=== PATIENT | female | born 1995 | race Caucasian/White ===

== ENCOUNTER 2019-03-02 11:31 | Emergency (ER) | payer BC, SELFPAY ==
[2019-03-02 11:43] VITALS: BP 108/69; PULSE 145; RESP 18; TEMP 36.7; O2SAT 96; BMI 27.3
--- NOTE | 2019-03-02 11:51 | XR_ITS ---
XR chest portable HISTORY: ITS.REASON: tachycardia ORDERING PHYSICIAN: Shlomo Nevarez MD PATIENT AGE: 23 years COMPARISON: None FINDINGS: The cardiomediastinal silhouette and pulmonary vascularity are within normal limits. The lungs are clear without infiltrates, suspicious nodules, or pleural effusions. There is mild elevated right hemidiaphragm No acute bony abnormalities. IMPRESSION: No acute finding
--- NOTE | 2019-03-02 11:53 | HMH.EDGENADL ---
ED Disposition Clinical Impression: Sinus tachycardia Disposition: Home, Self-Care Condition on Discharge: Good Prescriptions: Metoprolol Tartrate [Lopressor 25mg tablet] 25 mg PO BID 7 Days #14 tab Referrals: Provider,Nita, [Primary Care Provider] - Stephan Martin MD [Staff Physician] - - Critical Care Critical Care Time: No Attestation: On , the high probability of a clinically significant, sudden or life threatening deterioration of the following system(s) required my full and direct attention, intervention and personal management. The time I documented below is in addition to time spent performing reported procedures but includes the following listed in this critical care notation. Medical Decision Making - Medical Records Medical records reviewed: Yes: I reviewed the patient's medical records. - Toño Inquiry Pt receiving controlled substance: No Vital Signs: 03/02/19 11:43 03/02/19 13:31 03/02/19 14:14 Temperature 98.1 F Temperature Source Oral Pulse Rate [Right Brachial] 145 H 126 H 140 H Respiratory Rate 18 Blood Pressure [Right Arm] 108/69 L 106/50 L 117/71 Blood Pressure Mean [Right Arm] 82 68 86 Blood Pressure Source [Right Arm] Automatic Cuff Blood Pressure Position [Right Arm] Sitting 02 Sat by Pulse Oximetry 96 98 100 Oxygen Delivery Method Room Air 03/02/19 16:00 Temperature Temperature Source Pulse Rate [Right Brachial] 132 H Respiratory Rate 18 Blood Pressure [Right Arm] 98/62 L Blood Pressure Mean [Right Arm] 74 Blood Pressure Source [Right Arm] Automatic Cuff Blood Pressure Position [Right Arm] Sitting 02 Sat by Pulse Oximetry 98 Oxygen Delivery Method Room Air - Lab Data Lab results reviewed: Yes: I reviewed the patient's lab results. Lab Results 03/02/19 11:40: WBC 13.7 H, RBC 4.67, Hgb 13.9, Hct 38.8, MCV 83.1, MCH 29.7, MCHC 35.7 H, RDW 13.0, Plt Count 249, MPV 7.3 L, Neut % (Auto) 85.8 H, Lymph % (Auto) 9.1 L, [place] % (Auto) 4.6, Eos % (Auto) 0.1, Baso % (Auto) 0.4, Neut # (Auto) 11.8 H, Lymph # (Auto) 1.3, [place] # (Auto) 0.6, Eos # (Auto) 0.0, Baso # (Auto) 0.1, Total Counted 100, Neutrophils % (Manual) 83 H, Band Neutrophils % 7.0, Lymphocytes % (Manual) 5 L, Monocytes % (Manual) 4, Eosinophils % (Manual) 1, Platelet Estimate Normal, RBC Morphology Normal 03/02/19 11:40: D-Dimer 101 03/02/19 11:40: Sodium 136, Potassium 3.8, Chloride 100, Carbon Dioxide 22, Anion Gap 17.8 H, BUN 10, Creatinine 0.84, Estimated Creat Clear 132, Estimated GFR 85, Est GFR ( Amer) 103, Glucose 97, Calcium 8.5, Total Bilirubin 0.7, AST 19, ALT 31, Alkaline Phosphatase 60, Total Creatine Kinase 43, Troponin I < 0.02, Total Protein 7.3, Albumin 3.6, Globulin 3.7 H, Albumin/Globulin Ratio 1.0 L, TSH 0.67, Thyroxine (T4) 8.3 03/02/19 11:45: Urine Color Yellow, Urine Appearance Sl cloudy, Urine pH 6.5, Ur Specific [place] 1.025, Urine Protein 1+, Urine Glucose (UA) Negative, Urine Ketones Negative, Urine Blood 1+, Urine Nitrate Negative, Urine Bilirubin Negative, Urine Urobilinogen 0.2, Ur Leukocyte Esterase 2+ A, Urine RBC Occasional, Urine WBC 5-10, Ur Squamous Epith Cells 20-50, Urine Bacteria 1+ 03/02/19 11:45: Urine HCG, Qual Negative 03/02/19 11:45: Urine Opiates Screen Negative, Urine Methadone Screen Negative, Ur Barbituates Screen Negative, Ur Phencyclidine Scrn Negative, Ur Amphetamines Screen Negative, U Benzodiazepines Scrn Negative, Urine Cocaine Screen Negative, U Marijuana (THC) Screen Negative 03/02/19 13:14: Group A Strep Rapid Negative 03/02/19 13:41: Lactate 1.5 Result diagrams: 03/02/19 11:40 03/02/19 11:40 Orders (Tests/Meds): ED MEDICATIONS Discontinued Medications Generic Name Dose Route Start Last Admin Trade Name Freq PRN Reason Stop Dose Admin Sodium Chloride 1,000 mls @ 999 mls/hr 03/02/19 12:00 03/02/19 12:21 Sod Chlor 0.9% 1000ml Bag IV 03/02/19 13:00 999 mls/hr .Q1H1M BRANDON Administration Metoprolol Tartrate 5 mg 03/02
--- NOTE | 2019-03-02 11:56 | ED_ITS ---
ED Disposition Clinical Impression: Sinus tachycardia Disposition: Home, Self-Care Condition on Discharge: Good Prescriptions: Metoprolol Tartrate [Lopressor 25mg tablet] 25 mg PO BID 7 Days #14 tab Referrals: Provider,Nita, [Primary Care Provider] - Stephan Martin MD [Staff Physician] - - Critical Care Critical Care Time: No Attestation: On , the high probability of a clinically significant, sudden or life threatening deterioration of the following system(s) required my full and direct attention, intervention and personal management. The time I documented below is in addition to time spent performing reported procedures but includes the following listed in this critical care notation. Medical Decision Making - Medical Records Medical records reviewed: Yes: I reviewed the patient's medical records. - Toño Inquiry Pt receiving controlled substance: No Vital Signs: 03/02/19 11:43 03/02/19 13:31 03/02/19 14:14 Temperature 98.1 F Temperature Source Oral Pulse Rate [Right Brachial] 145 H 126 H 140 H Respiratory Rate 18 Blood Pressure [Right Arm] 108/69 L 106/50 L 117/71 Blood Pressure Mean [Right Arm] 82 68 86 Blood Pressure Source [Right Arm] Automatic Cuff Blood Pressure Position [Right Arm] Sitting 02 Sat by Pulse Oximetry 96 98 100 Oxygen Delivery Method Room Air 03/02/19 16:00 Temperature Temperature Source Pulse Rate [Right Brachial] 132 H Respiratory Rate 18 Blood Pressure [Right Arm] 98/62 L Blood Pressure Mean [Right Arm] 74 Blood Pressure Source [Right Arm] Automatic Cuff Blood Pressure Position [Right Arm] Sitting 02 Sat by Pulse Oximetry 98 Oxygen Delivery Method Room Air - Lab Data Lab results reviewed: Yes: I reviewed the patient's lab results. Lab Results 03/02/19 11:40: WBC 13.7 H, RBC 4.67, Hgb 13.9, Hct 38.8, MCV 83.1, MCH 29.7, MCHC 35.7 H, RDW 13.0, Plt Count 249, MPV 7.3 L, Neut % (Auto) 85.8 H, Lymph % (Auto) 9.1 L, [place] % (Auto) 4.6, Eos % (Auto) 0.1, Baso % (Auto) 0.4, Neut # (Auto) 11.8 H, Lymph # (Auto) 1.3, [place] # (Auto) 0.6, Eos # (Auto) 0.0, Baso # (Auto) 0.1, Total Counted 100, Neutrophils % (Manual) 83 H, Band Neutrophils % 7.0, Lymphocytes % (Manual) 5 L, Monocytes % (Manual) 4, Eosinophils % (Manual) 1, Platelet Estimate Normal, RBC Morphology Normal 03/02/19 11:40: D-Dimer 101 03/02/19 11:40: Sodium 136, Potassium 3.8, Chloride 100, Carbon Dioxide 22, Anion Gap 17.8 H, BUN 10, Creatinine 0.84, Estimated Creat Clear 132, Estimated GFR 85, Est GFR ( Amer) 103, Glucose 97, Calcium 8.5, Total Bilirubin 0.7, AST 19, ALT 31, Alkaline Phosphatase 60, Total Creatine Kinase 43, Troponin I < 0.02, Total Protein 7.3, Albumin 3.6, Globulin 3.7 H, Albumin/Globulin Ratio 1.0 L, TSH 0.67, Thyroxine (T4) 8.3 03/02/19 11:45: Urine Color Yellow, Urine Appearance Sl cloudy, Urine pH 6.5, Ur Specific [place] 1.025, Urine Protein 1+, Urine Glucose (UA) Negative, Urine Ketones Negative, Urine Blood 1+, Urine Nitrate Negative, Urine Bilirubin Negative, Urine Urobilinogen 0.2, Ur Leukocyte Esterase 2+ A, Urine RBC Occasional, Urine WBC 5-10, Ur Squamous Epith Cells 20-50, Urine Bacteria 1+ 03/02/19 11:45: Urine HCG, Qual Negative 03/02/19 11:45: Urine Opiates Screen Negative, Urine Methadone Screen Negative, Ur Barbituates Screen Negative, Ur Phencyclidine Scrn Negative, Ur Amphetamines Sc
[2019-03-02 12:08] LABS: Microscopic, Urine URINE MICROSCOPIC (MICROSCOPIC)
[2019-03-02 12:12] LABS: Appearance,Urine SL CLOUDY (Clear); Bilirubin,Urine Negative (Negative); Blood, Urine 1+ (Negative); Color,Urine YELLOW (Yellow); Glucose,Urine (UA) Negative (Negative); Ketones,Urine Negative (Negative); Leukocyte Esterase,Urine 2+ (Negative); Nitrate,Urine Negative (Negative); PH,Urine 6.5 (5.0-8.5); Protein,Urine 1+ (Negative); Specific Gravity, Urine 1.025 (1.005-1.030); Urobilinogen,Urine 0.2 EU/dl (0.2)
[2019-03-02 12:18] LABS: Basophils # 0.1 K/mm3 (0-0.2); Basophils % 0.4 % (0.1-2.0); Eosinophils % 0.1 % (0.1-12.0); Hematocrit 38.8 % (37.0-47.0); Hemoglobin 13.9 g/dL (12.2-16.2); Lymphocytes # 1.3 K/mm3 (0.7-4.5); Lymphocytes % 9.1 % (10-50); Mean Corpuscular HGB Conc 35.7 g/dL (31.8-35.4); Mean Corpuscular Hemoglobin 29.7 pg (27.0-31.2); Mean Corpuscular Volume 83.1 fl (81-99); Mean Platelet Volume 7.3 fl (7.4-10.4); Monocytes # 0.6 K/mm3 (0.1-1.0); Monocytes % 4.6 % (1.7-9.3); Neutrophils # 11.8 K/mm3 (1.8-7.8); Neutrophils % 85.8 % (37.0-80.0); Platelet Count 249 K/mm3 (142-424); Red Blood Count 4.67 M/mm3 (4.20-5.40); White Blood Count 13.7 K/mm3 (4.8-10.8)
[2019-03-02 12:20] LABS: MANUAL DIFFERENTIAL MANUAL DIFFERENTIAL (MANUAL DIFF)
[2019-03-02 12:26] LABS: Bacteria,Urine 1+ /lpf; RBC,Urine Occasional #/hpf (0-3); Squamous Epithelial Cell,Urine 20-50 #/hpf (0-5)
[2019-03-02 12:28] LABS: Amphetamine/Metha Screen,Urine Negative ng/mL (<1000); Barbiturates Screen,Urine Negative ng/mL (<200); Benzodiazepines Screen,Urine Negative ng/mL (<200); Cannabinoid Screen,Urine Negative ng/mL (<50); Cocaine Screen,Urine Negative ng/mL (<300); Methadone Screen,Urine Negative ng/mL (<300); Opiate Screen,Urine Negative ng/mL (<300); Phencyclidine Screen,Urine Negative ng/mL (<25)
[2019-03-02 12:32] LABS: Troponin I < 0.02 ng/ml (0.00-0.06)
[2019-03-02 12:33] LABS: Eosinophils % 1 % (0-3); Lymphocytes % 5 % (10-50); Monocytes % 4 % (2-9); Neutrophils % 83 % (42-76); Platelet Estimate Normal; RBC Morphology Normal; Total Cells Counted 100
[2019-03-02 12:37] LABS: Alanine Aminotransferase 31 U/L (12-78); Albumin Level 3.6 gm/dL (3.4-5.0); Alkaline Phosphatase 60 U/L (46-116); Anion Gap 17.8 mEq/L (5-15); Aspartate Amino Transferase 19 U/L (15-37); Bilirubin,Total 0.7 mg/dL (0.2-1.0); Blood Urea Nitrogen 10 mg/dL (7-18); Calcium 8.5 mg/dL (8.5-10.1); Carbon Dioxide 22 mmol/L (21.0-32.0); Chloride 100 mmol/L (98-107); Creatine Kinase 43 U/L (26-192); Creatinine Clearance Estimated 132 mL/min (50-200); Creatinine,Serum 0.84 mg/dL (0.55-1.02); Estimated Glomerular Filt Rate 85 ml/min (>60); GFR (African American) 103 ML/MIN (>60); Globulin 3.7 gm/dl (1.3-3.2); Glucose 97 mg/dL (74-106); Potassium 3.8 mmoL/L (3.5-5.1); Sodium 136 mmol/L (136-145); T4 (Thyroxine) 8.3 ug/dl (4.7-13.3); Thyroid Stimulating Hormone 0.67 uIU/ml (0.358-3.740); Total Protein,Serum 7.3 gm/dL (6.4-8.2)
[2019-03-02 12:38] LABS: Urine Pregnancy, HCG Qual. Negative (Negative)
[2019-03-02 12:46] LABS: D-Dimer 101 ng/mL (0-400)
[2019-03-02 13:30] LABS: Strep Scrn Group A (Rapid) Negative (Negative)
[2019-03-02 13:31] VITALS: BP 106/50; PULSE 126; O2SAT 98
[2019-03-02 14:03] LABS: Lactic Acid 1.5 mmol/L (0.4-2.0)
[2019-03-02 14:14] VITALS: BP 117/71; PULSE 140; O2SAT 100
--- NOTE | 2019-03-02 14:24 | PC.NURSE ---
call placed for on-call cardiology
--- NOTE | 2019-03-02 14:33 | PC.NURSE ---
received call back from dr bernal
[2019-03-02 16:00] VITALS: BP 98/62; PULSE 132; RESP 18; O2SAT 98
[2019-03-02 17:29] VITALS: BP 93/47; PULSE 119; RESP 16; TEMP 36.6; O2SAT 99
== END 2019-03-02 17:31 | disposition home or self-care (01) ==
PROVIDERS: Emergency Provider Emergency Medicine Emergency Medical Services
DX: R00.0 Tachycardia, unspecified (principal); N30.00 Acute cystitis without hematuria; Z88.2 Allergy status to sulfonamides
CPT/HCPCS: 36415; 71045; 80053; 80305; 81001; 81025; 82550; 83605; 84436; 84443; 84484; 85007; 85025; 85378; 87086; 87430; 93005; 96365; 96375; 96376; 99284

== ENCOUNTER → 2019-03-19 13:12 | Outpatient (CLI) | payer BC, SELFPAY ==
--- NOTE | 2019-03-19 13:15 | CA_ITS ---
PROCEDURE: 2-D M-mode and color Doppler study INDICATIONS FOR THE TEST: Chest pain COPD Heart Murmur Tobacco Smokingex Palpitations Fatigue Syncope Edema Hypertension Diabetes Mellitus Rheumatic Fever SOB+MARES Obesity Hyperlipidemia Family History HD+ Additional History TACHYCARDIA PATIENT INFORMATION HEIGHT: 69 WEIGHT:223 GENDER: Female B/P:123/69 2-D/M-MODE INTERPRETATION: 2-D MEASUREMENTS OBSERVED VALUES IN CMS Right Ventricular Dimension (RVDd) 2.0 Interventricular Septum (Thickness)(IVsd) 0.9 Left Ventricular Internal Dimensions(LVIDd) 5.4 Left Ventricular Posterior Wall (Thickness)(LVPWd) 0.7 Aortic Root 2.5 Aortic Cusp Separation 2.2 Left Atrial Dimensions (LAD) 3.7 2D 1. Left atrium is normal size, left ventricle is normal size, there is no concentric left ventricular hypertrophy, visually estimated ejection fraction 55% with no regional wall motion abnormality. 2. The right atrium and right ventricle are normal size and contractility. 3. The aortic, mitral and tricuspid valvular grossly normal. 4. The pulmonic valve is grossly normal. 5. No significant pericardial effusion noted. DOPPLER INTERROGATION: Doppler interrogation of the aortic, mitral and tricuspid valvular presence of trace mitral and tricuspid regurgitation of no hemodynamic significance, diastolic parameters are within normal range. CONCLUSION: 1. Normal left ventricular size, preserved left ventricular systolic function, visually estimated ejection fraction 55% no regional wall motion abnormality, diastolic parameters are within normal range. 2. Trace mitral and tricuspid regurgitation of no hemodynamic significance 3. No significant pericardial effusion noted.
== END ==
PROVIDERS: Visit Provider Internal Medicine
DX: R06.02 Shortness of breath (principal)
CPT/HCPCS: 93306

== ENCOUNTER 2020-02-23 13:03 | Emergency (ER) | payer BC, SELFPAY ==
[2020-02-23 13:32] VITALS: BP 131/75; PULSE 81; RESP 20; TEMP 36.8; O2SAT 98; BMI 33.0
--- NOTE | 2020-02-23 13:33 | HMH.EDUTC ---
[facility] [place] Disposition Clinical Impression: UTI (urinary tract infection) Qualifiers: Urinary tract infection type: site unspecified Hematuria presence: with hematuria Qualified Code(s): N39.0 - Urinary tract infection, site not specified Disposition: Home, Self-Care Condition on Discharge: Good Instructions: Urinary Tract Infection Additional Instructions: Drink plenty of fluids. Take tylenol or ibuprofen for pain or fever. Take the medications as directed. Follow up with your regular doctor. GO TO THE ER FOR ANY WORSENING SYMPTOMS The pyridium will make your urine turn orange, this is an expected side effect. It will stain your clothes if it comes into contact with them. Prescriptions: Ciprofloxacin HCl [Cipro 500mg Tab] 500 mg PO BID 7 Days #14 tab Transmission Status: Received by [employer] #[id number] Fluconazole [Diflucan 150mg tab] 150 mg PO ONCE #1 tab Transmission Status: Received by [employer] #[id number] Tamsulosin HCl [Flomax 0.4mg capsule] 0.4 mg PO HS #30 cap Transmission Status: Received by [employer] #[id number] Phenazopyridine HCl [Pyridium 200mg Tablet] 200 pow PO TID #6 tab Transmission Status: Received by [employer] #[id number] Referrals: Provider,Referral, [Primary Care Provider] - Time of Disposition: 14:02 Medical Decision Making - Medical Records Medical records reviewed: No: I reviewed the patient's medical records. - Toño Inquiry Pt receiving controlled substance: No Vital Signs: 02/23/20 13:32 02/23/20 14:00 Temperature 98.2 F 98.2 F Temperature Source Oral Pulse Rate 81 Pulse Rate [Right Brachial] 81 Respiratory Rate 20 20 Blood Pressure 131/75 Blood Pressure [Right Arm] 131/75 Blood Pressure Mean [Right Arm] 93 Blood Pressure Source [Right Arm] Manual Cuff/ Doppler Blood Pressure Position [Right Arm] Sitting 02 Sat by Pulse Oximetry 98 Oxygen Delivery Method Room Air - Lab Data Lab results reviewed: Yes: I reviewed the patient's lab results. Lab Results 02/23/20 13:25: Urine Color Dark yellow, Urine Appearance Clear, Urine pH 5.5, Ur Specific [place] 1.025, Urine Protein Trace, Urine Glucose (UA) Negative, Urine Ketones Trace, Urine Blood Trace, Urine Nitrate Negative, Urine Bilirubin 1+ A, Urine Urobilinogen 0.2, Ur Leukocyte Esterase 1+ A Orders (Tests/Meds): ORDERS Category Date Time Status Urine Culture Stat Micro 02/23/20 14:10 Received [facility] [place] HPI - General Stated complaint: possible UTI Time Seen by Provider: 02/23/20 13:34 - History of Present Illness Provider Complaint: She c/o 2 days of low back pain and burning while urinating. She sometimes gets UTIs. That is what she thinks is going on now. - Related Data Home Medications Medication Instructions Recorded Confirmed norgestimate-ethinyl estradioL 1 tab PO DAILY 03/02/19 02/23/20 [Halle 0.25-0.035 mg Tablet] bisoproloL fumarate [Bisoprolol 10 mg PO DAILY 02/23/20 02/23/20 10mg Tablet] Previous Rx's Medication Instructions Recorded Ciprofloxacin HCl [Cipro 500mg 500 mg PO BID 7 Days #14 tab 02/23/20 Tab] Fluconazole [Diflucan 150mg tab] 150 mg PO ONCE #1 tab 02/23/20 Phenazopyridine HCl [Pyridium 200 pow PO TID #6 tab 02/23/20 200mg Tablet] Tamsulosin HCl [Flomax 0.4mg 0.4 mg PO HS #30 cap 02/23/20 capsule] Allergies Allergy/AdvReac Type Severity Reaction Status Date / Time Sulfa (Sulfonamide Allergy Verified 02/23/20 13:35 Antibiotics) [facility] History - Hepatitis A Screen Attestation statement:: This patient has been screened for Hepatitis A risk factors. I have reviewed the patient's past medical history: Yes Medical History: Reports:: Anxiety, Depression, Palpitations Comment: PCOS, sinus tachycardia Laterality Cases: Left: Arthroscopy Knee Other Surgeries: Yes: Diagnostic Lap Amputation: No Fractures: No - Social History Smoking Status: Never smo
[2020-02-23 13:37] LABS: Apearance,Urine Clear (Clear); Color,Urine Dark Yellow (Yellow); PH,Urine 5.5 (5.0-8.5); Protein,Urine Trace (Negative); Specific Gravity, Urine 1.025 (1.005-1.030)
[2020-02-23 13:38] LABS: Bilirubin,Urine 1+ (Negative); Blood, Urine Trace (Negative); Glucose,Urine (UA) Negative (Negative); Ketones,Urine TRACE (Negative); UTC Leukocyte Esterase,Urine 1+ (Negative); UTC Nitrate,Urine Negative (Negative); Urobilinogen,Urine 0.2 EU/dl (0.2)
[2020-02-23 14:00] VITALS: BP 131/75; PULSE 81; RESP 20; TEMP 36.8; O2SAT 98
== END 2020-02-23 14:05 | disposition home or self-care (01) ==
PROVIDERS: Emergency Provider Nurse Practitioner Family
DX: N30.00 Acute cystitis without hematuria (principal); F41.8 Other specified anxiety disorders
CPT/HCPCS: 81003; 87086; 99201

== ENCOUNTER → 2020-05-07 08:36 | Outpatient (CLI) | payer BC, MEDICAID, SELFPAY ==
--- NOTE | 2020-05-07 08:37 | CA_ITS ---
APPROVED REPORT Exam: Exercise Treadmill Technologist: Kia Salgado, Ht: 5 ft 10 in Wt: 232 lbs BSA: 2.22 m2 HR: 74 bpm BP: 106/63 mmHg Rhythm: NSR,NORMAL Medical History Medical History: TACHYCARDIA Medications: BisOPROLOL,,,,, Stress Test Details Test: Abhishek HR Resting HR: 89 bpm Max Heart Rate (APMHR): 197 bpm Max HR Achieved: 167 bpm Target HR (85% APMHR): 167 bpm % of APMHR: 84 Recovery HR: 138 bpm BP Resting BP: 106.0/63.0 mmHg Max BP: 140.0/64.0 mmHg Recovery BP: 134.0/70.0 mmHg ECG Resting ECG: NSR Clinical Exercise duration: 07:33 min Highest Stage Achieved: Exercise capacity: 10.1 METs Stress ECG Conclusion EXERCISED 7:33 ON ABHISHEK PROTOCOL STOPPING DUE TO SOA. MAX HEART RATE 167 BPM WHICH IS 85% OF PM FOR AGE. ,AX BP 140/64. METS = 10.1. TEST STOPPED DUE TO LEG FATIGUE AND SOA. FLEETING DULL CHEST DISCOMFOERT POST EXERCISE. NO ARRHYTHMIAS/ECTOPY. ALLOWING FOR MOTION ARTIFACT THE ST RESPONSE TO EXERCISE APPEARS TO BE WITHIN NORMAL. THERE IS NS T WAVE INVERSION IN LEADS 111 AND aVF. ATYPICAL CP AFTER EXERCISE. NORMAL STRESS ECG. GXT ONLY(NO IMAGING) Test Summary REST . . . . . . . Standing REST . . . . . . . Sitting REST 05:20 0.0 0.0 89 . 106/ 63 . . Stage 1 01:00 10.0 1.7 115 . . . . Stage 1 02:00 10.0 1.7 124 . . . . Stage 1 03:00 10.0 1.7 129 . 132/ 60 . . Stage 2 01:00 12.0 2.5 136 . . . . Stage 2 02:00 12.0 2.5 138 . . . . Stage 2 03:00 12.0 2.5 145 . 140/ 64 . . Stage 3 01:00 14.0 3.4 161 . . . . Stage 3 01:33 14.0 3.4 166 . . . Stop exercise at 07:33 RECOVERY 01:00 0.0 0.0 137 . . . . RECOVERY . . . . . . . Chest pain RECOVERY 02:00 0.0 0.0 115 . . . . RECOVERY 03:00 0.0 0.0 104 . 140/ 80 . . RECOVERY 04:00 0.0 0.0 106 . 123/ 72 . . RECOVERY 05:00 0.0 0.0 106 . 127/ 67 . . RECOVERY 05:19 0.0 0.0 99 . 127/ 67 . . Electronically signed by : Naveed Ivory, 05/07/2020 14:32:46
== END ==
PROVIDERS: PCP Internal Medicine; Visit Provider Nurse Practitioner Family
DX: R07.9 Chest pain, unspecified (principal); R06.02 Shortness of breath; R00.0 Tachycardia, unspecified; R60.9 Edema, unspecified
CPT/HCPCS: 93017

== ENCOUNTER 2020-06-24 17:27 | Emergency (ER) | payer BC, MEDICAID, SELFPAY ==
[2020-06-24 17:55] VITALS: BP 109/57; PULSE 72; RESP 17; TEMP 36.9; O2SAT 100; BMI 32.5
[2020-06-24 18:06] VITALS: BP 109/57; PULSE 72; RESP 17; TEMP 36.9; O2SAT 100
[2020-06-24 18:08] LABS: Apearance,Urine Clear (Clear); Bilirubin,Urine Negative (Negative); Blood, Urine Negative (Negative); Color,Urine Yellow (Yellow); Glucose,Urine (UA) Negative (Negative); Ketones,Urine Negative (Negative); PH,Urine 6.5 (5.0-8.5); Protein,Urine Negative (Negative); Specific Gravity, Urine 1.005 (1.005-1.030); Urobilinogen,Urine 0.2 EU/dl (0.2)
[2020-06-24 18:09] LABS: UTC Leukocyte Esterase,Urine Trace (Negative); UTC Nitrate,Urine Negative (Negative)
--- NOTE | 2020-06-24 18:29 | HMH.EDUTC ---
[facility] [place] Disposition Clinical Impression: UTI (urinary tract infection) Qualifiers: Urinary tract infection type: site unspecified Hematuria presence: without hematuria Qualified Code(s): N39.0 - Urinary tract infection, site not specified Disposition: Home, Self-Care Condition on Discharge: Good Instructions: Urinary Tract Infection, DI for Urinary Tract Infection (UTI), Phenazopyridine, Nitrofurantoin Additional Instructions: *Increase fluids. Water not Soda or Tea *Start antibiotic immediately and be sure to take as ordered for the FULL length of time although you should start to see improvement over the next 48 hours *Pyridium as needed Remember this medication will turn your urine Price. This is normal but it will stain what ever it gets on *You should not use Pyridium for more than 48 hours. If so , follow up with your primary physician to review urine culture and ensure that antibiotic is adequate for infection *Be SURE to follow up anytime for new or worsening symptoms with your family doctor. AND in 48 hours for urine culture results with your family doctor, if you do not have a doctor then you may call back to the [facility] for urine culture results and further treatment. We do recommend that you choose and establish care with a Primary Care Physician. AND follow up with them in 10-14 days to repeat UA to ensure infection is resolved and blood no longer present *Be sure to let your PCP know that we sent urine cultures from the [facility] so they can follow up to ensure that you area the on the correct antibiotic Call your doctor office and make appointment for 48 hours (2 days from today) to follow up and get the results of your urine culture and further treatment Take medication as prescribed Return if needed Straight to ER if any life threatening symptoms Prescriptions: Fluconazole [Diflucan 150mg tab] 150 mg PO ONCE #1 tab Transmission Status: Pending to [email or web address] # Nitrofurantoin Monohyd/M-Cryst [Macrobid 100 mg Capsule] 100 mg PO BID 10 Days #20 cap Transmission Status: Pending to [facility] # Phenazopyridine HCl [Pyridium 200mg Tablet] 200 pow PO TID #6 tab Transmission Status: Pending to [facility] # Referrals: Ingrid Fernando PA [Primary Care Provider] - As needed Time of Disposition: 18:36 Medical Decision Making - Toño Inquiry Pt receiving controlled substance: No Toño was queried for this patient: No Vital Signs: 06/24/20 17:55 06/24/20 18:06 Temperature 98.5 F 98.5 F Temperature Source Oral Pulse Rate 72 Pulse Rate [Left] 72 Respiratory Rate 17 17 Blood Pressure 109/57 L Blood Pressure [Right Arm] 109/57 L Blood Pressure Mean [Right Arm] 74 Blood Pressure Source [Right Arm] Automatic Cuff Blood Pressure Position [Right Arm] Sitting 02 Sat by Pulse Oximetry 100 Oxygen Delivery Method Room Air - Lab Data Lab Results 06/24/20 17:47: Urine Color Yellow, Urine Appearance Clear, Urine pH 6.5, Ur Specific [place] 1.005, Urine Protein Negative, Urine Glucose (UA) Negative, Urine Ketones Negative, Urine Blood Negative, Urine Nitrate Negative, Urine Bilirubin Negative, Urine Urobilinogen 0.2, Ur Leukocyte Esterase Trace Orders (Tests/Meds): ORDERS Category Date Time Status Urine Culture Stat Micro 06/24/20 18:00 Received [facility] [place] HPI - General Stated complaint: Possible UTI Time Seen by Provider: 06/24/20 18:29 Mode of Arrival: Ambulatory Source of Information: Patient Limitations: No Limitations Description of Symptoms (Recalled from Triage Doc. by RN): Possible UTI HEENT Symptoms (Recalled from RN notes): No Resp Symptoms (Recalled from RN notes): No Skin Symptoms (Recalled from RN notes): No MS Symptoms (Recalled from RN notes): No Functional Status (Recalled from RN notes): WNL - History of Present Illness Provider Complaint: Patient states that she has been urinating more frequenty than usual States that she has frequent
== END 2020-06-24 18:44 | disposition home or self-care (01) ==
PROVIDERS: Emergency Provider Nurse Practitioner; PCP Physician Assistant
DX: N30.00 Acute cystitis without hematuria (principal); F41.8 Other specified anxiety disorders
CPT/HCPCS: 81003; 87086; 99201

== ENCOUNTER → 2020-07-27 21:15 | Outpatient (CLI) | payer MEDICAID, SELFPAY | PROVIDERS: Visit Provider Nurse Practitioner Family | DX: N39.0 Urinary tract infection, site not specified (principal) | CPT/HCPCS: 87086 ==

== ENCOUNTER → 2020-08-12 17:09 | Outpatient (CLI) | payer MEDICAID, SELFPAY | PROVIDERS: Visit Provider Nurse Practitioner Family | DX: N39.0 Urinary tract infection, site not specified (principal) | CPT/HCPCS: 87210 ==

== ENCOUNTER → 2021-10-17 12:55 | Outpatient (CLI) | payer OTHER, SELFPAY | PROVIDERS: Visit Provider Nurse Practitioner Family | DX: U07.1 COVID-19 (principal) | CPT/HCPCS: C9803; U0003; U0005 ==

== ENCOUNTER 2021-11-04 09:11 | Emergency (ER) | payer OTHER, SELFPAY ==
--- NOTE | 2021-11-04 10:17 | XR_ITS ---
FINAL REPORT CLINICAL HISTORY: COUGH..covid 2 weeks ago..fever COMPARISON: March 02, 2019 FINDINGS: Two views of the chest were obtained. The heart size and pulmonary vascularity are within normal limits. The mediastinum is normal. No acute pulmonary abnormality is identified. There is no pneumothorax. The bony thorax is intact. IMPRESSION: No active cardiopulmonary disease. Reviewed, Interpreted and Dictated by Brannon Braun III, MD Transcribed by Ike Ramsay Authenticated by Brannon Braun III, MD on 11/04/2021 11:00:[address] [facility]
[2021-11-04 10:28] VITALS: BP 95/56; PULSE 83; RESP 20; TEMP 36.7; O2SAT 98; BMI 38.0
--- NOTE | 2021-11-04 10:34 | HMH.EDUTC ---
[facility] [place] Disposition Clinical Impression: Pharyngitis Qualifiers: Pharyngitis/tonsillitis etiology: unspecified etiology Qualified Code(s): J02.9 - Acute pharyngitis, unspecified Disposition: Home, Self-Care Condition on Discharge: Good Instructions: Strep Throat, DI for Strep Throat Additional Instructions: Drink plenty of fluids. Take tylenol or ibuprofen for pain or fever. Take the medications as directed. Follow up with your regular doctor. GO TO THE ER FOR ANY WORSENING SYMPTOMS Don't start the oral steroids until tomorrow, since you had the shot here today. Finish the augment antibiotics that you are on. Prescriptions: Brompheniramine/Pseudoephed/Dm [Bromfed Dm Cough Syrup] 5 ml PO Q6HP PRN #240 ml PRN Reason: Cough Transmission Status: Received by [employer] # methylPREDNISolone [Medrol] 4 mg PO DIRECTED 6 Days #21 packet Transmission Status: Received by [employer] # Referrals: Provider,Referral, [Primary Care Provider] - Time of Disposition: 11:20 Medical Decision Making - Medical Records Medical records reviewed: No: I reviewed the patient's medical records. - Toño Inquiry Pt receiving controlled substance: No Vital Signs: 11/04/21 10:28 11/04/21 10:57 Temperature 98.1 F 98.1 F Temperature Source Oral Pulse Rate 83 Pulse Rate [Left] 83 Respiratory Rate 20 20 Blood Pressure 95/56 L Blood Pressure [Right Arm] 95/56 L Blood Pressure Mean [Right Arm] 69 02 Sat by Pulse Oximetry 98 - Lab Data Lab results reviewed: Yes: I reviewed the patient's lab results. Lab Results 11/04/21 10:20: Group A Strep Rapid Negative Orders (Tests/Meds): ORDERS Category Date Time Status Strep Screen Confirmation Stat Micro 11/04/21 10:20 Received - Radiology Data #1 Image(s): Chest Image Reviewed: Yes I reviewed the patient's radiology image, Yes I have reviewed radiologist's interpretation Preliminary Findings: Normal/NAD, No Infiltrates Seen FINAL REPORT CLINICAL HISTORY: COUGH..covid 2 weeks ago..fever COMPARISON: March 02, 2019 FINDINGS: Two views of the chest were obtained. The heart size and pulmonary vascularity are within normal limits. The mediastinum is normal. No acute pulmonary abnormality is identified. There is no pneumothorax. The bony thorax is intact. IMPRESSION: No active cardiopulmonary disease. Reviewed, Interpreted and Dictated by Brannon Braun III, MD Transcribed by Ike Ramsay Authenticated by Brannon Braun III, MD on 11/04/2021 11:00:20 AM [facility] HPI - General Stated complaint: sore throat, cough Time Seen by Provider: 11/04/21 10:34 - History of Present Illness Provider Complaint: She states that for the past 2 days she has had a sore throat, chills, and she has felt bad. She did a telemedicine visit with her pcp yesterday and she was started on augmentin for pharyngitis. She brought her daughter in to be checked today, so she signed in to be checked too. She had covid-19 around 2 weeks ago, but she states that she got completely better from that. - Related Data Home Medications Medication Instructions Recorded Confirmed bisoprolol fumarate 10 mg tablet 10 mg PO tab 10/17/21 10/17/21 metformin 500 mg tablet,extended 500 mg PO tab 10/17/21 10/17/21 release 24 hr norgestimate 0.25 mg-ethinyl 1 tab PO tab 10/17/21 10/17/21 estradiol 35 mcg tablet Previous Rx's Medication Instructions Recorded Brompheniramine/Pseudoephed/Dm 5 ml PO Q6HP PRN #240 ml 11/04/21 [Bromfed Dm Cough Syrup] methylPREDNISolone [Medrol] 4 mg PO DIRECTED 6 Days #21 11/04/21 packet Allergies Allergy/AdvReac Type Severity Reaction Status Date / Time Sulfa (Sulfonamide Allergy Verified 10/17/21 13:02 Antibiotics) [facility] History - Hepatitis A Screen Attestation statement:: This patient has been screened for Hepatitis A risk factors. I
[2021-11-04 10:51] LABS: Strep Scrn Group A (Rapid) Negative (Negative)
[2021-11-04 10:57] VITALS: BP 95/56; PULSE 83; RESP 20; TEMP 36.7
== END 2021-11-04 11:32 | disposition home or self-care (01) ==
PROVIDERS: Emergency Provider Nurse Practitioner Family
DX: J02.9 Acute pharyngitis, unspecified (principal); E11.9 Type 2 diabetes mellitus without complications; F41.8 Other specified anxiety disorders; Z88.2 Allergy status to sulfonamides
CPT/HCPCS: 71046; 87430; 99202; G0463

== ENCOUNTER → 2021-12-15 15:46 | Outpatient (CLI) | payer OTHER, SELFPAY ==
[2021-12-15 16:24] LABS: Basophils % 0.6 % (0.1-2.0); Eosinophils # 0.1 K/mm3 (0.0-0.4); Eosinophils % 1.2 % (0.1-12.0); Hematocrit 38.6 % (37.0-47.0); Hemoglobin 12.9 g/dL (12.2-16.2); Lymphocytes # 2.3 K/mm3 (0.7-4.5); Lymphocytes % 32.8 % (10-50); Mean Corpuscular HGB Conc 33.4 g/dL (31.8-35.4); Mean Corpuscular Hemoglobin 29.5 pg (27.0-31.2); Mean Corpuscular Volume 88.3 fl (81-99); Monocytes # 0.4 K/mm3 (0.1-1.0); Neutrophils # 4.2 K/mm3 (1.8-7.8); Neutrophils % 60.4 % (37.0-80.0); Platelet Count 292 K/mm3 (142-424); Red Blood Count 4.38 M/mm3 (4.20-5.40); Red Cell Distribution Width 14.1 % (11.5-17.5); White Blood Count 6.9 K/mm3 (4.8-10.8)
[2021-12-15 16:46] LABS: Alanine Aminotransferase 26 U/L (12-78); Albumin Level 4.2 g/dl (3.5-5.0); Albumin/Globulin Ratio 1.6 (1.1-1.8); Alkaline Phosphatase 48 U/L (38-126); Anion Gap 10.9 mEq/L (5-15); Aspartate Amino Transferase 25 U/L (14-36); Bilirubin,Total 0.5 mg/dl (0.2-1.3); Blood Urea Nitrogen 13 mg/dl (7-17); Calcium 9.1 mg/dl (8.4-10.2); Carbon Dioxide 26 mmol/L (22.0-30.0); Chloride 107 mmol/L (98-107); Chol/HDL Ratio 2.3 (1-3.5); Cholesterol 152 mg/dl (140-200); Estimated Glomerular Filt Rate 150 ml/min (>60); GFR (African American) 182 ML/MIN (>60); Globulin 2.6 g/dL (1.3-3.2); Glucose 111 mg/dl (74-100); HDL Cholesterol 65 mg/dl (40-60); Potassium 3.9 mmoL/L (3.5-5.1); Sodium 140 mmol/L (136-145); Total Protein,Serum 6.8 g/dl (6.3-8.2); Triglycerides 199 mg/dl (30-150); VLDL Cholesterol 40 mg/dL (0-40)
[2021-12-15 16:58] LABS: Direct LDL Cholesterol 59.19 mg/dL (100-129)
[2021-12-15 17:04] LABS: Free Thyroxine Index 2.4 ug/dL (5.93-13.13); T4 (Thyroxine) 9.4 ug/dl (5.53-11.0); Triiodothryronine (T3) Uptake 26 % (23.5-40.5)
[2021-12-15 17:18] LABS: Thyroid Stimulating Hormone 1.42 uIU/mL (0.465-4.68)
[2021-12-15 17:35] LABS: Vitamin B12 321 pg/mL (239-931)
[2021-12-15 18:13] LABS: Hemoglobin A1C 5.1 % (4.0-6.0)
== END ==
PROVIDERS: Visit Provider Physician Assistant
DX: Z00.00 Encounter for general adult medical examination without abnormal findings (principal); R73.09 Other abnormal glucose; E55.9 Vitamin D deficiency, unspecified; R00.0 Tachycardia, unspecified
CPT/HCPCS: 36415; 80053; 80061; 82306; 82607; 83036; 84436; 84443; 84479; 85025

== ENCOUNTER 2022-02-27 10:05 | Emergency (ER) | payer BC, SELFPAY ==
[2022-02-27] VITALS (7 sets, daily range): BP systolic 105–132; BP diastolic 72–86; PULSE 86–102; RESP 13–20; TEMP 36.7; O2SAT 97–98; BMI 34.7
--- NOTE | 2022-02-27 10:43 | HMH.EDGENADL ---
ED Disposition Clinical Impression: Sinus tachycardia Disposition: Home, Self-Care Condition on Discharge: Good Additional Instructions: Follow up with your turbine attendant, return to the emergency department for any new or concerning symptoms. Referrals: Guadalupe Watson PA [Primary Care Provider] - - Critical Care Critical Care Time: No Attestation: On 02/27/22, the high probability of a clinically significant, sudden or life threatening deterioration of the following system(s) required my full and direct attention, intervention and personal management. The time I documented below is in addition to time spent performing reported procedures but includes the following listed in this critical care notation. Medical Decision Making - Medical Records Medical records reviewed: Yes: I reviewed the patient's medical records. - Toño Inquiry Pt receiving controlled substance: No Vital Signs: 02/27/22 10:06 02/27/22 10:34 02/27/22 11:00 Temperature 98.1 F Temperature Source Oral Pulse Rate 98 H 86 Pulse Rate [Left Radial] 102 H Respiratory Rate 18 18 20 Blood Pressure 105/73 L 109/72 L Blood Pressure [Right Arm] 132/86 Blood Pressure Mean 80 79 Blood Pressure Mean [Right Arm] 101 Blood Pressure Source [Right Arm] Automatic Cuff Blood Pressure Position [Right Arm] Sitting 02 Sat by Pulse Oximetry 98 98 97 Oxygen Delivery Method Room Air Room Air 02/27/22 11:30 Temperature Temperature Source Pulse Rate 86 Pulse Rate [Left Radial] Respiratory Rate 13 Blood Pressure 108/76 L Blood Pressure [Right Arm] Blood Pressure Mean 83 Blood Pressure Mean [Right Arm] Blood Pressure Source [Right Arm] Blood Pressure Position [Right Arm] 02 Sat by Pulse Oximetry 98 Oxygen Delivery Method - Lab Data Lab results reviewed: Yes: I reviewed the patient's lab results. Lab Results 02/27/22 10:39: WBC 5.5, RBC 4.76, Hgb 14.4, Hct 42.2, MCV 88.6, MCH 30.2, MCHC 34.1, RDW 13.5, Plt Count 314, MPV 8.2, Neut % (Auto) 49.7, Lymph % (Auto) 40.5, Tyler % (Auto) 6.1, Eos % (Auto) 2.7, Baso % (Auto) 1.0, Neut # (Auto) 2.7, Lymph # (Auto) 2.2, Tyler # (Auto) 0.3, Eos # (Auto) 0.2, Baso # (Auto) 0.1 02/27/22 10:39: Sodium 140, Potassium 3.8, Chloride 108 H, Carbon Dioxide 24, Anion Gap 11.8, BUN 9, Creatinine 0.60, Estimated Creat Clear 241, Estimated GFR 122, Est GFR ( Amer) 147, Glucose 101 H, Calcium 9.2, Magnesium 1.5 L, Total Bilirubin 0.4, AST 33, ALT 27, Alkaline Phosphatase 56, Troponin I < 0.01, Total Protein 6.9, Albumin 4.0, Globulin 2.9, Albumin/Globulin Ratio 1.4 Result diagrams: 02/27/22 10:39 02/27/22 10:39 Orders (Tests/Meds): ORDERS Category Date Time Status Troponin I Q3H Lab 02/27/22 14:00 Ordered Troponin I Q3H Lab 02/27/22 17:00 Ordered Medical Decision Narrative: Patient is a 26-year-old female presenting to the emergency department with chief complaint of tachycardia, chest discomfort. Patient past medical history of sinus tachycardia tachycardia of unknown origin. Differential diagnosis for this patient includes SVT, sinus tachycardia,hypomagnesemia, hypokalemia, among others. Plan order EKG, chest x-ray, CBC, CMP, magnesium, will also screen and initial troponin. Started was on elevated, potassium was 1.5, CBC, CMP grossly within normal meds. Chest x-ray did not show any abnormalities. Reviewed patient previous blood work, as well as TSH and T4, not concern acutely for hyperthyroidism. General Adult HPI - General Stated complaint: elevated heart rate Time Seen by Provider: 02/27/22 10:43 - History of Present Illness HPI narrative: Patient is a 26-year-old female with past medical history of paroxysmal sinus tachycardia. Patient states that this has been occurring for over a year, she is seen her turbine attendant twice, has had a stress test. She was put on bisoprolol and for the most part has heart rates in the 70s to 90s. However last night she began hav
--- NOTE | 2022-02-27 10:51 | ECG_ITS ---
APPROVED REPORT Exam: Resting ECG HR:84 bpm ECG Measurements Heart Rate 84 AXES VT 169 P 64 QRSd 83 QRS 35 QT 345 T 32 QTc 386 Conclusion SINUS RHYTHM WITH SINUS ARRHYTHMIA NORMAL ECG UNCONFIRMED REPORT Electronically signed by : Lauri Carl MD 02/28/2022 09:40:27
--- NOTE | 2022-02-27 10:57 | XR_ITS ---
PROCEDURE INFORMATION: Exam: XR Chest Exam date and time: 02/27/2022 11:37 AM Age: 26 years old Clinical indication: Other: Tachycardia; Additional info: Tachycardia, chest pain TECHNIQUE: Imaging protocol: XR of the chest. Views: 1 view. COMPARISON: CR XR CHEST 2V 11/04/2021 10:17 AM FINDINGS: Lungs: Hypoinflation, without acute airspace disease. Pleural spaces: No pleural effusion. Heart/Mediastinum: Normal configuration of the heart. Bones/joints: Unremarkable. IMPRESSION: No acute airspace or pleural disease.
[2022-02-27 11:06] LABS: Basophils # 0.1 K/mm3 (0-0.2); Eosinophils # 0.2 K/mm3 (0.0-0.4); Eosinophils % 2.7 % (0.1-12.0); Hematocrit 42.2 % (37.0-47.0); Hemoglobin 14.4 g/dL (12.2-16.2); Lymphocytes # 2.2 K/mm3 (0.7-4.5); Lymphocytes % 40.5 % (10-50); Mean Corpuscular HGB Conc 34.1 g/dL (31.8-35.4); Mean Corpuscular Hemoglobin 30.2 pg (27.0-31.2); Mean Corpuscular Volume 88.6 fl (81-99); Mean Platelet Volume 8.2 fl (7.4-10.4); Monocytes # 0.3 K/mm3 (0.1-1.0); Monocytes % 6.1 % (1.7-9.3); Neutrophils # 2.7 K/mm3 (1.8-7.8); Neutrophils % 49.7 % (37.0-80.0); Platelet Count 314 K/mm3 (142-424); Red Blood Count 4.76 M/mm3 (4.20-5.40); Red Cell Distribution Width 13.5 % (11.5-17.5); White Blood Count 5.5 K/mm3 (4.8-10.8)
[2022-02-27 11:08] LABS: Chloride 108 mmol/L (98-107); Potassium 3.8 mmoL/L (3.5-5.1); Sodium 140 mmol/L (136-145)
[2022-02-27 11:11] LABS: Alanine Aminotransferase 27 U/L (12-78); Albumin/Globulin Ratio 1.4 (1.1-1.8); Alkaline Phosphatase 56 U/L (38-126); Anion Gap 11.8 mEq/L (5-15); Aspartate Amino Transferase 33 U/L (14-36); Bilirubin,Total 0.4 mg/dl (0.2-1.3); Blood Urea Nitrogen 9 mg/dl (7-17); Calcium 9.2 mg/dl (8.4-10.2); Carbon Dioxide 24 mmol/L (22.0-30.0); Creatinine Clearance Estimated 241 mL/min (50-200); Estimated Glomerular Filt Rate 122 ml/min (>60); GFR (African American) 147 ML/MIN (>60); Globulin 2.9 g/dL (1.3-3.2); Glucose 101 mg/dl (74-100); Total Protein,Serum 6.9 g/dl (6.3-8.2)
[2022-02-27 11:12] LABS: Magnesium 1.5 mg/dl (1.6-2.3)
[2022-02-27 11:27] LABS: Troponin I < 0.01 ng/ml (0.00-0.034)
== END 2022-02-27 13:43 | disposition home or self-care (01) ==
PROVIDERS: Emergency Provider Emergency Medicine; PCP Physician Assistant
DX: R07.9 Chest pain, unspecified (principal); R00.0 Tachycardia, unspecified; F41.8 Other specified anxiety disorders; E11.9 Type 2 diabetes mellitus without complications; Z79.899 Other long term (current) drug therapy
CPT/HCPCS: 71045; 80053; 83735; 84484; 85025; 93005; 99283

== ENCOUNTER → 2022-03-03 15:11 | Outpatient (CLI) | payer BC, SELFPAY ==
[2022-03-03 15:45] LABS: Basophils # 0.3 K/mm3 (0-0.2); Eosinophils # 0.1 K/mm3 (0.0-0.4); Eosinophils % 1.9 % (0.1-12.0); Hematocrit 42.4 % (37.0-47.0); Hemoglobin 13.9 g/dL (12.2-16.2); Lymphocytes # 2.5 K/mm3 (0.7-4.5); Lymphocytes % 38.5 % (10-50); Mean Corpuscular HGB Conc 32.7 g/dL (31.8-35.4); Mean Corpuscular Hemoglobin 29.5 pg (27.0-31.2); Mean Corpuscular Volume 90.2 fl (81-99); Mean Platelet Volume 7.9 fl (7.4-10.4); Monocytes # 0.4 K/mm3 (0.1-1.0); Monocytes % 6.1 % (1.7-9.3); Neutrophils # 3.5 K/mm3 (1.8-7.8); Neutrophils % 53.5 % (37.0-80.0); Platelet Count 286 K/mm3 (142-424); Red Cell Distribution Width 13.5 % (11.5-17.5); White Blood Count 6.4 K/mm3 (4.8-10.8)
[2022-03-03 16:23] LABS: Alanine Aminotransferase 30 U/L (12-78); Albumin Level 3.7 g/dl (3.5-5.0); Alkaline Phosphatase 59 U/L (38-126); Anion Gap 6.9 mEq/L (5-15); Aspartate Amino Transferase 33 U/L (14-36); Bilirubin,Indirect 0.2 mg/dL (0.0-0.9); Bilirubin,Total 0.2 mg/dl (0.2-1.3); Bilirubin,Unconjugated 0.5 mg/dL (0.0-1.1); Blood Urea Nitrogen 11 mg/dl (7-17); Calcium 8.8 mg/dl (8.4-10.2); Carbon Dioxide 31 mmol/L (22.0-30.0); Chloride 105 mmol/L (98-107); Chol/HDL Ratio 3.2 (1-3.5); Cholesterol 152 mg/dl (140-200); Estimated Glomerular Filt Rate 102 ml/min (>60); GFR (African American) 123 ML/MIN (>60); Glucose 73 mg/dl (74-100); HDL Cholesterol 48 mg/dl (40-60); Magnesium 1.7 mg/dl (1.6-2.3); Potassium 3.9 mmoL/L (3.5-5.1); Sodium 139 mmol/L (136-145); Total Protein,Serum 6.4 g/dl (6.3-8.2); Triglycerides 85 mg/dl (30-150); VLDL Cholesterol 17 mg/dL (0-40)
[2022-03-03 16:34] LABS: Direct LDL Cholesterol 71.87 mg/dL (100-129)
[2022-03-03 16:53] LABS: Thyroid Stimulating Hormone 0.68 uIU/mL (0.465-4.68)
== END ==
LOC: LAB 15:12
PROVIDERS: PCP Physician Assistant; Visit Provider Nurse Practitioner Family
DX: R07.9 Chest pain, unspecified (principal); R06.02 Shortness of breath; R00.0 Tachycardia, unspecified; R60.9 Edema, unspecified
CPT/HCPCS: 36415; 80048; 80061; 80076; 83735; 84439; 84443; 85025; 93270

== ENCOUNTER → 2022-03-17 12:52 | Outpatient (CLI) | payer BC, SELFPAY ==
--- NOTE | 2022-03-17 12:53 | CA_ITS ---
APPROVED REPORT EXAM: Comprehensive 2D, Doppler, and color-flow Echocardiogram Clinching Machine Operator: Jannie Solo, RT(R) Ht: 5 ft 10 in Wt: 236lbs BSA: 2.24 BP: 114/70 mmHg Indications: CP, palpitations, SOB, tachycardia. 2D Dimensions LVOT 2.11 cm (M/F) 1.5-2.5 M-Mode Dimensions RVDd 2.53 cm (0.9-2.6) LA Diam 3.01 cm (1.9-4.0) LVDd 4.81 cm (3.5-5.7) Ao Diam 3.16 cm (2.0-3.7) LVDs 3.59 cm (3.5-5.7) IVSd 0.53 cm (0.6-1.1) PWd 0.75 cm (0.6-1.1) EF (Teich) 49.90% FS 25.40% EDV (Teich) 108.00 mL ESV (Teich) 54.10 mL LV Diastology E Decel Time 163.00 (160-240 msec) E/A Ratio 2.0 MED E' 15.90 (< 7 cm/sec) E'/MED E' Ratio 6.05 (>14) LAT E' 17.30 (<10 cm/sec) E/LAT E' Ratio 5.56 (>14) Mitral Valve MV E Max Hemant. 96.00 (40-130 cm/s) MV A Velocity 49.00 (40-130 cm/s) E/A Ratio 1.97 MV Decel. Time 163.00 (160-240 ms) MV PHT 48.00 ms Tricuspid Valve TR P. Velocity 244.00 cm/s RAP Estimate 10.00 mmHg RVSP 33.80 mmHg Left Ventricle Left atrium is normal size, left ventricle is normal size, there is no concentric left ventricular hypertrophy, estimated ejection fraction 55% with no regional wall motion abnormality, diastolic parameters are within normal range. Right Ventricle Right atrium and right ventricle are normal size and contractility. Aortic Valve Aortic valve is grossly normal, there is no aortic stenosis or aortic insufficiency. Mitral Valve Mitral valve is grossly normal, there is trace mitral regurgitation. Tricuspid Valve Tricuspid grossly normal, there is trace tricuspid regurgitation, tricuspid regurgitation jet velocity is inadequate for calculation of the right ventricular systolic pressure. Pulmonic Valve Pulmonic valve is poorly visualized. Great Vessels Aortic root is normal size. Inferior vena cava is normal size with normal spectral collapse. Pericardium No significant pericardial effusion noted. Conclusion 1. Normal left ventricular size, preserved left ventricular systolic function, estimated ejection fraction 55% with no regional wall motion abnormality, diastolic parameters are within normal range. 2. Trace mitral and tricuspid regurgitation. 3. No significant pericardial effusion noted. 4. Inferior vena cava is normal size with normal inspiratory collapse. Electronically signed by : Naveed Ivory MD 03/18/2022 15:24:31
--- NOTE | 2022-03-17 12:58 | CT_ITS ---
FINAL REPORT TECHNIQUE: Then section axial CT images of the chest were obtained with contrast. Three-D reformatted images were also obtained.This study was performed with techniques to keep radiation doses as low as reasonably achievable (ALARA). Individualized dose reduction techniques using automated exposure control or adjustment of mA and/or kV according to the patient''s size were employed. CLINICAL HISTORY: cp/tachycardia, pt on medicine to lower heart rate but heart rate recently jumped higher than normal FINDINGS: There is no evidence of pulmonary embolism. There is no evidence of thoracic aortic aneurysm or dissection. There is no evidence of mediastinal or hilar mass or adenopathy. There is no evidence of pulmonary mass or suspicious nodule. No localized inflammatory process is seen within the lungs. Limited images of the upper abdomen are unremarkable. IMPRESSION: 1. No evidence of pulmonary embolism. 2. No mass or localized inflammatory process. Reviewed, Interpreted and Dictated by Brannon Braun III, MD Transcribed by Ike Ramsay Authenticated and [facility]
== END ==
LOC: RAD 12:53
PROVIDERS: PCP Physician Assistant; Visit Provider Physician Assistant
DX: R06.02 Shortness of breath (principal); R07.9 Chest pain, unspecified; R53.83 Other fatigue; R00.0 Tachycardia, unspecified; R60.9 Edema, unspecified
CPT/HCPCS: 71275; 93306; Q9967

== ENCOUNTER → 2023-02-14 11:17 | Outpatient (CLI) | payer BC, SELFPAY | PROVIDERS: PCP Student in an Organized Health Care Education/Training Program; Visit Provider Student in an Organized Health Care Education/Training Program | DX: N39.0 Urinary tract infection, site not specified (principal) | CPT/HCPCS: 87086 ==

== ENCOUNTER → 2023-03-02 10:01 | Outpatient (CLI) | payer BC, SELFPAY ==
--- NOTE | 2023-03-02 10:04 | XR_ITS ---
FINAL REPORT CLINICAL HISTORY: right flank pain COMPARISON: None FINDINGS: SINGLE VIEW ABDOMEN A single view of the abdomen was obtained. There is a nonobstructive bowel gas pattern. There are no abnormally dilated loops of small bowel. No abnormal calcifications are identified. IMPRESSION: Nonobstructive bowel gas pattern. Reviewed, Interpreted and Dictated by Antonio Araujo MD Transcribed by Lashell Bear Authenticated and [facility]
== END ==
PROVIDERS: PCP Family Medicine; Visit Provider Student in an Organized Health Care Education/Training Program
DX: R10.9 Unspecified abdominal pain (principal)
CPT/HCPCS: 74018

== ENCOUNTER 2023-05-11 22:57 | Emergency (ER) | payer BC, SELFPAY ==
[2023-05-11 22:58] VITALS: BP 126/78; PULSE 110; RESP 14; TEMP 36.5; O2SAT 99; BMI 36.0
[2023-05-11 23:03] VITALS: BP 126/78; PULSE 116; O2SAT 98
--- NOTE | 2023-05-11 23:28 | HMH.EDGENADL ---
Discharge Plan Disposition Patient Disposition: Xfer Other Condition: Fair Prescriptions Prescriptions: No Action levothyroxine 25 mcg capsule 25 mcg PO DAILY Wegovy 1.7 mg/0.75 mL pen injector 1.7 mg SQ WEEKLY Patient Comments: INJECT 1.7 MG SUBCUTANEOUSLY WEEKLY; ADMINISTER 13 THROUGH 16 WEEKS OF THERAPY metoprolol succinate [Toprol XL] 100 mg tablet extended release 24 hr 100 mg PO DAILY magnesium oxide 400 mg (241.3 mg magnesium) tablet 400 mg PO DAILY Patient Comments: TAKE 1 TABLET BY MOUTH ONCE DAILY Referrals Follow up/Referrals: Yakov Cuenca MD [Primary Care Provider] - See instructions Activity Restrictions/Add. Instructions Additional Instructions/Restrictions: Please proceed immediately to [facility] for urologic intervention. Clinical Impressions Clinical Impression: Urinary tract obstruction due to kidney stone, Pyelonephritis Instructions Patient Instructions: DI for Acute Abdominal Pain Discharge ED Provider: Janes Larkin General Adult HPI General Chief complaint: Abdominal Pain Stated complaint: back and abd pain Time Seen by Provider: 05/11/23 23:11 Mode of Arrival: Family Vehicle Source of Information: Patient Limitations: No Limitations Description of Symptoms (Recalled from ER Triage Doc. by RN): 27 yo female presents with CC of abrupt onset of right side flank pain that has now radiated around to her RUQ; pt states she has noticeds some spotting the past few days when she wipes. Denies fever. Feels nauseated but hasn't vomited. Has been on Ozempic and now Wegovy due to pharmacy availability for several weeks. States has a BM daily, and last one was this morning. PMH: ovarian cyst rupture with cyst removal, PCOS,Vit D deficiency, hypertension. Patient denies soa. denies chest pain. History of Present Illness HPI narrative: 27-year-old female history of PCOS, prior ovarian cyst rupture with removal, hypertension, hypothyroidism,, renal lithiasis, baseline tachycardia presents with right flank pain now radiating into the right groin. She reports this has been ongoing since this afternoon, has been worsening and prevented her from going to sleep. She reports chills but no fevers, denies any current urinary symptoms. Patient reports that she had some vaginal discharge about a week ago that improved after treatment for presumed yeast infection. No history of abdominal surgeries. No reported nausea or vomiting. Pain better with movement. Related Data Home Medications Medication Instructions Recorded Confirmed levothyroxine 25 mcg capsule 25 mcg PO DAILY thyroid 02/14/23 05/11/23 magnesium oxide 400 mg (241.3 mg 400 mg PO DAILY Supplement 05/11/23 05/11/23 magnesium) tablet metoprolol succinate 100 mg 100 mg PO DAILY htn 05/11/23 05/11/23 tablet,extended release 24 hr (Toprol XL) semaglutide (weight loss) 1.7 1.7 mg SQ WEEKLY Weight Loss 05/11/23 05/11/23 mg/0.75 mL subcutaneous pen injector (Wegovy) Allergies Allergy/AdvReac Type Severity Reaction Status Date / Time Sulfa (Sulfonamide Allergy Verified 02/14/23 11:28 Antibiotics) metformin AdvReac Intermediate diarrhea Verified 02/14/23 11:28 Penicillins AdvReac Verified 02/14/23 11:28 PFSH [facility] Disclaimer: The information contained in this section may have been updated after the patient was seen, as this information can be updated by other users. Medical History BMI 39.0-39.9,adult Chest pain Edema Palpitations PCOS (polycystic ovarian syndrome) Sinus tachycardia SOB (shortness of breath) Social History Smoking Status: Unknown if ever smoked second hand exposure: No alcohol intake: current substance use type: denies use current occupational status: employed Travel in the last 8 weeks: Inside the [place] household members: family housing: hous
[2023-05-11 23:29] LABS: Microscopic, Urine URINE MICROSCOPIC (MICROSCOPIC)
[2023-05-11 23:38] LABS: Appearance,Urine CLOUDY (Clear); Basophils # 0.1 K/mm3 (0-0.2); Basophils % 0.6 % (0.1-2.0); Bilirubin,Urine Negative (Negative); Blood, Urine 3+ (Negative); Color,Urine YELLOW (Yellow); Eosinophils # 0.1 K/mm3 (0.0-0.4); Eosinophils % 1.1 % (0.1-12.0); Glucose,Urine (UA) Negative (Negative); Hematocrit 41.4 % (37.0-47.0); Hemoglobin 13.6 g/dL (12.2-16.2); Ketones,Urine Negative (Negative); Leukocyte Esterase,Urine 2+ (Negative); Lymphocytes # 2.9 K/mm3 (0.7-4.5); Lymphocytes % 26.4 % (10-50); Mean Corpuscular HGB Conc 32.8 g/dL (31.8-35.4); Mean Corpuscular Hemoglobin 29.1 pg (27.0-31.2); Mean Corpuscular Volume 88.9 fl (81-99); Mean Platelet Volume 7.7 fl (7.4-10.4); Monocytes # 0.6 K/mm3 (0.1-1.0); Monocytes % 5.1 % (1.7-9.3); Neutrophils # 7.3 K/mm3 (1.8-7.8); Neutrophils % 66.8 % (37.0-80.0); Nitrate,Urine Negative (Negative); PH,Urine 5.5 (5.0-8.5); Platelet Count 246 K/mm3 (142-424); Protein,Urine TRACE (Negative); Red Blood Count 4.65 M/mm3 (4.20-5.40); Red Cell Distribution Width 13.3 % (11.5-17.5); Specific Gravity, Urine 1.025 (1.005-1.030); Urobilinogen,Urine 0.2 EU/dl (0.2); White Blood Count 10.9 K/mm3 (4.8-10.8)
[2023-05-11 23:44] LABS: Alanine Aminotransferase 34 U/L (12-78); Albumin Level 4.4 g/dl (3.5-5.0); Albumin/Globulin Ratio 1.4 (1.1-1.8); Alkaline Phosphatase 65 U/L (38-126); Anion Gap 12.9 mEq/L (5-15); Aspartate Amino Transferase 31 U/L (14-36); Bilirubin,Total 0.7 mg/dl (0.2-1.3); Blood Urea Nitrogen 16 mg/dl (7-17); Carbon Dioxide 25 mmol/L (22.0-30.0); Chloride 105 mmol/L (98-107); Creatinine Clearance Estimated 156 mL/min (50-200); Estimated Glomerular Filt Rate 76 ml/min (>60); GFR (African American) 92 ML/MIN (>60); Globulin 3.2 g/dL (1.3-3.2); Glucose 101 mg/dl (74-100); HCG Qualitative, Serum Negative (Negative); Potassium 3.9 mmoL/L (3.5-5.1); Sodium 139 mmol/L (136-145); Total Protein,Serum 7.6 g/dl (6.3-8.2)
[2023-05-11 23:57] LABS: Bacteria,Urine 2+ /lpf; RBC,Urine 20-50 #/hpf (0-3); WBC,Urine 20-50 #/hpf (0-3)
--- NOTE | 2023-05-12 | CT_ITS ---
PROCEDURE INFORMATION: Exam: CT Abdomen And Pelvis With Contrast Exam date and time: 05/12/2023 12:09 AM Age: 27 years old Clinical indication: Abdominal pain; Flank; Right; Prior surgery; Surgery date: 6+ months; Surgery type: Ovarian cyst removal; Additional info: Right flank/rlq pain TECHNIQUE: Imaging protocol: Computed tomography of the abdomen and pelvis with contrast. Radiation optimization: All CT scans at this facility use at least one of these dose optimization techniques: automated exposure control; mA and/or kV adjustment per patient size (includes targeted exams where dose is matched to clinical indication); or iterative reconstruction. Contrast material: ISOVUE; Contrast volume: 75 ml; Contrast route: IV; REPORTING DATA: Count of CT and Cardiac NM exams in prior 12 months: This patient has received 0 known CTs and 0 known cardiac nuclear medicine studies in the 12 months prior to the current study. COMPARISON: CR XR KUB 03/02/2023 10:05 AM FINDINGS: Liver: Normal. No mass. Gallbladder and bile ducts: Normal. No calcified stones. No ductal dilation. Pancreas: Normal. No ductal dilation. Spleen: Normal. No splenomegaly. Adrenal glands: Normal. No mass. Kidneys and ureters: There is severe right hydroureteronephrosis extending to a pair of 6 mm distal ureteral calculi (image 110 and image 115 series 3). There is an associated obstructive uropathy on the right. Stomach and bowel: Unremarkable. No obstruction. No mucosal thickening. Appendix: No evidence of appendicitis. Intraperitoneal space: Unremarkable. No free air. No significant fluid collection. Vasculature: Unremarkable. No abdominal aortic aneurysm. Lymph nodes: Unremarkable. No enlarged lymph nodes. Urinary bladder: Unremarkable as visualized. Reproductive: There is a 3 cm right ovarian dominant follicle. Bones/joints: Unremarkable. No acute fracture. Soft tissues: Unremarkable. IMPRESSION: There is severe right hydroureteronephrosis extending to a pair of 6 mm distal ureteral calculi (image 110 and image 115 series 3).
--- NOTE | 2023-05-12 00:30 | PC.NURSE ---
Call placed to [facility] on divert
--- NOTE | 2023-05-12 00:40 | PC.NURSE ---
Call to [facility] bed placement awaiting call back from hospitalist re: transfer
--- NOTE | 2023-05-12 01:12 | PC.NURSE ---
Called [facility] for possible transfer
--- NOTE | 2023-05-12 01:13 | PC.NURSE ---
pt has been accepted by [facility]. transfer center states will call back with bed assignment. pt updated on pending transfer
[2023-05-12 02:30] VITALS: PULSE 115; RESP 17; O2SAT 99
--- NOTE | 2023-05-12 02:46 | PC.NURSE ---
pt ambulated to bathroom
--- NOTE | 2023-05-12 02:52 | PC.NURSE ---
Pt provided with warm blanket and pillow. No other needs at this time. Pt continues to wait on bed assignment from [employer]
--- NOTE | 2023-05-12 03:22 | PC.NURSE ---
[facility] contacted, nothing available tonight
[2023-05-12 03:30] VITALS: PULSE 111; RESP 14; O2SAT 99
--- NOTE | 2023-05-12 04:48 | PC.NURSE ---
called phone number [phone] for [facility] as directed by manager data warehouse. Spoke with Melissa. Stated they had just received the patient on their board and it wasn't assigned to anyone yet . Gave 'melissa' our er number: [phone] to have a nurse return call for report exchange.
[2023-05-12 04:55] VITALS: BP 102/60; PULSE 126; RESP 19; TEMP 36.1; O2SAT 98
[2023-05-12 04:59] VITALS: BP 102/60; PULSE 121; RESP 17; TEMP 36.1; O2SAT 99
--- NOTE | 2023-05-12 05:32 | PC.NURSE ---
called back to [facility] to give report. patient reminded to remain NPO; IV left intact per physician request and wrapped per CHANTEL Farooq. Mom assumes responsibility for transfer and delivery
--- NOTE | 2023-05-12 06:57 | HMH.EDGENADL ---
Discharge Plan Disposition Patient Disposition: Xfer Other Condition: Fair Prescriptions Prescriptions: No Action levothyroxine 25 mcg capsule 25 mcg PO DAILY Wegovy 1.7 mg/0.75 mL pen injector 1.7 mg SQ WEEKLY Patient Comments: INJECT 1.7 MG SUBCUTANEOUSLY WEEKLY; ADMINISTER 13 THROUGH 16 WEEKS OF THERAPY metoprolol succinate [Toprol XL] 100 mg tablet extended release 24 hr 100 mg PO DAILY magnesium oxide 400 mg (241.3 mg magnesium) tablet 400 mg PO DAILY Patient Comments: TAKE 1 TABLET BY MOUTH ONCE DAILY Referrals Follow up/Referrals: Yakov Cuenca MD [Primary Care Provider] - See instructions Activity Restrictions/Add. Instructions Additional Instructions/Restrictions: Please proceed immediately to [facility] for urologic intervention. Clinical Impressions Clinical Impression: Urinary tract obstruction due to kidney stone, Pyelonephritis Stand Alone Forms Stand Alone Forms: Transfer Record - ED Instructions Patient Instructions: DI for Acute Abdominal Pain Discharge ED Provider: Janes Larkin General Adult HPI General Chief complaint: Abdominal Pain Stated complaint: back and abd pain Time Seen by Provider: 05/11/23 23:11 Mode of Arrival: Family Vehicle Source of Information: Patient Limitations: No Limitations Description of Symptoms (Recalled from ER Triage Doc. by RN): 27 yo female presents with CC of abrupt onset of right side flank pain that has now radiated around to her RUQ; pt states she has noticeds some spotting the past few days when she wipes. Denies fever. Feels nauseated but hasn't vomited. Has been on Ozempic and now Wegovy due to pharmacy availability for several weeks. States has a BM daily, and last one was this morning. PMH: ovarian cyst rupture with cyst removal, PCOS,Vit D deficiency, hypertension. Patient denies soa. denies chest pain. Related Data Home Medications Medication Instructions Recorded Confirmed levothyroxine 25 mcg capsule 25 mcg PO DAILY thyroid 02/14/23 05/11/23 magnesium oxide 400 mg (241.3 mg 400 mg PO DAILY Supplement 05/11/23 05/11/23 magnesium) tablet metoprolol succinate 100 mg 100 mg PO DAILY htn 05/11/23 05/11/23 tablet,extended release 24 hr (Toprol XL) semaglutide (weight loss) 1.7 1.7 mg SQ WEEKLY Weight Loss 08/10/23 08/10/23 mg/0.75 mL subcutaneous pen injector (Tomeka) Allergies Allergy/AdvReac Type Severity Reaction Status Date / Time Sulfa (Sulfonamide Allergy Verified 02/14/23 11:28 Antibiotics) metformin AdvReac Intermediate diarrhea Verified 02/14/23 11:28 Penicillins AdvReac Verified 02/14/23 11:28 [facility] Disclaimer: The information contained in this section may have been updated after the patient was seen, as this information can be updated by other users. Medical History BMI 39.0-39.9,adult Chest pain Edema Palpitations PCOS (polycystic ovarian syndrome) Sinus tachycardia SOB (shortness of breath) Social History Smoking Status: Unknown if ever smoked second hand exposure: No alcohol intake: current substance use type: denies use current occupational status: employed Travel in the last 8 weeks: [place] the [place] household members: family housing: house current occupational exposures/hazards: No caffeine: Yes Physical Exam General General appearance: alert and in no apparent distress Head Head exam: atraumatic, normocephalic and normal inspection Eye Eye exam: Present normal appearance, PERRL and EOMI ENT ENT exam: Present normal exam, normal oropharynx, mucous membranes moist, TM's normal bilaterally and normal external ear exam Neck Neck exam: Present normal inspection, full ROM and trachea midline; Absent meningismus or lymphadenopathy Chest Chest inspection: Present normal inspection and symmetric chest wall rise; Absent tende
--- NOTE | 2023-05-12 20:15 | PC.NURSE ---
Received call from lab for prelim + results of blood cultures. Patient lab results faxed to [phone] at [facility].
== END 2023-05-12 05:36 | disposition other institution (70) ==
PROVIDERS: Emergency Provider Emergency Medicine; PCP Family Medicine
DX: N13.2 Hydronephrosis with renal and ureteral calculous obstruction (principal); N12 Tubulo-interstitial nephritis, not specified as acute or chronic; I10 Essential (primary) hypertension; E03.9 Hypothyroidism, unspecified; E28.2 Polycystic ovarian syndrome
CPT/HCPCS: 74177; 80053; 81001; 84703; 85025; 87040; 87077; 87086; 87088; 87186; 96361; 96365; 96375; 99291; J0696; J2405; Q9967

== ENCOUNTER 2023-05-18 16:36 | Emergency (ER) | payer BC, SELFPAY ==
[2023-05-18 16:37] VITALS: BP 108/73; PULSE 85; RESP 14; TEMP 36.6; O2SAT 97; BMI 34.0
--- NOTE | 2023-05-18 17:02 | HMH.EDGENADL ---
Discharge Plan Disposition Patient Disposition: Home, Self-Care Condition: Good Prescriptions Prescriptions: New ceftriaxone 2 gram recon soln 2 g IV DAILY 6 Days No Action levothyroxine 25 mcg capsule 25 mcg PO DAILY Wegovy 1.7 mg/0.75 mL pen injector 1.7 mg SQ WEEKLY Patient Comments: INJECT 1.7 MG SUBCUTANEOUSLY WEEKLY; ADMINISTER 13 THROUGH 16 WEEKS OF THERAPY metoprolol succinate [Toprol XL] 100 mg tablet extended release 24 hr 100 mg PO DAILY magnesium oxide 400 mg (241.3 mg magnesium) tablet 400 mg PO DAILY Patient Comments: TAKE 1 TABLET BY MOUTH ONCE DAILY Referrals Follow up/Referrals: Guadalupe Watson PA [Primary Care Provider] - See instructions Activity Restrictions/Add. Instructions Additional Instructions/Restrictions: We are going to arrange for IV infusions of ceftriaxone for the next 6 days. I am going to call and talk to the urologist at [place], I will let you know the results of that discussion. Clinical Impressions Clinical Impression: Positive blood cultures, Urinary tract obstruction due to kidney stone Instructions Patient Instructions: Urinary Tract Infection Discharge ED Provider: Janes Larkin General Adult HPI General Chief complaint: Recheck/Abnormal Lab/Rx Stated complaint: called in for IV antibiotics Time Seen by Provider: 05/18/23 16:40 History of Present Illness HPI narrative: 27-year-old female presents for positive blood cultures. Patient was seen here 1 week ago with obstructing kidney stone and evidence of infection. Patient was given IV antibiotics at that time and transferred to [facility] for urologic intervention. She received 3 days of IV antibiotics there and had improvement in labs and symptoms and so was discharged without intervention. She was discharged with 3 days of Levaquin, finishing on 05/13. Patient had blood cultures and urine cultures drawn here at [facility] at the time of her ED visit on 05/12. Her blood and urine cultures resulted positive for group B strep. It is unclear whether those results were ever sent to [facility]. Patient reports that she is unaware that she had bacteremia. I noted the positive results when I returned to work on 05/18. I called her and explained the situation and recommended that she come back in for repeat blood cultures and IV antibiotics. Patient reports that she has had mild back pain but overall improvement in symptoms. No fevers chills or other systemic symptoms. No urinary symptoms. Related Data Home Medications Medication Instructions Recorded Confirmed levothyroxine 25 mcg capsule 25 mcg PO DAILY thyroid 02/14/23 05/11/23 magnesium oxide 400 mg (241.3 mg 400 mg PO DAILY Supplement 05/11/23 05/11/23 magnesium) tablet metoprolol succinate 100 mg 100 mg PO DAILY htn 05/11/23 05/11/23 tablet,extended release 24 hr (Toprol XL) semaglutide (weight loss) 1.7 1.7 mg SQ WEEKLY Weight Loss 05/11/23 05/11/23 mg/0.75 mL subcutaneous pen injector (Heliovsylvia) Previous Rx's Medication Instructions Recorded ceftriaxone 2 gram solution for 2 g IV DAILY 6 days 05/18/23 injection Allergies Allergy/AdvReac Type Severity Reaction Status Date / Time Sulfa (Sulfonamide Allergy Verified 02/14/23 11:28 Antibiotics) metformin AdvReac Intermediate diarrhea Verified 02/14/23 11:28 Penicillins AdvReac Ver[facility]14[facility]23 [facility]28 [facility] Dis[facility]: The information contained in this section may have been updated after the patient was seen, as this information can be updated by other users. Medical History BMI 39.0-39.9,adult Chest pain Edema Palpitations PCOS (polycystic ovarian syndrome) Sinus tachycardia SOB (shortness of breath) Social History Smoking Status: Never smoker second hand exposure: No alcohol intake: current substance use
[2023-05-18 17:07] LABS: Microscopic, Urine URINE MICROSCOPIC (MICROSCOPIC)
[2023-05-18 17:11] VITALS: BMI 39.4
--- NOTE | 2023-05-18 17:17 | PC.NURSE ---
Rounded on patient; nothing needed at this time.
--- NOTE | 2023-05-18 17:21 | PC.NURSE ---
Placed call to [facility] for urologist consult
--- NOTE | 2023-05-18 17:40 | PC.NURSE ---
Dr Larkin speaking to Dr Roman [facility]
[2023-05-18 17:48] LABS: Basophils % 0.8 % (0.1-2.0); Eosinophils # 0.2 K/mm3 (0.0-0.4); Eosinophils % 2.9 % (0.1-12.0); Hematocrit 36.8 % (37.0-47.0); Hemoglobin 12.1 g/dL (12.2-16.2); Lymphocytes # 2.4 K/mm3 (0.7-4.5); Lymphocytes % 43.4 % (10-50); Mean Corpuscular HGB Conc 32.9 g/dL (31.8-35.4); Mean Corpuscular Volume 88.2 fl (81-99); Mean Platelet Volume 7.4 fl (7.4-10.4); Monocytes # 0.4 K/mm3 (0.1-1.0); Monocytes % 6.8 % (1.7-9.3); Neutrophils # 2.5 K/mm3 (1.8-7.8); Neutrophils % 46.1 % (37.0-80.0); Platelet Count 359 K/mm3 (142-424); Red Blood Count 4.17 M/mm3 (4.20-5.40); White Blood Count 5.4 K/mm3 (4.8-10.8)
[2023-05-18 17:49] VITALS: BP 109/76; PULSE 85; RESP 16; TEMP 36.6; O2SAT 100
[2023-05-18 17:57] LABS: Alanine Aminotransferase 58 U/L (12-78); Albumin Level 4.1 g/dl (3.5-5.0); Albumin/Globulin Ratio 1.2 (1.1-1.8); Alkaline Phosphatase 66 U/L (38-126); Aspartate Amino Transferase 43 U/L (14-36); Bilirubin,Total 0.3 mg/dl (0.2-1.3); Blood Urea Nitrogen 10 mg/dl (7-17); Carbon Dioxide 29 mmol/L (22.0-30.0); Chloride 102 mmol/L (98-107); Creatinine Clearance Estimated 201 mL/min (50-200); Estimated Glomerular Filt Rate 101 ml/min (>60); GFR (African American) 122 ML/MIN (>60); Globulin 3.3 g/dL (1.3-3.2); Glucose 83 mg/dl (74-100); Sodium 141 mmol/L (136-145); Total Protein,Serum 7.4 g/dl (6.3-8.2)
[2023-05-18 18:03] LABS: Appearance,Urine CLEAR (Clear); Bilirubin,Urine Negative (Negative); Blood, Urine 1+ (Negative); Color,Urine YELLOW (Yellow); Glucose,Urine (UA) Negative (Negative); Ketones,Urine Negative (Negative); Leukocyte Esterase,Urine Negative (Negative); Nitrate,Urine Negative (Negative); Protein,Urine Negative (Negative); Specific Gravity, Urine <= 1.005 (1.005-1.030); Urobilinogen,Urine 0.2 EU/dl (0.2)
[2023-05-18 18:19] LABS: Squamous Epithelial Cell,Urine Occasional #/hpf (0-5)
== END 2023-05-18 17:49 | disposition home or self-care (01) ==
PROVIDERS: Emergency Provider Emergency Medicine; PCP Physician Assistant
DX: N39.0 Urinary tract infection, site not specified (principal); N13.2 Hydronephrosis with renal and ureteral calculous obstruction
CPT/HCPCS: 80053; 81001; 85025; 87040; 96365; 99285; J0696

== ENCOUNTER 2023-05-19 15:02 | Outpatient (CLI) | payer BC, SELFPAY ==
[2023-05-19 15:25] VITALS: BP 112/73; PULSE 79; RESP 18; O2SAT 99
[2023-05-19 15:54] VITALS: BP 117/76; PULSE 78; RESP 18; O2SAT 99
== END 2023-05-19 15:54 | disposition home or self-care (01) ==
LOC: INF 15:02
PROVIDERS: PCP Physician Assistant; Visit Provider Emergency Medicine
DX: R78.81 Bacteremia (principal)
CPT/HCPCS: 96365; J0696

== ENCOUNTER 2023-05-20 10:41 | Outpatient (CLI) | payer BC, SELFPAY ==
[2023-05-20 10:45] VITALS: BP 103/70; PULSE 89; RESP 16; TEMP 36.7; O2SAT 98; BMI 34.2
[2023-05-20 11:44] VITALS: BP 103/59; PULSE 81; RESP 16; TEMP 36.7; O2SAT 98
== END 2023-05-20 11:44 | disposition home or self-care (01) ==
LOC: INF 10:42
PROVIDERS: PCP Physician Assistant; Visit Provider Emergency Medicine
DX: R78.81 Bacteremia (principal)
CPT/HCPCS: 96365; G0463; J0696

== ENCOUNTER 2023-05-21 10:32 | Outpatient (CLI) | payer BC, SELFPAY ==
[2023-05-21 10:32] VITALS: BP 106/73; PULSE 79; RESP 14; TEMP 36.6; O2SAT 98
[2023-05-21 12:10] VITALS: BP 119/71; PULSE 73; RESP 14; TEMP 36.5; O2SAT 98
== END 2023-05-21 12:10 | disposition home or self-care (01) ==
LOC: INF 10:32
PROVIDERS: PCP Physician Assistant; Visit Provider Emergency Medicine
DX: R78.81 Bacteremia (principal)
CPT/HCPCS: 96365; G0463; J0696

== ENCOUNTER 2023-05-22 15:25 | Outpatient (CLI) | payer BC, SELFPAY ==
[2023-05-22 15:45] VITALS: BP 111/67; PULSE 76; RESP 18; TEMP 36.6; O2SAT 98
[2023-05-22 16:25] VITALS: BP 112/70; PULSE 85; RESP 18; O2SAT 98
== END 2023-05-22 16:34 | disposition home or self-care (01) ==
LOC: INF 15:25
PROVIDERS: PCP Physician Assistant; Visit Provider Emergency Medicine
DX: R78.81 Bacteremia (principal)
CPT/HCPCS: 96365; J0696

== ENCOUNTER 2023-05-23 15:22 | Outpatient (CLI) | payer BC, SELFPAY ==
[2023-05-23 15:35] VITALS: BP 121/66; PULSE 74; RESP 18; TEMP 36.4; O2SAT 99
[2023-05-23 16:12] VITALS: BP 126/71; PULSE 87; RESP 18; O2SAT 99
== END 2023-05-23 16:12 | disposition home or self-care (01) ==
LOC: INF 15:22
PROVIDERS: PCP Physician Assistant; Visit Provider Emergency Medicine
DX: R78.81 Bacteremia (principal)
CPT/HCPCS: 96365; J0696

== ENCOUNTER 2023-05-24 15:28 | Outpatient (CLI) | payer BC, SELFPAY ==
[2023-05-24 15:51] VITALS: BP 119/69; PULSE 92; RESP 18; TEMP 36.7; O2SAT 97
[2023-05-24 16:29] VITALS: BP 119/70; PULSE 90; RESP 18; O2SAT 99
== END 2023-05-24 16:30 | disposition home or self-care (01) ==
LOC: INF 15:28
PROVIDERS: PCP Physician Assistant; Visit Provider Emergency Medicine
DX: R78.81 Bacteremia (principal)
CPT/HCPCS: 96365; J0696

== ENCOUNTER → 2023-06-08 09:23 | Outpatient (CLI) | payer BC, SELFPAY ==
[2023-06-08 09:53] LABS: Basophils % 0.5 % (0.1-2.0); Eosinophils # 0.1 K/mm3 (0.0-0.4); Eosinophils % 1.8 % (0.1-12.0); Hematocrit 41.3 % (37.0-47.0); Hemoglobin 13.7 g/dL (12.2-16.2); Lymphocytes # 1.8 K/mm3 (0.7-4.5); Lymphocytes % 31.3 % (10-50); Mean Corpuscular HGB Conc 33.1 g/dL (31.8-35.4); Mean Corpuscular Hemoglobin 29.2 pg (27.0-31.2); Mean Corpuscular Volume 88.2 fl (81-99); Mean Platelet Volume 7.8 fl (7.4-10.4); Monocytes # 0.3 K/mm3 (0.1-1.0); Monocytes % 5.7 % (1.7-9.3); Neutrophils # 3.5 K/mm3 (1.8-7.8); Neutrophils % 60.8 % (37.0-80.0); Platelet Count 256 K/mm3 (142-424); Red Blood Count 4.68 M/mm3 (4.20-5.40); Red Cell Distribution Width 13.6 % (11.5-17.5); White Blood Count 5.8 K/mm3 (4.8-10.8)
[2023-06-08 10:11] LABS: Alanine Aminotransferase 39 U/L (12-78); Albumin Level 4.3 g/dl (3.5-5.0); Alkaline Phosphatase 60 U/L (38-126); Anion Gap 13.2 mEq/L (5-15); Aspartate Amino Transferase 34 U/L (14-36); Bilirubin,Direct 0.1 mg/dl (0.0-0.4); Bilirubin,Indirect 0.3 mg/dL (0.0-0.9); Bilirubin,Total 0.4 mg/dl (0.2-1.3); Bilirubin,Unconjugated 0.4 mg/dL (0.0-1.1); Blood Urea Nitrogen 13 mg/dl (7-17); Calcium 9.1 mg/dl (8.4-10.2); Carbon Dioxide 26 mmol/L (22.0-30.0); Chloride 105 mmol/L (98-107); Chol/HDL Ratio 2.5 (1-3.5); Cholesterol 158 mg/dl (140-200); Estimated Glomerular Filt Rate 120 ml/min (>60); GFR (African American) 145 ML/MIN (>60); Glucose 95 mg/dl (74-100); HDL Cholesterol 62 mg/dl (40-60); Potassium 4.2 mmoL/L (3.5-5.1); Sodium 140 mmol/L (136-145); Total Protein,Serum 7.4 g/dl (6.3-8.2); Triglycerides 57 mg/dl (30-150); VLDL Cholesterol 11 mg/dL (0-40)
[2023-06-08 10:22] LABS: Direct LDL Cholesterol 79.75 mg/dL (100-129)
[2023-06-08 10:26] LABS: Free T4 (Free Thyroxine) 1.01 ng/dl (0.78-2.19)
[2023-06-08 10:41] LABS: Thyroid Stimulating Hormone 0.26 uIU/mL (0.465-4.68)
== END ==
PROVIDERS: PCP Physician Assistant; Visit Provider Physician Assistant
DX: R00.2 Palpitations (principal); E28.2 Polycystic ovarian syndrome; E11.9 Type 2 diabetes mellitus without complications; R07.89 Other chest pain; R06.00 Dyspnea, unspecified; I63.9 Cerebral infarction, unspecified; I11.9 Hypertensive heart disease without heart failure; Z98.890 Other specified postprocedural states; Z79.899 Other long term (current) drug therapy
CPT/HCPCS: 36415; 80048; 80061; 80076; 84439; 84443; 85025; 93270

== ENCOUNTER → 2023-06-22 23:18 | Outpatient (CLI) | payer BC, SELFPAY | LOC: LAB.DROPOF 23:18 | PROVIDERS: PCP Physician Assistant; Visit Provider Student in an Organized Health Care Education/Training Program | DX: J02.9 Acute pharyngitis, unspecified (principal); M54.9 Dorsalgia, unspecified; B95.7 Other staphylococcus as the cause of diseases classified elsewhere | CPT/HCPCS: 87070; 87077; 87086; 87186 ==

== ENCOUNTER 2023-06-28 07:11 | Outpatient (CLI) | payer BC, SELFPAY ==
[2023-06-28] VITALS (15 sets, daily range): BP systolic 96–125; BP diastolic 45–73; PULSE 80–101; RESP 18; TEMP 36.2; O2SAT 95–100; BMI 34.0
--- NOTE | 2023-06-28 07:11 | CA_ITS ---
APPROVED REPORT EXAM: Comprehensive 2D, Doppler, and color-flow Echocardiogram Reading Recovery Teacher: Elizabeth Hull RVT Ht: 5 ft 9 in Wt: 229lbs BSA: 2.19 BP: 114/59 mmHg Indications: CP,PALPS,TACHYCARDIA 2D Dimensions LVOT 2.33 cm (M/F) 1.5-2.5 LA Volume 44.60 mL LA Volume Index 20.37 mL/m2 (M/F) 16-34 M-Mode Dimensions RVDd 2.72 cm (0.9-2.6) LA Diam 3.48 cm (1.9-4.0) LVDd 4.76 cm (3.5-5.7) Ao Diam 3.13 cm (2.0-3.7) LVDs 3.22 cm (3.5-5.7) IVSd 0.82 cm (0.6-1.1) PWd 0.57 cm (0.6-1.1) EF (Teich) 60.50% FS 32.40% EDV (Teich) 105.40 mL TAPSE 2.04 (<1.7) ESV (Teich) 41.60 mL LV Diastology E Decel Time 200.00 (160-240 msec) E/A Ratio 1.1 MED E' 10.50 (< 7 cm/sec) E'/MED E' Ratio 6.87 (>14) LAT E' 17.10 (<10 cm/sec) E/LAT E' Ratio 4.22 (>14) Aortic Valve AO Peak GR. 5.00 mmHg Mitral Valve MV E Max Hemant. 72.00 (40-130 cm/s) MV A Velocity 64.00 (40-130 cm/s) E/A Ratio 1.12 MV Decel. Time 200.00 (160-240 ms) MV PHT 59.00 ms Pulmonary Valve PV Peak Velocity 98.00 (50-150 cm/s) Tricuspid Valve TR P. Velocity 238.00 cm/s RAP Estimate 10.00 mmHg RVSP 32.70 mmHg Left Ventricle The left ventricle is normal size. The left ventricular systolic function is normal. The left ventricular ejection fraction is within the normal range. There is normal left ventricular wall thickness. There is normal LV segmental wall motion. The left ventricular diastolic function is normal. LVEF is 55%. Right Ventricle The right ventricle is normal size. The right ventricular systolic function is normal. Atria The left atrium size is normal. The right atrium size is normal. There is no Doppler evidence of interatrial shunt. Aortic Valve The aortic valve opens well. There is no aortic valvular stenosis. No aortic regurgitation is present. Mitral Valve The mitral valve is normal in structure. No evidence of mitral valve stenosis. Mild mitral regurgitation. Tricuspid Valve The tricuspid valve leaflets are thin and pliable. Mild tricuspid regurgitation. RVSP is 15-20 mmHg. Pulmonic Valve The pulmonary valve is normal in structure. Mild pulmonic regurgitation. Great Vessels The aortic root is normal in size. The ascending aorta is normal in size. IVC is normal in size and collapses >50% with inspiration. Pericardium There is no pericardial effusion. Ascites is incidentally noted. Other Information Study Quality: Fair Conclusion Normal biventricular systolic function. Mild MR, TR, and PI. Ascites is incidentally noted. Electronically signed by : Salina Carcamo MD 07/01/2023 19:38:33
--- NOTE | 2023-06-28 07:11 | CT_ITS ---
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 A noncontrast coronary calcium scan was performed. Bolus tracking in the ascending aorta with a threshold of 180 HU was performed. Immediately afterwards, ECG synchronized cardiac CT was then performed from the cardiac base to apex using retrospective gating with ECG tube current modulation. A total of 85 mL of Isovue 370 mg/mL contrast medium was administered at 5 mL/sec followed by a saline flush using a biphasic injection protocol. A tube voltage of 120 KVp was used. The patient received the following medications prior to the cardiac CT. 100 mg of oral metoprolol 20 mg of intravenous metoprolol. No sublingual nitroglycerin was administered. The average heart rate at the time of acquisition was 71 bpm and regular. Image Reconstruction Transaxial images were reconstructed at 0.67 mm slide thickness. Data was reviewed interactively on an advanced workstation capable of 2 and 3-dimensional displays in all conventional reconstruction formats, including multiplanar reformations, maximum intensity projections, curved multiplanar reformations, and volume rendered reconstructions. When applicable, selected routine images describing the relevant coronary anatomy and pathology were saved and sent to PACS. Complications None Technical Quality Overall image quality was good. Coronary artery opacification was adequate. Total DLP (Dose-Length Product) is 2238 mGy-cm. The reported value represents the total of one or more individual components during the CT acquisition of this date and at this time, and as such, the same value may appear in more than one CT report depending on the interpreting/reporting physicians. COMPARISON None FINDINGS CT Coronary Calcium Scoring LMA (Left Main Artery) = 0 LAD (Left Anterior Descending) = 0 LCX (Left Coronary Circumflex) = 0 RCA (Right Coronary Artery) = 0 Total Calcium Score = 0 using the AJ-130 method. The interpretation of the calcium heart score is based on the following continuum*: 0 = no calcified plaque detected (risk of coronary artery disease is very low ??? less than 5%) 1-10 = calcium detected in extremely minimal levels (risk of coronary diseases is still low ??? less than 10%) 11-100 = mild levels of plaque detected with certainty (minimal narrowing of heart arteries is likely) 101-300 = moderate levels of plaque detected (relatively high risk of a heart attack within 3-5 years) 300-400 = extensive levels of plaque detected (very high risk of heart attack, high levels of vascular disease are present) *The calcium heart score quantifies the burden of coronary calcification/plaque in the coronary arteries. The calcium heart score is not able to evaluate the presence or burden of non-calcified (i.e. soft) plaque. According to The Multi-Ethnic Study of Atherosclerosis (MURRELL) Coronary Artery Calcium (CAC) risk, the estimated probability of a non-zero calcium score for an individual of your ethnicity and age is ____. The observed calcium score of ___ is at ___ percentile for subjects of the same age, sex, and race/ethnicity who are free of clinical cardiovascular disease and treated diabetes. There is no identifiable calcification in the aortic valve, mitral annulus or mitral valve, pericardium, or myocardium. Coronary CT Angiography Coronaries have normal origin and proximal course. The coronary arterial system is right dominant. Note: Stenosis is reported as maximum percentage diameter stenosis. Stenosis grading is reported using the following scheme: Quantitative Stenosis Grading: Left Main (LM): The left main orig
--- NOTE | 2023-06-28 07:11 | CT_ITS ---
FINAL REPORT TECHNIQUE: Axial imaging of the chest is obtained after the administration of contrast. 3-D MIP reformatted images were also obtained and reviewed per PE protocol. CLINICAL HISTORY: palpitations, chest pain COMPARISON: March 17, 2022 FINDINGS: The pulmonary arteries are well filled. There is no evidence of pulmonary embolus. There is no aortic dissection or intimal flap. There is no mediastinal, hilar, or axillary lymphadenopathy. There is a calcified lingular nodule. The lungs are otherwise clear. There is no pleural or pericardial effusion. Limited evaluation of the upper abdomen demonstrates fatty infiltration of the liver. No acute osseous abnormality. IMPRESSION: No evidence of pulmonary embolism or aortic dissection. Reviewed, Interpreted and Dictated by Sherita Wang MD Transcribed by Ike Ramsay Authenticated and [facility]
[2023-06-28 07:38] LABS: Urine Pregnancy, HCG Qual. Negative (Negative)
--- NOTE | 2023-06-28 10:10 | PC.NURSE ---
Pt arrived to post-op via W/C, no C/O at this time, VSS.
--- NOTE | 2023-06-28 11:15 | PC.NURSE ---
VSS, PT WITHOUT C/O AT THIS TIME. PT DISCHARGED AND ESCORTED OUT TO LOBBY.
--- NOTE | 2023-06-28 11:43 | PC.NURSE ---
0900- Spoke w/ Dr. Carcamo, notified him that per Pharmacy we do not carry Ivabradine. Also notified that subsequent systolic BP readings have been between 100 and 110. Determined to continue with Metoprolol as directed as long as systolic BP remains above 100.
== END 2023-06-28 11:15 | disposition home or self-care (01) ==
LOC: RAD 07:11
PROVIDERS: PCP Physician Assistant; Visit Provider Physician Assistant
DX: R07.89 Other chest pain (principal); R00.2 Palpitations; E11.9 Type 2 diabetes mellitus without complications; E28.2 Polycystic ovarian syndrome; Z98.890 Other specified postprocedural states
CPT/HCPCS: 71275; 75574; 81025; 93306; Q9967

== ENCOUNTER → 2023-07-26 08:02 | Outpatient (CLI) | payer BC, SELFPAY ==
--- NOTE | 2023-07-26 08:03 | US_ITS ---
FINAL REPORT CLINICAL HISTORY: ascites, s/p surgery COMPARISON: None FINDINGS: Sonographic images of the right upper quadrant were obtained. The pancreas is partially obscured. There is increased echogenicity in the liver compatible with fatty infiltration of the liver. The gallbladder appears normal without evidence of gallstones.There is no evidence of biliary ductal dilatation.The common duct measures 2 mm. Limited images of the right kidney are unremarkable. No evidence of ascites is seen. IMPRESSION: Fatty infiltration of the liver. Reviewed, Interpreted and Dictated by Brannon Braun III, MD Transcribed by Lashell Bear Authenticated and [facility]
== END ==
PROVIDERS: PCP Physician Assistant; Visit Provider Internal Medicine
DX: R18.8 Other ascites (principal); Z98.890 Other specified postprocedural states
CPT/HCPCS: 76700

== ENCOUNTER → 2023-08-31 09:08 | Outpatient (CLI) | payer BC, SELFPAY | PROVIDERS: PCP Student in an Organized Health Care Education/Training Program; Visit Provider Student in an Organized Health Care Education/Training Program | DX: N39.0 Urinary tract infection, site not specified (principal); B96.89 Other specified bacterial agents as the cause of diseases classified elsewhere | CPT/HCPCS: 87086 ==

== ENCOUNTER 2023-10-28 21:53 | Emergency (ER) | payer BC, SELFPAY ==
[2023-10-28 21:53] VITALS: BP 126/88; PULSE 80; RESP 18; TEMP 36.7; O2SAT 96; BMI 33.6
--- NOTE | 2023-10-28 21:59 | ECG_ITS ---
APPROVED REPORT Exam: Resting ECG HR:91 bpm ECG Measurements Heart Rate 91 AXES NC 164 P 50 QRSd 88 QRS 18 QT 350 T 44 QTc 399 Conclusion SINUS RHYTHM WITH SINUS ARRHYTHMIA NORMAL ECG UNCONFIRMED REPORT Electronically signed by : Lauri Carl MD 10/31/2023 16:48:23
--- NOTE | 2023-10-28 22:18 | XR_ITS ---
PROCEDURE INFORMATION: Exam: XR Chest Exam date and time: 10/28/2023 11:04 PM Age: 28 years old Clinical indication: Pain; Chest pressure; Additional info: Cp TECHNIQUE: Imaging protocol: Radiologic exam of the chest. Views: 1 view. COMPARISON: CT ANGIO CHEST PE PROTOCOL 06/28/2023 9:49 AM FINDINGS: Lungs: Normal. Pleural spaces: Normal No pleural effusion. No pneumothorax. Heart/Mediastinum: Normal. No cardiomegaly. Bones/joints: Unremarkable. IMPRESSION: No acute findings.
[2023-10-28 22:25] LABS: Basophils # 0.1 K/mm3 (0-0.2); Eosinophils # 0.1 K/mm3 (0.0-0.4); Eosinophils % 1.4 % (0.1-12.0); Hematocrit 41.2 % (37.0-47.0); Hemoglobin 14.7 g/dL (12.2-16.2); Lymphocytes # 2.4 K/mm3 (0.7-4.5); Lymphocytes % 33.4 % (10-50); Mean Corpuscular HGB Conc 35.7 g/dL (31.8-35.4); Mean Corpuscular Hemoglobin 30.8 pg (27.0-31.2); Mean Corpuscular Volume 86.4 fl (81-99); Mean Platelet Volume 7.7 fl (7.4-10.4); Monocytes # 0.4 K/mm3 (0.1-1.0); Monocytes % 5.3 % (1.7-9.3); Neutrophils # 4.2 K/mm3 (1.8-7.8); Neutrophils % 58.9 % (37.0-80.0); Platelet Count 277 K/mm3 (142-424); Red Blood Count 4.77 M/mm3 (4.20-5.40); Red Cell Distribution Width 13.2 % (11.5-17.5); White Blood Count 7.1 K/mm3 (4.8-10.8)
[2023-10-28 22:27] LABS: Chloride 101 mmol/L (98-107); Potassium 3.6 mmoL/L (3.5-5.1); Sodium 139 mmol/L (136-145)
[2023-10-28 22:30] VITALS: BP 110/72; PULSE 80; RESP 14; O2SAT 97
[2023-10-28 22:30] LABS: Alanine Aminotransferase 72 U/L (12-78); Albumin Level 4.7 g/dl (3.5-5.0); Albumin/Globulin Ratio 1.4 (1.1-1.8); Alkaline Phosphatase 64 U/L (38-126); Anion Gap 11.6 mEq/L (5-15); Aspartate Amino Transferase 64 U/L (14-36); Bilirubin,Total 0.6 mg/dl (0.2-1.3); Blood Urea Nitrogen 13 mg/dl (7-17); Carbon Dioxide 30 mmol/L (22.0-30.0); Creatinine Clearance Estimated 197 mL/min (50-200); Estimated Glomerular Filt Rate 100 ml/min (>60); GFR (African American) 121 ML/MIN (>60); Globulin 3.4 g/dL (1.3-3.2); Total Protein,Serum 8.1 g/dl (6.3-8.2)
[2023-10-28 22:31] LABS: Calcium 9.2 mg/dl (8.4-10.2); Glucose 98 mg/dl (74-100)
[2023-10-28 22:43] LABS: Troponin I < 0.01 ng/ml (0.00-0.034)
[2023-10-28 23:00] VITALS: BP 112/85; PULSE 88; RESP 13; O2SAT 97
--- NOTE | 2023-10-28 23:16 | HMH.EDGENADL ---
Discharge Plan Disposition Patient Disposition: Home, Self-Care Prescriptions Prescriptions: No Action magnesium oxide 400 mg (241.3 mg magnesium) tablet PO Patient Comments: TAKE 1 TABLET BY MOUTH ONCE DAILY levothyroxine 25 mcg capsule 12.5 mcg PO DAILY phenazopyridine [Pyridium] 100 mg tablet 100 mg PO TID 2 Days Qty: 6 0RF Wegovy 1.7 mg/0.75 mL pen injector See Rx Instructions .ROUTE .COMPLEX Qty: 4 2RF Dose Instruction: INJECT 1.7 MG SUBCUTANEOUSLY WEEKLY; ADMINISTER 13 THROUGH 16 WEEKS OF THERAPY Rx Instructions: INJECT 1.7 MG SUBCUTANEOUSLY WEEKLY; ADMINISTER 13 THROUGH 16 WEEKS OF THERAPY (DME) Dexcom G7 [employer] Misc See Rx Instructions .Route Qty: 1 0RF Rx Instructions: As directed (DME) Dexcom G7 Sensor Device See Rx Instructions .Route Qty: 1 0RF Rx Instructions: As directed metoprolol succinate [Toprol XL] 100 mg tablet extended release 24 hr 50 mg PO BID Referrals Follow up/Referrals: Guadalupe Watson PA [Primary Care Provider] - See instructions Activity Restrictions/Add. Instructions Additional Instructions/Restrictions: Please follow-up with your primary care provider. Please return to the emergency department if you develop any new or worsening symptoms or become concerned for your health. Clinical Impressions Clinical Impression: Arm pain, left Chest pain Qualifiers: Chest pain type: unspecified Qualified Code(s): R07.9 - Chest pain, unspecified Discharge ED Provider: Janes Larkin Adult HPI General Chief complaint: Chest Pain Stated complaint: CP Time Seen by Provider: 10/28/23 23:15 Mode of Arrival: Ambulatory Source of Information: Patient Limitations: No Limitations Description of Symptoms (Recalled from ER Triage Doc. by RN): Patient reports intermittent upper chest pain with left arm and elbow pain. Patient is on metoprolol for tachycardia. Patient states that she has been intermittently feeling as though her heart rate is too high as well. History of Present Illness HPI narrative: 28-year-old female with history of PCOS, anxiety, pyelonephritis presents with intermittent chest pain and left arm pain. She recently traveled back from [facility]. She reports symptoms been ongoing all day. She thinks that it is just anxiety, but wanted to get checked out.Denies any recent fever or illness. Denies any history of blood clots. Reports that she just completed her most recent menstrual cycle and there is no chance she could be . Related Data Home Medications Medication Instructions Recorded Confirmed levothyroxine 25 mcg capsule 12.5 mcg PO DAILY thyroid 02/14/23 08/31/23 metoprolol succinate 100 mg 50 mg PO BID htn 05/11/23 08/31/23 tablet,extended release 24 hr (Toprol XL) magnesium oxide 400 mg (241.3 mg mg PO 08/21/23 08/31/23 magnesium) tablet Previous Rx's Medication Instructions Recorded semaglutide (weight loss) 1.7 See Rx Instructions .Route 07/25/23 mg/0.75 mL subcutaneous pen .COMPLEX #4 mL injector ([employer]) blood-glucose meter,continuous #1 ea 08/07/23 (Dexcom G7 [employer]) blood-glucose sensor (Dexcom G7 #1 ea 08/07/23 Sensor device) phenazopyridine 100 mg tablet 100 mg PO TID 2 days #6 tabs 08/31/23 (Pyridium) Allergies Allergy/AdvReac Type Severity Reaction Status Date / Time Sulfa (Sulfonamide Allergy Verified 08/31/23 15:39 Antibiotics) metformin AdvReac Intermediate diarrhea Verified 08/31/23 15:39 Penicillins AdvReac Verified 08/31/23 15:39 PFSH PFS Disclaimer: The information contained in this section may have been updated after the patient was seen, as this information can be updated by other users. Medical History Ascites BMI 39.0-39.9,adult Chest pain Edema Palpitations PCOS (polycystic ovarian syndrome) Sinus tachycardia SOB (shortness of breath) Surgical History H/O nephrolithotomy with removal of calculi Family History Other No significant family history Social History Smoking Status: Never smoker second hand exposure: No alcohol intake: current substance use type: denies use current occupational status: employed Travel in the last 8 weeks: Inside the [place] household members: family housing: house current occupational exposures/hazards: No caffeine: Yes ROS Obtained: Yes All systems reviewed & no additional complaints except as documented Physical Exam General General appearance: alert and in no apparent distress Head Head exam: atraumatic and normocephalic Eye Eye exam: Present normal appearance, PERRL and EOMI ENT ENT exam: Present normal oropharynx and normal external ear exam Neck Neck exam: Present normal inspection and full ROM Chest Chest inspection: Present normal inspection and symmetric chest wall rise; Absent tenderness Respiratory Respiratory exam: Present normal lung sounds bilaterally; Absent respiratory distress Cardiovascular Cardiovascular exam: Present regular rate and normal rhythm Abdominal Exam Abdominal exam: Present soft; Absent distention, tenderness or guarding Extremities Exam Extremities exam: Present normal inspection and other (Mild tenderness over the left triceps, no bony tenderness, no neurologic deficits) Back Exam Back exam: Present normal inspection; Absent tenderness Neurological Exam Neurological exam: Present alert and oriented X3; Absent motor sensory deficit Psychiatric Psychiatric exam: Present normal affect and normal mood Skin Skin exam: Present warm, dry and normal color Lymphatic Lymphatic Findings: no adenopathy Medical Decision Making Medical Records Medical records reviewed: Yes I reviewed the patient's medical records. Toño Inquiry Pt receiving controlled substance: No Toño was queried for this patient: No Vital Signs: 10/28/23 21:53 10/28/23 22:30 10/28/23 23:00 Temperature 98.1 F Temperature Source Oral Pulse Rate 80 88 Pulse Rate [Left Radial] 80 Respiratory Rate 18 14 13 Blood Pressure 110/72 112/85 Blood Pressure [Right Arm] 126/88 Blood Pressure Mean Blood Pressure Mean [Right Arm] 100 Blood Pressure Source Blood Pressure Source [Right Arm] Automatic Cuff Blood Pressure Position Blood Pressure Position [Right Arm] Sitting 02 Sat by Pulse Oximetry 96 97 97 Oxygen Delivery Method Room Air 10/28/23 23:31 10/29/23 00:00 10/29/23 00:30 Temperature Temperature Source Pulse Rate 95 H 93 H 86 Pulse Rate [Left Radial] Respiratory Rate 13 16 14 Blood Pressure 101/73 L 110/67 113/75 Blood Pressure [Right Arm] Blood Pressure Mean 82 72 83 Blood Pressure Mean [Right Arm] Blood Pressure Source Blood Pressure Source [Right Arm] Blood Pressure Position Blood Pressure Position [Right Arm] 02 Sat by Pulse Oximetry 93 L 93 L 96 Oxygen Delivery Method 10/29/23 01:16 Temperature 98.0 F Temperature Source Oral Pulse Rate 77 Pulse Rate [Left Radial] Respiratory Rate 18 Blood Pressure 97/52 L Blood Pressure [Right Arm] Blood Pressure Mean Blood Pressure Mean [Right Arm] Blood Pressure Source Automatic Cuff Blood Pressure Source [Right Arm] Blood Pressure Position Sitting Blood Pressure Position [Right Arm] 02 Sat by Pulse Oximetry Oxygen Delivery Method Room Air Lab Data Lab results reviewed: Yes I reviewed the patient's lab results. Lab Results 10/28/23 21:58: WBC 7.1, RBC 4.77, Hgb 14.7, Hct 41.2, MCV 86.4, MCH 30.8, MCHC 35.7 H, RDW 13.2, Plt Count 277, MPV 7.7, Neut % (Auto) 58.9, Lymph % (Auto) 33.4, [place] % (Auto) 5.3, Eos % (Auto) 1.4, Baso % (Auto) 1.0, Neut # (Auto) 4.2, Lymph # (Auto) 2.4, [place] # (Auto) 0.4, Eos # (Auto) 0.1, Baso # (Auto) 0.1, D-Dimer 0.52 H, Sodium 139, Potassium 3.6, Chloride 101, Carbon Dioxide 30, Anion Gap 11.6, BUN 13, Creatinine 0.70, Estimated Creat Clear 197, Estimated GFR 100, Est GFR ( Amer) 121, Glucose 98, Calcium 9.2, Total Bilirubin 0.6, AST 64 H, ALT 72, Alkaline Phosphatase 64, Troponin I < 0.01, Total Protein 8.1, Albumin 4.7, Globulin 3.4 H, Albumin/Globulin Ratio 1.4 10/28/23 21:58 10/28/23 21:58 Orders (Tests/Meds): ORDERS Category Date Time Status Chest XR -- portable [XR chest portable] Stat Exams 10/28/23 22:18 Completed Complete Blood Count Auto Diff Stat Lab 10/28/23 21:58 Completed Comprehensive Metabolic Panel Stat Lab 10/28/23 21:58 Completed D-Dimer Stat Lab 10/28/23 21:58 Completed Troponin I Stat Lab 10/28/23 21:58 Completed ECG initial [place] Routine Y 10/28/23 21:59 Completed Medical Decision Narrative: 28-year-old female with history of anxiety presents with 1 day of chest pain and left arm pain.. History was obtained via conversation with patient. On arrival, patient is [afebrile, hemodynamically stable, satting appropriately, alert, oriented x4, GCS 15], moving all extremities spontaneously. Full physical exam performed and significant for mild tenderness in the left triceps, no overlying skin changes, no neurodeficits. Clear lungs bilaterally. Differential includes but is not limited to anxiety, musculoskeletal chest pain, pneumonia, PE, pericarditis. Workup initiated including CBC CMP troponin chest x-ray EKG D-dimer. Patient unable to PERC out secondary to tachycardia.. On re-evaluation, patient [remains afebrile, HD stable.] Reports symptomatic improvement. Laboratory workup independently interpreted by me and significant for D-dimer negative by years criteria, initial troponin undetectable, CBC and CMP nonactionable.. Imaging independently interpreted by me and significant for clear lungs bilaterally without evidence of opacity or pneumothorax.. See radiology read for full review of final results. EKG independently interpreted by me and significant for sinus rhythm, rate of 91, no concerning ST or T wave changes.. Given patient history, exam and workup, patient's presentation most likely represents noncardiac chest pain. Interactive discussion was had with patient regarding her symptoms. Patient discharged in stable condition. Return precautions given.. Procedures Risk/Benefits of Procedure(s) Were Explained: Yes Critical Care Critical Care Time Critical Care Time: No
[2023-10-28 23:31] VITALS: BP 101/73; PULSE 95; RESP 13; O2SAT 93
[2023-10-28 23:40] LABS: D-Dimer 0.52 ug/mL (0.0-0.5)
[2023-10-29] VITALS: BP 110/67; PULSE 93; RESP 16; O2SAT 93
[2023-10-29 00:30] VITALS: BP 113/75; PULSE 86; RESP 14; O2SAT 96
[2023-10-29 01:16] VITALS: BP 97/52; PULSE 77; RESP 18; TEMP 36.7; O2SAT 95
== END 2023-10-29 01:26 | disposition home or self-care (01) ==
PROVIDERS: Student in an Organized Health Care Education/Training Program; Emergency Provider Emergency Medicine; PCP Physician Assistant
DX: R07.9 Chest pain, unspecified (principal); M79.602 Pain in left arm; M25.522 Pain in left elbow; E28.2 Polycystic ovarian syndrome
CPT/HCPCS: 71045; 80053; 84484; 85025; 85378; 93005; 99285

== ENCOUNTER 2023-11-06 18:21 | Emergency (ER) | payer BC, SELFPAY ==
[2023-11-06 19:30] VITALS: BP 117/78; PULSE 86; RESP 18; TEMP 36.4; O2SAT 100; BMI 35.2
--- NOTE | 2023-11-06 19:31 | EXP.UTC ---
Discharge Plan Disposition Patient Disposition: Home, Self-Care Condition: Good Prescriptions Prescriptions: New phenazopyridine [Pyridium] 200 mg tablet 200 mg PO Q8H 2 Days Qty: 6 0RF ciprofloxacin HCl [Cipro] 500 mg tablet 500 mg PO BID 5 Days Qty: 10 0RF No Action magnesium oxide 400 mg (241.3 mg magnesium) tablet 400 mg PO DAILY Patient Comments: TAKE 1 TABLET BY MOUTH ONCE DAILY levothyroxine 25 mcg capsule 12.5 mcg PO DAILY (DME) Dexcom G7 Aquarist Misc See Rx Instructions .Route Qty: 1 0RF Rx Instructions: As directed (DME) Dexcom G7 Sensor Device See Rx Instructions .Route Qty: 1 0RF Rx Instructions: As directed Wegovy 1.7 mg/0.75 mL pen injector See Rx Instructions .ROUTE .COMPLEX Qty: 4 0RF Dose Instruction: INJECT 1.7 MG SUBCUTANEOUSLY WEEKLY; ADMINISTER 13 THROUGH 16 WEEKS OF THERAPY Rx Instructions: INJECT 1.7 MG SUBCUTANEOUSLY WEEKLY; ADMINISTER 13 THROUGH 16 WEEKS OF THERAPY metoprolol succinate [Toprol XL] 100 mg tablet extended release 24 hr 50 mg PO BID Referrals Follow up/Referrals: Guadalupe Watson PA [Primary Care Provider] - See instructions Activity Restrictions/Add. Instructions Additional Instructions/Restrictions: Drink plenty of fluids. Take tylenol for pain or fever. Take the medications as directed. Follow up with your regular doctor. GO TO THE ER FOR ANY WORSENING SYMPTOMS The pyridium will make your urine turn orange, this is an expected side effect. It will stain your clothes if it comes into contact with them. We will culture the urine. That will tell what bacteria is causing your infection and which antibiotics will treat it best. Sometimes the first antibiotic we prescribe turns out to not work against different bacteria. So, make sure you follow up within 3 days if you are not getting better. Clinical Impressions Clinical Impression: UTI (urinary tract infection) Instructions Patient Instructions: Urine Culture, DI for Urinary Tract Infection (UTI), Phenazopyridine Discharge ED Provider: Quirino Kee [facility] General Stated complaint: back pain trouble urinating Time Seen by Provider: 11/06/23 19:31 History of Present Illness Provider Complaint: She states that for the past 3 days she has had low back pain, dysuria, and urinary frequency. Related Data Home Medications Medication Instructions Recorded Confirmed levothyroxine 25 mcg capsule 12.5 mcg PO DAILY thyroid 02/14/23 11/06/23 metoprolol succinate 100 mg 50 mg PO BID htn 05/11/23 11/06/23 tablet,extended release 24 hr (Toprol XL) magnesium oxide 400 mg (241.3 mg 400 mg PO DAILY 08/21/23 11/06/23 magnesium) tablet Previous Rx's Medication Instructions Recorded blood-glucose meter,continuous #1 ea 08/07/23 (Dexcom G7 Aquarist) blood-glucose sensor (Dexcom G7 #1 ea 08/07/23 Sensor device) semaglutide (weight loss) 1.7 See Rx Instructions .Route 10/31/23 mg/0.75 mL subcutaneous pen .COMPLEX #4 mL injector ([email or web address]) ciprofloxacin HCl 500 mg tablet 500 mg PO BID 5 days #10 tabs 11/06/23 (Cipro) phenazopyridine 200 mg tablet 200 mg PO Q8H 2 days #6 tabs 11/06/23 (Pyridium) Allergies Allergy/AdvReac Type Severity Reaction Status Date / Time Sulfa (Sulfonamide Allergy Verified 11/06/23 19:36 Antibiotics) metformin AdvReac Intermediate diarrhea Verified 11/06/23 19:36 Penicillins AdvReac Verified 11/06/23 19:36 PFSH PFSH Disclaimer: The information contained in this section may have been updated after the patient was seen, as this information can be updated by other users. Medical History Ascites BMI 39.0-39.9,adult Chest pain Edema Palpitations PCOS (polycystic ovarian syndrome) Sinus tachycardia SOB (shortness of breath) Surgical History H/O nephrolithotomy with removal of calculi Family History Other No significant family history Social History Smoking Status: Never smoker second hand exposure: No alcohol intake: current substance use type: denies use current occupational status: employed Travel in the last 8 weeks: Inside the [place] household members: family housing: house current occupational exposures/hazards: No caffeine: Yes ROS Obtained: Yes All systems reviewed & no additional complaints except as documented Constitutional Constitutional: Reports system reviewed and no additional complaints, except as documented, Denies chills and Denies fever(s) Eyes Eyes: Denies eye discharge ENT Ears, Nose, Mouth, and Throat: Denies dysphagia, Denies sore throat and Denies throat swelling Cardiovascular Cardiovascular: Denies chest pain and Denies dyspnea Respiratory Respiratory: Denies chest congestion, Denies cough and Denies dyspnea Gastrointestinal Gastrointestingal: Denies abdominal pain, constipation, diarrhea, dysphagia, nausea or vomiting Genitourinary Female Genitourinary: Reports as per HPI, Reports dysuria, Reports urinary frequency, Denies urinary incontinence, Reports urinary hesitancy and Reports urinary urgency Musculoskeletal Musculoskeletal: Denies arthralgias and Reports back pain Integumentary/Breasts Skin/Breast: Denies rash Neurologic Neurologic: Denies paresthesias Allergic/Immunologic Allergic/Immunologic: Denies throat swelling Physical Exam General General appearance: alert and in no apparent distress Head Head exam: atraumatic, normocephalic and normal inspection Eye Eye exam: Present normal appearance, PERRL and EOMI ENT ENT exam: Present normal exam, normal oropharynx, mucous membranes moist, TM's normal bilaterally and normal external ear exam Neck Neck exam: Present normal inspection, full ROM and trachea midline; Absent meningismus or lymphadenopathy Chest Chest inspection: Present normal inspection and symmetric chest wall rise; Absent tenderness Respiratory Respiratory exam: Present normal lung sounds bilaterally; Absent respiratory distress Cardiovascular Cardiovascular exam: Present regular rate and normal rhythm; Absent JVD Abdominal Exam Abdominal exam: Present soft and normal bowel sounds; Absent distention, tenderness or guarding Extremities Exam Extremities exam: Present normal inspection, full ROM and normal capillary refill; Absent calf tenderness Back Exam Back exam: Present normal inspection; Absent tenderness Neurological Exam Neurological exam: Present alert and oriented X3 Psychiatric Psychiatric exam: Present normal affect and normal mood Skin Skin exam: Present warm, dry, intact and normal color Lymphatic Lymphatic Findings: no adenopathy Medical Decision Making Medical Records Medical records reviewed: No I reviewed the patient's medical records. Toño Inquiry Pt receiving controlled substance: No Lab Data Lab results reviewed: Yes I reviewed the patient's lab results.
[2023-11-06 19:51] LABS: Apearance,Urine Slightly Cloudy (Clear); Bilirubin,Urine Negative (Negative); Blood, Urine Negative (Negative); Color,Urine Dark Yellow (Yellow); Glucose,Urine (UA) Negative (Negative); Ketones,Urine Negative (Negative); Protein,Urine Negative (Negative); Specific Gravity, Urine 1.025 (1.005-1.030); UTC Leukocyte Esterase,Urine Negative (Negative); UTC Nitrate,Urine Negative (Negative); Urobilinogen,Urine 0.2 EU/dl (0.2)
[2023-11-06 20:03] VITALS: BP 117/78; PULSE 86; RESP 18; TEMP 36.4
== END 2023-11-06 20:04 | disposition home or self-care (01) ==
PROVIDERS: Emergency Provider Nurse Practitioner Family; PCP Physician Assistant
DX: N39.0 Urinary tract infection, site not specified (principal); B95.1 Streptococcus, group B, as the cause of diseases classified elsewhere; M54.59 Other low back pain
CPT/HCPCS: 81003; 87086; 99212; 99214; G0463

== ENCOUNTER 2023-11-16 21:54 | Outpatient (CLI) | payer BC, SELFPAY ==
[2023-11-16 20:00] LABS: Thyroid Stimulating Hormone 0.97 uIU/mL (0.465-4.68)
== END 2023-11-16 23:59 ==
LOC: LAB.DROPOF 21:54
PROVIDERS: PCP Physician Assistant; Visit Provider Physician Assistant
DX: R79.89 Other specified abnormal findings of blood chemistry (principal); F41.9 Anxiety disorder, unspecified
CPT/HCPCS: 84443

== ENCOUNTER 2023-12-07 22:28 | Outpatient (CLI) | payer BC, SELFPAY | END 2023-12-07 23:59 | LOC: LAB.DROPOF 22:28 | PROVIDERS: PCP Student in an Organized Health Care Education/Training Program; Visit Provider Student in an Organized Health Care Education/Training Program | DX: M54.9 Dorsalgia, unspecified (principal); B95.1 Streptococcus, group B, as the cause of diseases classified elsewhere; B96.89 Other specified bacterial agents as the cause of diseases classified elsewhere | CPT/HCPCS: 87086 ==

== ENCOUNTER 2023-12-19 21:33 | Outpatient (CLI) | payer BC, SELFPAY ==
[2023-12-19 18:31] LABS: Basophils # 0.1 K/mm3 (0-0.2); Basophils % 1.1 % (0.1-2.0); Eosinophils # 0.1 K/mm3 (0.0-0.4); Eosinophils % 1.3 % (0.1-12.0); Hematocrit 40.2 % (37.0-47.0); Hemoglobin 13.5 g/dL (12.2-16.2); Lymphocytes # 2.4 K/mm3 (0.7-4.5); Lymphocytes % 34.1 % (10-50); Mean Corpuscular HGB Conc 33.5 g/dL (31.8-35.4); Mean Corpuscular Hemoglobin 30.3 pg (27.0-31.2); Mean Corpuscular Volume 90.6 fl (81-99); Mean Platelet Volume 8.1 fl (7.4-10.4); Monocytes # 0.3 K/mm3 (0.1-1.0); Monocytes % 3.9 % (1.7-9.3); Neutrophils # 4.2 K/mm3 (1.8-7.8); Neutrophils % 59.5 % (37.0-80.0); Platelet Count 292 K/mm3 (142-424); Red Blood Count 4.44 M/mm3 (4.20-5.40); Red Cell Distribution Width 13.6 % (11.5-17.5)
[2023-12-19 18:34] LABS: Albumin Level 4.3 g/dl (3.5-5.0); Albumin/Globulin Ratio 1.6 (1.1-1.8); Alkaline Phosphatase 58 U/L (38-126); Anion Gap 8.9 mEq/L (5-15); Bilirubin,Total 0.5 mg/dl (0.2-1.3); Blood Urea Nitrogen 9 mg/dl (7-17); Calcium 9.1 mg/dl (8.4-10.2); Carbon Dioxide 28 mmol/L (22.0-30.0); Chloride 106 mmol/L (98-107); Estimated Glomerular Filt Rate 86 ml/min (>60); GFR (African American) 104 ML/MIN (>60); Globulin 2.7 g/dL (1.3-3.2); Glucose 105 mg/dl (74-100); Potassium 3.9 mmoL/L (3.5-5.1); Sodium 139 mmol/L (136-145)
[2023-12-19 18:35] LABS: Alanine Aminotransferase 30 U/L (12-78)
[2023-12-19 19:43] LABS: Aspartate Amino Transferase 30 U/L (14-36)
[2023-12-21 14:13] LABS: Anti-Centromere B Antibodies <0.2 AI (0.0-0.9); Anti-DNA (DS) Ab Qn <1 IU/mL (0-9); Anti-Jo-1 <0.2 AI (0.0-0.9); Anti-Smith Antibody <0.2 AI (0.0-0.9); Antichromatin Antibodies <0.2 AI (0.0-0.9); Antiscleroderma-70 Antibodies <0.2 AI (0.0-0.9); RNP Antibodies 0.3 AI (0.0-0.9); Sjogren's Anti-SS-A <0.2 AI (0.0-0.9); Sjogren's Anti-SS-B <0.2 AI (0.0-0.9)
== END 2023-12-19 23:59 ==
LOC: LAB.DROPOF 21:33
PROVIDERS: PCP Student in an Organized Health Care Education/Training Program; Visit Provider Student in an Organized Health Care Education/Training Program
DX: M54.50 Low back pain, unspecified (principal); M25.50 Pain in unspecified joint; R53.83 Other fatigue
CPT/HCPCS: 80053; 85025; 86225; 86235; 86812; 87086

== ENCOUNTER 2024-04-22 10:17 | Outpatient (CLI) | payer BC, SELFPAY | END 2024-04-22 23:59 | disposition home or self-care (01) | LOC: LAB.DROPOF 04-23 10:17 | PROVIDERS: PCP Student in an Organized Health Care Education/Training Program; Visit Provider Student in an Organized Health Care Education/Training Program | DX: N30.01 Acute cystitis with hematuria (principal) | CPT/HCPCS: 87086 ==

== ENCOUNTER 2024-05-02 17:29 | Outpatient (CLI) | payer BC, SELFPAY ==
[2024-05-02 17:30] LABS: Basophils # 0.1 K/mm3 (0-0.2); Basophils % 0.9 % (0.1-2.0); Eosinophils # 0.1 K/mm3 (0.0-0.4); Eosinophils % 1.3 % (0.1-12.0); Hematocrit 38.6 % (37.0-47.0); Hemoglobin 13.5 g/dL (12.2-16.2); Lymphocytes # 2.4 K/mm3 (0.7-4.5); Lymphocytes % 43.4 % (10-50); Mean Corpuscular Hemoglobin 30.9 pg (27.0-31.2); Mean Corpuscular Volume 88.3 fl (81-99); Mean Platelet Volume 8.2 fl (7.4-10.4); Monocytes # 0.3 K/mm3 (0.1-1.0); Monocytes % 5.8 % (1.7-9.3); Neutrophils # 2.7 K/mm3 (1.8-7.8); Neutrophils % 48.6 % (37.0-80.0); Platelet Count 278 K/mm3 (142-424); Red Blood Count 4.37 M/mm3 (4.20-5.40); Red Cell Distribution Width 13.6 % (11.5-17.5); White Blood Count 5.5 K/mm3 (4.8-10.8)
[2024-05-02 18:30] LABS: Alanine Aminotransferase 50 U/L (12-78); Albumin Level 4.1 g/dl (3.5-5.0); Albumin/Globulin Ratio 1.4 (1.1-1.8); Alkaline Phosphatase 52 U/L (38-126); Anion Gap 12.9 mEq/L (5-15); Aspartate Amino Transferase 40 U/L (14-36); Bilirubin,Total 0.7 mg/dl (0.2-1.3); Blood Urea Nitrogen 16 mg/dl (7-17); Calcium 9.4 mg/dl (8.4-10.2); Carbon Dioxide 25 mmol/L (22.0-30.0); Chloride 106 mmol/L (98-107); Cholesterol 154 mg/dl (140-200); Estimated Glomerular Filt Rate 100 ml/min (>60); GFR (African American) 121 ML/MIN (>60); Globulin 2.9 g/dL (1.3-3.2); Glucose 83 mg/dl (74-100); HDL Cholesterol 51 mg/dl (40-60); Potassium 3.9 mmoL/L (3.5-5.1); Sodium 140 mmol/L (136-145); Triglycerides 96 mg/dl (30-150); VLDL Cholesterol 19 mg/dL (0-40)
[2024-05-02 18:41] LABS: Direct LDL Cholesterol 70.92 mg/dL (100-129)
[2024-05-02 18:47] LABS: 25-OH Vitamin D, Total 72.2 ng/mL (30-100)
[2024-05-02 19:01] LABS: Thyroid Stimulating Hormone 0.74 uIU/mL (0.465-4.68)
[2024-05-02 21:59] LABS: Hemoglobin A1C 4.8 % (4.0-6.0)
== END 2024-05-02 23:59 | disposition home or self-care (01) ==
LOC: LAB.DROPOF 17:30
PROVIDERS: PCP Physician Assistant; Visit Provider Physician Assistant
DX: R79.89 Other specified abnormal findings of blood chemistry (principal); E11.69 Type 2 diabetes mellitus with other specified complication; Z79.85 Long-term (current) use of injectable non-insulin antidiabetic drugs; Z68.34 Body mass index [BMI] 34.0-34.9, adult; E66.9 Obesity, unspecified
CPT/HCPCS: 80050; 80053; 80061; 82306; 83036; 84443; 85025

== ENCOUNTER 2024-08-09 15:38 | Outpatient (CLI) | payer BC, SELFPAY | END 2024-08-09 23:59 | disposition home or self-care (01) | LOC: LAB.DROPOF 08-10 09:22 | PROVIDERS: PCP Physician Assistant; Visit Provider Student in an Organized Health Care Education/Training Program | DX: R39.9 Unspecified symptoms and signs involving the genitourinary system (principal) | CPT/HCPCS: 87086; 87088; 87186 ==

== ENCOUNTER 2025-02-18 15:29 | Outpatient (CLI) | payer BC, SELFPAY ==
[2025-02-18 16:28] LABS: Basophils % 0.6 % (0.1-2.0); Eosinophils # 0.1 Kmm3 (0.0-0.4); Eosinophils % 1.5 % (0.1-12.0); Hematocrit 39.4 % (37.0-47.0); Hemoglobin 13.5 g/dL (12.2-16.2); Immature Granulocytes # 0.02 10^3uL; Immature Granulocytes % 0.3 %; Lymphocytes # 2.2 K/mm3 (0.7-4.5); Lymphocytes % 30.5 % (10-50); Mean Corpuscular HGB Conc 34.3 g/dL (31.8-35.4); Mean Corpuscular Hemoglobin 29.8 pg (27.0-31.2); Mean Platelet Volume 9.8 fl (7.4-10.4); Monocytes # 0.7 K/mm3 (0.1-1.0); Monocytes % 9.5 % (1.7-9.3); Neutrophils # 4.1 K/mm3 (1.8-7.8); Neutrophils % 57.6 % (37.0-80.0); Nucleated Red Blood Cells # 0 10^3/uL; Nucleated Red Blood Cells % 0 %; Platelet Count 252 K/mm3 (142-424); Red Blood Count 4.53 M/mm3 (4.20-5.40); Red Cell Distribution Width 12.6 % (11.5-17.5); Red Cell Distribution Width-SD 39.8 fL; White Blood Count 7.1 K/mm3 (4.8-10.8)
[2025-02-18 16:48] LABS: Alanine Aminotransferase 41 U/L (12-78); Albumin Level 4.6 g/dl (3.5-5.0); Alkaline Phosphatase 63 U/L (38-126); Anion Gap 12.3 mEq/L (5-15); Aspartate Amino Transferase 34 U/L (14-36); Bilirubin,Direct 0.2 mg/dl (0.0-0.4); Bilirubin,Indirect 0.4 mg/dL (0.0-0.9); Bilirubin,Total 0.6 mg/dl (0.2-1.3); Bilirubin,Unconjugated 0.4 mg/dL (0.0-1.1); Blood Urea Nitrogen 19 mg/dl (7-17); Calcium 9.4 mg/dl (8.4-10.2); Carbon Dioxide 26 mmol/L (22.0-30.0); Chloride 103 mmol/L (98-107); Chol/HDL Ratio 2.7 (1-3.5); Cholesterol 146 mg/dl (140-200); Estimated Glomerular Filt Rate 119 ml/min (>60); GFR (African American) 144 ML/MIN (>60); Glucose 78 mg/dl (74-100); HDL Cholesterol 54 mg/dl (40-60); Magnesium 1.8 mg/dl (1.6-2.3); Potassium 4.3 mmoL/L (3.5-5.1); Sodium 137 mmol/L (136-145); Total Protein,Serum 7.1 g/dl (6.3-8.2); Triglycerides 134 mg/dl (30-150); VLDL Cholesterol 27 mg/dL (0-40)
[2025-02-18 17:00] LABS: Direct LDL Cholesterol 59.79 mg/dL (100-129)
[2025-02-18 17:08] LABS: Free T4 (Free Thyroxine) 1.12 ng/dl (0.78-2.19)
[2025-02-18 17:22] LABS: Thyroid Stimulating Hormone 0.75 uIU/mL (0.465-4.68)
== END 2025-02-18 23:59 | disposition home or self-care (01) ==
LOC: LAB 15:30
PROVIDERS: PCP Physician Assistant; Visit Provider Nurse Practitioner
DX: E11.69 Type 2 diabetes mellitus with other specified complication (principal); R06.02 Shortness of breath; R79.89 Other specified abnormal findings of blood chemistry
CPT/HCPCS: 36415; 80048; 80061; 80076; 83735; 84439; 84443; 85025

== ENCOUNTER 2025-08-08 13:03 | Outpatient (CLI) | payer BC, SELFPAY ==
--- OUTSIDE RECORDS SUMMARY | 2024-05-04 04:00 | XMS_ITS ---
Author Organization [facility] Address [address] [place] [address] Care Team Providers Care Drill Doctor Name Role Phone Echo Cottrell Unavailable [phone] Migration, Provider Unavailable Unavailable Allergies Allergen (clinical drug ingredient) Drug/Non Drug Allergy documented on EMR Reaction Allergy Type Onset Date Status Substance with penicillin structure and antibacterial mechanism of action (substance) Medications: PENICILLINS (uncoded) Unspecified Allergy Active Substance with sulfonamide structure and antibacterial mechanism of action (substance) Medications: SULFA (SULFONAMIDE ANTIBIOTICS) (uncoded) Unspecified Allergy Active Medications Medication SIG (Take, Route, Fr equency, Duration) Notes Start Date End Date Status Spironolactone 1 tablet oral QD Active metFORMIN HCl ER 3 tablets oral QD 07/15/2021 Active Sprintec 28 1 tablet oral QD 10/07/2021 Active Cephalexin 1 capsule oral Q8H Active Encounters Encounter Location Date Provider Diagnosis [facility] [address] [place] [address] 05/04/2024 Provider Migration Plan Of Treatment No Information Progress Notes * Sherry ROCKWELLDOB:1995 (30 yo F)Acc No.[id number]:05/04/2024 Patient: Sherry COLEMAN :1995 A ge:28 Y S ex:Female [facility] [facility] [facility] [address] Subjective: * Chief Complaints: * Medical History: Dysmenorrhea Dyspareunia Acne Hirsutism Ovarian Cyst Heavy menses PCOS (polycystic ovarian syndrome) Tachycardia * 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 S exual Activity/Contraception: C ontraception: V asectomy. * OB History: P regnancy History (GPA) T otal Pregnancies 2 , F ull Term 2 , P remature?0, A B. Induced 0 , A B. Spontaneous 0 , E ctopics 0 , M ultiple Births 0 , L iving 2 . G P G ravida: 2 , P olive: 2 . * Surgical History: Cystectomy -ovarian Meniscus repair [place] teeth surgery * Family History: F amily History Verified.. Father: Hypertension, Benign Essential, Hypercholesterolemia (Isolated), Grandfather (paternal): Heart Disease, Grandmother (maternal): Hypertension, Benign Essential, Family history of Endometrial Cancer, Family history of thyroid disease, Grandmother (paternal): Hypertension, Benign Essential, Diabetes, Heart Disease. * Medications: T akingSpironolactone 1 tablet oral QD Sprintec 28 1 tablet oral QD Cephalexin 1 capsule oral Q8H metFORMIN HCl ER 3 tablets oral QD Taking Spironolactone 1 tablet oral QD Taking Sprintec 28 1 tablet oral QD Taking Cephalexin 1 capsule oral Q8H Taking metFORMIN HCl ER 3 tablets oral QD * Allergies: M edications: PENICILLINS: Unspecified - AllergyMedications: SULFA (SULFONAMIDE ANTIBIOTICS): Unspecified - AllergyyesAllergies Verified. * * Date:
--- OUTSIDE RECORDS SUMMARY | 2025-01-21 10:30 | XMS_ITS ---
Author [facility] Address [address] [facility] [address] [place] [id number] Care Team Providers Care Mri Manager Name Role Phone Ingrid Fernando Primary Care Provider Margret Gail Robin Chapa [phone] Allergies Allergen (clinical drug ingredient) Drug/Non Drug Allergy documented on EMR Reaction Allergy Type Onset Date Status Substance with sulfonamide structure and antibacterial mechanism of action (substance) Sulfa Antibiotics Unknown Drug Allergy Active Results Component Value Reference Range Notes Urinalysis - Inhouse Reviewed date:01/22/2025 09:41:58 PM Interpretation: Performing Lab: Notes/Report: Color/Clarity yellow/clear Leuk 2+ Nitrite Neg Urobili 3.2 Protein Neg pH 5.5 Blood Trace-intact Sp. Gr. 1.010 Ketone Neg Bili Neg Gluc Neg P-Culture, Urine Reviewed date:01/23/2025 08:13:09 AM Interpretation:No Growth Performing Lab: Notes/Report: Test performed by [employer] [address] [place] [address] , [address], [place] [address] Jose Casey MD, Fsr CLIA: [id number] Specimen Source Urine - Void Culture, Urine See Below Final Report : No growth REASON FOR VISIT poss UTI Medications Medication SIG (Take, Route, Frequency, Duration) Notes Start Date End Date Status Halle 0.25-35 MG-MCG 1 tab(s) orally once a day; Duration: 28 day(s) Active Macrobid 100 MG 1 capsule with food Orally Two times a day 01/21/2025 Active buPROPion HCl ER (SR) 150 MG 1 tab(s) orally 2 times a day; Duration: 30 day(s) Active Bisoprolol Fumarate 10 MG 1 tab(s) orall y once a day; Duration: 30 day(s) Active Vital Signs Blood pressure systolic 112 mm Hg 01/22/20 25 Blood pressure diastolic 72 mm Hg 025 Heart Rate 90 /min 01/21/2025 Height 67 in 01/21/2025 Weight 233.4 lbs 01/21/2025 BMI 36.55 kg/m2 01/21/2025 Encounters Encounter Location Date Provider Diagnosis [facility] [address] [place], [place] [id number] 01/21/2025 Gail Oswald UTI (lower urinary tract infection) N39.0 Assessments Encounter Date Diagnosis (ICD Code) Assessment Notes Treatment Notes Treatment Clinical Notes Section Notes 01/21/2025 UTI (lower urinary tract infection) (ICD-10 - N39.0) Plan Of Treatment Medication Medication Name Sig Start Date Stop Date Notes Macrobid 100 MG 1 capsule with food Orally Two times a day 01/21/2025 Next Appt Details Follow Up: prn, Reason: Progress Notes * Sherry ROCKWELL BDOB: [birth year] (30 yo F)Acc No.[id number]:01/21/2025 Progress Notes Patient: Sherry COLEMAN Provider: Gail Oswald M.D. :1995 A ge:29 Y S ex:Female Date:01/21/2025 Address: [address] [facility] Pcp:Ingrid Fernando Subjective: * Chief Complaints: * 1 . poss UTI. * HPI: U rology: 29 year old female presents with c/o frequent urination T he pt is here today with c/o low back pain about a week ago. Pt states yesterday she had a lot of frequency and urgency. Pt denies any fever . c/o urgency. Denies : hematuria. D enies : fever. * ROS: C ARDIOLOGY: no C hest pain. n o S hortness of breath. ? D ERMATOLOGY: no R reese. n o H nigel. G ASTROENTEROLOGY: no N ausea. n o V omiting. n o D iarrhea.? * Medical History: M edical History Verified. * Surgical History: A CL Repair - left , wisdom teeth extraction , cyst removed off ovaries 2018. * Family History: F ather: alive. M other: alive. S iblings: alive. 1 brother(s) - healthy. . * Social History: C URRENT TOBACCO USE S moking Status: P atient does NOT smoke. * Medications: T aking Bisoprolol Fumarate 10 MG Tablet 1 tab(s) orally once a day , Taking buPROPion HCl ER (SR) 150 MG Tablet Extended Release 12 Hour 1 tab(s) orally 2 times a day , Taking Halle 0.25-35 MG-MCG Tablet 1 tab(s) orally once a day * Allergies: S ulfa Antibiotics. Objective: * Vitals: W t: 233.4, Temp: 98.3, BP: 112/72, HR: 90, Nurse: HEIDI, Ht: 67, BMI:36.55. * Examination: G eneral Examination: General Appearance: N AD. A bdomen: M ild suprapubic tenderness. No CVA tenderness.. Assessment: * Assessment: 1. U TI (lower urinary tract infection) - N39.0 (Primary) Plan: * Treatment: Value Reference Range C ulture, Urine See Below - * S pecimen Source Urine - Void - * Lilibeth Moreno 01/23/2025 08: 13:01 AM > pt informed of results * Labs: * L ab: Urinalysis - Inhouse (Collection Date & Time - 01/21/2025) Value Reference Range C olor/Clarity yellow/clear * L euk 2+ * N itrite Neg * U robili 3.2 * P rotein Neg * p H 5.5 * B lood Trace-intact * S p. Gr. 1.010 * K etone Neg * B miky Neg * G elly Neg * Procedure Codes: 8 1002 Urinalysis, no micro, 3074F SYST BP LT 130 MM HG, 3078F DIAST BP < 80 MM HG * Follow Up: p rn * Images: Billing Information: * Visit Code: 83505 Office Visit, Est Pt., Level 3. * Procedure Codes: 01731 Urinalysis, no micro. 3074F SYST BP LT 130 MM HG. 3078F DIAST BP < 80 MM HG. * Electronic signature of Gail Oswald MD on 08/08/2025 at 01:05 PM EST Sign off status: Pending * Provider: Gail Oswald M.D. Date: 0 01/21/2025 Generated for Issai raquel/Violeta/Josyransmitting on: 10/08/2024 01:05 PM EST History and Physical Notes * HPI (History of Present Illness) Category Sub-Category Detail Notes Category Not es Urology frequent urination The pt is her e today with c/o low back pain about a week ago. Pt states yesterday she had a lot of frequency and urgency. Pt denies any fever hematuria fever urgency Examination Category Sub-Category Detail Notes Category Not es General Examination Abdomen: Mild suprapu bic tenderness. No CVA tenderness. General Appearance: NAD
--- OUTSIDE RECORDS SUMMARY | 2025-05-14 10:30 | XMS_ITS ---
Author Organization [facility] Address [address] [facility] [address] [place] [id number] Care Team Providers Care Facilities Management Executive Name Role Phone Ingrid Fernando Primary Care Provider Allergies Allergen (clinical drug ingredient) Drug/Non Drug Allergy documented on EMR Reaction Allergy Type Onset Date Status Substance with sulfonamide structure and antibacterial mechanism of action (substance) Sulfa Antibiotics Unknown Drug Allergy Active Results Component Value Reference Range Notes Influenza Screen (in house) Reviewed date:05/14/2025 04:27:07 PM Interpretation: Performing Lab: Notes/Report: results Neg CBC Fingerstick (in house) Reviewed date:05/14/2025 04:28:58 PM Interpretation: Performing Lab: Notes/Report: wbc 5.8 3.5 - 10 lym 20.3% 15 - 50 mid 5.5% 2 - 15 gran 74.2% 35 - 80 rbc 4.26 3.5 - 5.5 hgb 12.8 11.5 - 16.5 hct 36.4 35 - 55 mcv 85.5 75 - 100 mch 30.1 25 - 35 mchc 35.1 31 - 38 plat 201 100 - 400 Covid test (in house) Reviewed date:05/14/2025 04:27:48 PM Interpretation: Performing Lab: Notes/Report: Result: Neg REASON FOR VISIT body aches ,cough and fever Medications Medication SIG (Take, Route, Frequency, Duration) Notes Start Date End Date Status Metoprolol Succinate 100 MG 1 capsule Or ally Once a day Active Albuterol Sulfate HFA 108 (90 Base) MCG/ACT 1-2 puffs Inhalation every 4 hrs, prn 05/14/2025 Active Bromfed DM 2-30-10 MG/5ML 5-10 mL Orally four times a day, prn 05/14/2025 Active Levothyroxine Sodium 25 MCG 1 tablet in the morning on an empty stomach Orally Once a day Active Mounjaro 12.5 MG/0.5ML as directed Subcutaneous Active Magnesium 400 MG as directed Orally Active Azithromycin 250 MG as directed Orally Active Vital Signs Blood pressure systolic 112 mm Hg 05/14/20 25 Blood pressure diastolic 76 mm Hg 025 Heart Rate 99 /min 05/14/2025 Height 67 in 05/14/2025 Weight 225.6 lbs 05/14/2025 BMI 35.33 kg/m2 05/14/2025 Encounters Encounter Location Date Provider Diagnosis [facility] [address] [place] [phone] 05/14/2025 Ingrid Fernando Acute URI J06.9 and Bronchitis J40 Assessments Encounter Date Diagnosis (ICD Code) Assessment Notes Treatment Notes Treatment Clinical Notes Section Notes 05/14/2025 Acute URI (ICD-10 - J06.9) 05/14/2025 Bronchitis (ICD-10 - J40) Plan Of Treatment Medication Medication Name Sig Start Date Stop Date Notes Albuterol Sulfate HFA 108 (9 0 Base) MCG/ACT 1-2 puffs Inhalation every 4 hrs, prn 05/14/2025 Bromfed DM 2-30-10 MG/5ML 5-10 mL Orally four times a day, prn 05/14/2025 Next Appt Details Follow Up: prn, Reason: Progress Notes * LIONELSherry BDOB: 6 (30 yo F)Acc No.[id number]:05/14/2025 Progress Notes Patient: Sherry COLEMAN B Provider: JOEY Gorman :1995 A ge:29 Y S ex:Female Date:05/14/2025 Address: [address] [facility] Subjective: * Chief Complaints: * 1 . Body aches ,cough and fever. * HPI: E NT/respiratory: Pt states these symptoms started last week. Pt states she went to Clinic on Monday and they tested her for Covid,Flu and Strep and all was neg. Pt states it just getting worse. 29 year old female presents with c/o sore throat. c/o cough. c/o Fever w ith chills. c/o Short of Breath. c/o headache. c/o chest congestion. c/o body aches. Denies : nasal congestion. D enies : Chest Pain. D enies : dizziness. * ROS: D ERMATOLOGY: no R reese. n o H nigel. G ASTROENTEROLOGY: no N ausea. n o V omiting. n o D iarrhea.? U ROLOGY: no D ifficulty urinating. n o B lood in urine. * Medical History: M edical History Verified. * Surgical History: A CL Repair - left , wisdom teeth extraction , cyst removed off ovaries 2018. * Family History: F ather: alive. M other: alive. S iblings: alive. 1 brother(s) - healthy. . * Social History: C URRENT TOBACCO USE S moking Status: P yaz does NOT smoke. * Medications: T aking Azithromycin 250 MG Tablet as directed Orally , Taking Magnesium 400 MG Capsule as directed Orally , Taking Mounjaro 12.5 MG/0.5ML Solution Auto-injector as directed Subcutaneous , Taking Levothyroxine Sodium 25 MCG Tablet 1 tablet in the morning on an empty stomach Orally Once a day , Taking Metoprolol Succinate 100 MG Capsule ER 24 Hour Sprinkle 1 capsule Orally Once a day , Discontinued Bisoprolol Fumarate 10 MG Tablet 1 tab(s) orally once a day , Discontinued buPROPion HCl ER (SR) 150 MG Tablet Extended Release 12 Hour 1 tab(s) orally 2 times a day , Discontinued Halle 0.25- 35 MG-MCG Tablet 1 tab(s) orally once a day , Discontinued Macrobid 100 MG Capsule 1 capsule with food Orally Two times a day , Medication List reviewed and reconciled with the patient * Allergies: S ulfa Antibiotics. Objective: * Vitals: W t: 225.6, Temp: 98.4, BP: 112/76, HR: 99, Nurse: pe, Ht: 67, BMI:35.33. * Examination: E NT/Respiratory: General Appearance: N AD. E ars: a uditory canals normal bilaterally, TM's WNL. N ose : t urbinates red, congested. S inuses : t pascale maxillary sinuses bilaterally. O ral cavity : e rythema without exudate on pharynx. N page : n o cervical lymphadenopathy. H eart : R RR, normal S1 S2, no murmurs. L ungs:?expiratory wheezes, no rales. Assessment: * Assessment: 1. A kian URI - J06.9 (Primary) 2 . B bro - J40 Plan: * Treatment: Value Reference Range r esults Neg * Maribel Combs 05/14/2025 04:26: 49 PM EDT > Provider reviewed results while patient in office. ?LAB: CBC Fingerstick (in house) (Collection Date & Time - 05/14/2025)* Value Reference Range w bc 5.8 3.5 - 10 * l ym 20.3% 15 - 50 * m id 5.5% 2 - 15 * g ran 74.2% 35 - 80 * r bc 4.26 3.5 - 5.5 * h gb 12.8 11.5 - 16.5 * h ct 36.4 35 - 55 * m cv 85.5 75 - 100 * m ch 30.1 25 - 35 * m chc 35.1 31 - 38 * p lat 201 100 - 400 * Teresa Combsira 05/14/2025 04:28: 52 PM EDT > Provider reviewed results while patient in office. ?LAB: Covid test (in house) (Collection Date & Time - 05/14/2025)* Value Reference Range R esult: Neg * Maribel Combs 05/14/2025 04:27: 42 PM EDT > Provider reviewed results while patient in office. 2.?Bronchitis? Start Albuterol Sulfate HFA Aerosol Solution, 108 (90 Base) MCG/ACT, 1-2 puffs, Inhalation, every 4hrs, prn, 1, Refills 1.?? * Procedure Codes: 8 7804 Flu Test- Nasal Swab, Modifiers: QW , 39512 COVID TEST IN HOUSE, Modifiers: QW , 44908 CBC WITH AUTO DIFF, 68670 CAPILLARY BLOOD DRAW, 1036F TOBACCO NON-USER * Follow Up: p rn * Images: Billing Information: * Visit Code: 07945 Office Visit, Est Pt., Level 3. * Procedure Codes: 17701 Flu Test- Nasal Swab. Modifiers: QW 01387 COVID TEST IN HOUSE. Modifiers: QW 12759 CBC WITH AUTO DIFF. 90770 CAPILLARY BLOOD DRAW. 1036F TOBACCO NON-USER. * Electronic signature of JOEY Martínez on 08/08/2025 at 01:05 PM EST Sign off status: Pending * Provider: JOEY Gorman Date: 0 05/14/2025 Generated for Printi ng/Faestelag/eTransmitting on: 1 10/08/2024 01:05 PM EST History and Physical Notes * HPI (History of Present Illness) Category Sub-Category Detail Notes Category Not es ENT/respiratory sore throat Short of Breath Chest Pain cough Fever with chills headache chest congestion nasal congestion dizziness body aches Examination Category Sub-Category Detail Notes Category Not es ENT/Respiratory Oral cavity : erythema without exudate on pharynx Sinuses : tender maxillary sin uses bilaterally Ears: auditory canals norm al bilaterally, TM's WNL Neck : no cervical lymphade nopathy Heart : RRR, normal S1 S2, n o murmurs Lungs: expiratory wheezes, no rales General Appearance: NAD Nose : turbinates red, dominic ested
--- NOTE | 2025-08-08 13:00 | CA_ITS ---
APPROVED REPORT EXAM: Comprehensive 2D, Doppler, and color-flow Echocardiogram Online User Experience Strategist: Jannie Solo, RT(R) Ht: 5 ft 9 in Wt: 210lbs BSA: 2.11 BP: 112/66 mmHg Indications: mitral regurgitation, tricuspid regurgitation, hx palpitations 2D Dimensions LVEF (Britton's) 50.70 % F: 54 - 74 LV Volume 97.30 mL F: 46 - 106 LV Volume Index 46.1 mL/m2 F: 29 - 61 LA Volume 25.20 mL LA Volume Index 11.94 mL/m2 (M/F) 16-34 EF AP4 53.60 % EF AP2 49.9 % EF BP 50.7 % GL Strain -18.7 % M-Mode Dimensions RVDd 2.21 cm (0.9-2.6) LA Diam 2.26 cm (1.9-4.0) LVDd 4.57 cm (3.5-5.7) LVDs 3.39 cm (3.5-5.7) IVSd 0.64 cm (0.6-1.1) PWd 0.61 cm (0.6-1.1) EF (Teich) 50.90% FS 25.80% EDV (Teich) 95.90 mL ESV (Teich) 47.10 mL LV Diastology E Decel Time 163 (160-240 msec) E/A Ratio 1.4 Mitral Valve MV E Max Hemant. 82.0 (40-130 cm/s) MV A Velocity 60.0 (40-130 cm/s) E/A Ratio 1.36 MV PHT 48.0 ms Tricuspid Valve TR P. Velocity 206.00 cm/s RAP Estimate 10.00 mmHg RVSP 27.00 mmHg Left Ventricle The left ventricle is normal size. Left ventricular systolic function is normal. The left ventricular ejection fraction is within the normal range. There is normal left ventricular wall thickness. There is normal LV segmental wall motion. The left ventricular diastolic function is normal. LVEF is 55% Right Ventricle The right ventricle is normal size. The right ventricular systolic function is normal. Atria The left atrium size is normal. The right atrium size is normal. There is no color Doppler evidence of interatrial shunt. Aortic Valve The aortic valve opens well. There is no hemodynamically significant aortic valvular stenosis. No aortic regurgitation is present. Mitral Valve The mitral valve is normal in structure. No evidence of mitral valve stenosis. Trace mitral regurgitation is present. Tricuspid Valve The tricuspid valve leaflets are thin and pliable. Mild tricuspid regurgitation. RVSP is 20-25 mmHg. Pulmonic Valve The pulmonary valve is grossly normal in structure. Trace pulmonic valve regurgitation is present. Great Vessels The aortic root is normal in size. IVC is normal in size and collapses >50% with inspiration. Pericardium There is no pericardial effusion. Other Information Study Quality: Fair Conclusion Normal biventricular systolic function. Mild TR. Electronically signed by : Salina Carcamo MD 08/18/2025 12:59:07
--- OUTSIDE RECORDS SUMMARY | 2025-08-08 13:05 | XMS_ITS | Patient Health Record ---
[facility] Address [address] [facility] [address] [id number] Care Team Providers Care Miscellaneous Machine Operator Name Role Phone Ingrid Fernando Primary Care Provider Gail Oswald Robin Chapa [phone] Allergies Allergen (clinical drug ingredient) Drug/Non Drug [...] 08:13:09 AM Interpretation:No Growth Performing Lab: Notes/Report: CLIA: [id number] Jose Casey MD, Acid Operator [facility] , [address], [place] [address] Test performed by [employer], [employer] Specimen Source Urine - Void Culture, Urine See Below Final Report : No growth Influenza Screen (in house) Reviewed date:05/14/2025 04:27:07 [...] PM Interpretation: Performing Lab: Notes/Report: Result: Neg Reason For Referral No Information Medications Medication SIG (Take, Route, Frequency, Duration) Notes Start Date End Date Status Levothyroxine Sodium 25 MCG 1 tablet in the morning on an empty stomach Orally Once a day Active Metoprolol Succinate 100 MG 1 capsule Or ally Once a day Active Albuterol Sulfate HFA 108 (90 Base) MCG/ACT 1-2 puffs Inhalation every 4 hrs, prn 05/14/2025 Active Bromfed DM 2-30-10 MG/5ML 5-10 mL Orally four times a day, prn 05/14/2025 Active Mounjaro 12.5 MG/0.5ML as directed Subcutaneous Active Magnesium 400 MG as directed Orally Active Azithromycin 250 MG as directed Orally Active Vital Signs Heart Rate 99 /min 05/14/2025 Blood pressure diastolic 76 mm Hg 05/14/2025 Height 67 in 05/14/2025 Blood pressure systolic 112 mm Hg 05/14/2025 Weight 225.6 lbs 05/14/2025 BMI 35.33 kg/m2 05/14/2025 Encounters Encounter Location Date Provider Diagnosis [facility] [address] [place] [id number] 01/21/2025 Gail Oswald UTI (lower urinary tract infection) N39.0 [facility] [address] [place] [id number] 05/14/2025 Ingrid Kassie Acute URI J06.9 and Bronchitis J40 [facility] [address] [place] [id number] 01/22/2025 Gail Oswald Assessments Encounter Date Diagnosis (ICD Code) Assessment Notes Treatment Notes Treatment Clinical Notes Section Notes 01/21/2025 UTI (lower urinary tract infection) (ICD-10 - N39.0) 05/14/2025 Bronchitis (ICD-10 - J40) 05/14/2025 Acute URI (ICD-10 - J06.9) Plan Of Treatment No Information Insurance Providers Payer Name Payer Address Payer Phone Subscriber Number Group Number Insured Name Patient Relationship to Insured Coverage Start Date Coverage End Date [employer] [address] [place] [address] [id number] Sherry Rockwell Self - patient is the insured Medical (General) History Surgical History Surgery Date(Month/Year) ACL Repair - left wisdom teeth extraction cyst removed off ovaries 2017
--- OUTSIDE RECORDS SUMMARY | 2025-08-08 13:05 | XMS_ITS | Patient Health Record ---
Author Organization [facility] Address [address] [facility] [address] [place] [address] Care Team Providers Care Precast Molder Name Role Phone [facility] [phone] Allergies Allergen (clinical drug ingredient) Drug/Non Drug Allergy documented on EMR Reaction Allergy Type Onset Date Status Substance with penicillin structure and antibacterial mechanism of action (substance) Medications: PENICILLINS (uncoded) Unspecified Allergy Active Substance with sulfonamide structure and antibacterial mechanism of action (substance) Medications: SULFA (SULFONAMIDE ANTIBIOTICS) (uncoded) Unspecified Allergy Active sulfamethoxazole / trimethoprim SULFAMETHOXAZOLE-T RIMETHOPRIM Unspecified Drug Allergy 03/24/2015 Active Reason For Referral No Information Medications Medication SIG (Take, Route, Fr equency, Duration) Notes Start Date End Date Status Spironolactone 1 tablet oral QD Active metFORMIN HCl ER 3 tablets oral QD 07/15/2021 Active Sprintec 28 1 tablet oral QD 10/07/2021 Active Cephalexin 1 capsule oral Q8H Active Social History Social History Additional Details Category Social Info Options Details Miscellaneous: Caffeine: CAFFEINE USE: 1 Plan Of Treatment No Information Medical (General) History Medical History History ICD Code Dysmenorrhea Dyspareunia Acne Hirsutism Ovarian Cyst Heavy menses PCOS (polycystic ovarian syndrome) Tachycardia Fibrocystic Breast PCOS Ruputred right c yst MENSTR FLOW: Heavy ABORTIONS: 0 Surgical History Surgery Date(Month/Year) Cystectomy -ovarian Meniscus repair [place] teeth surgery
--- OUTSIDE RECORDS SUMMARY | 2025-08-08 13:05 | XMS_ITS | Data Portability ---
Author Organization GREG ALEX [facility] Address [address] [facility] [address] [place] [address] Care Team Providers Care Saloon Keeper Name Role Phone MISAEL CLARKE Primary Care Provider LAURI ALEXANDER Urologist Assessment Encounter Date Assessment Date Assessment LastModified by Organization Details LastModified Time 05/30/2023 05/30/2023 28 year old fema le with urolithiasis. She was seen at the ER at [facility] on 05/13/[address] Alexander. She had right flank pain and nausea/vomiting. A CT scan showed two 6 mm distal right ureteral stones with hydronephrosis. She had pyelonephritis and was treated for infection. She was discharged home and scheduled for follow-up. She received a call from the ER stating her blood cultures were positive. She went back for IV antibiotic infusions and completed them 05/24/23. A second blood culture was negative. She has been taking Flomax and OTC pain relievers. She has been straining her urine. A second CT scan from 05/29/23 showed a 9 mm right distal ureteral and 5 mm right UVJ stone with right hydronephrosis. A refill for Flomax and new prescription for [place] was sent to her pharmacy. She will continue straining her urine. We discussed that she will likely need surgery to remove the stones. We will contact her with Dr. Alexander's recommendations and plan for right ureteroscopic lithotripsy. Plan: Continue Flomax and train urine. Use pain medication as needed. Schedule surgery for stones. evickers Not available 05/30/2023 08:47:52 06/01/2023 06/01/2023 SURGERY DATE: 06/01/2023 PREOPERATIVE DIAGNOSIS: Right ureteral stones. POSTOPERATIVE DIAGNOSIS: Right ureteral stones. PROCEDURES: 1. Cystoscopy with right ureteroscopy, laser lithotripsy, basket stone extraction, and stent placement. 2. Fluoroscopy, supervision and interpretation. SURGEON: Lauri Alexander MD ANESTHESIA: General. SPECIMENS: Stone fragments for analysis. FINDINGS: Normal-appearing urethra and bladder. Right ureteroscopy revealed 2 large stones in the distal ureter with proximal hydronephrosis. There was proper placement of the stent. INDICATIONS:A 28-year-old female with a history of urolithiasis. She was admitted to [facility] for 2 right ureteral stones as noted on the CT scan. She was treated for pyelonephritis. She felt better and went home. A followup CT scan on 05/29/[address] [facility] showed persistent 9 mm and 5 mm stones in the right distal ureter. She is here for laser lithotripsy. DRAINS: Right ureteral stent, 6-Montenegrin x 24 cm, strings intact. ESTIMATED BLOOD LOSS: None. COMPLICATIONS: None. OPERATIVE NOTE: After informed consent, the patient was taken to the operating room in stable condition. Anesthesia was induced without complications. She was placed in a lithotomy position. The genitalia and groins were prepped and draped. A time-out was taken to identify the correct patient, procedures, and side. A 22-Montenegrin cystoscope was placed per urethra into the bladder. Inspection revealed a normal bladder. A 0.035 hydrophilic guidewire was inserted into the right ureter and advanced up to the level of the kidney under fluoroscopy guidance without difficulty. The cystoscope was exchanged for a semi-rigid ureteroscope. This was advanced into the right ureter and the stones were readily identified and pushed back to allow more room. A 200 micron holmium laser was used to fragment the stones into several pieces. A 1.9-Montenegrin ZeroTip basket was used to extract the fragments into the bladder. Followup ureteroscopy into the middle and upper ureter showed no other sizable stone fragments. The ureteroscope was withdrawn and removed. The cystoscope was placed over the wire into the bladder. A 6-Montenegrin x 24 cm double-J ureteral stent was passed over the wire up to the level of the kidney under fluoroscopy guidance. The wire was removed and there was adequate curl in the kidney and in the bladder. The strings were left intact. The bladder was flushed of stone fragments. The bladder was drained. The cystoscope was removed. The strings were tied and cut shorter and tucked into the vagina. Lidocaine jelly was placed per urethra. She was awakened from anesthesia and taken to recovery room in satisfactory condition. DISPOSITION: She will be discharged to home in the care of her when stable and able to void. She was instructed to remove the stent and strings in 5 days on Monday and may come to the office if needed. She has tamsulosin and hydrocodone available. She has scheduled followup in about 4 weeks. [email or web address] Not available 06/09/2023 07:57:48 07/10/2023 07/10/2023 28 year old fema le with urolithiasis. She was seen at the ER at [facility] on 05/13/[address] Alexander. She had right flank pain and nausea/vomiting. A CT scan showed two 6 mm distal right ureteral stones with hydronephrosis. She had pyelonephritis and was treated for infection. She was discharged home and scheduled for follow-up. She received a call from the ER stating her blood cultures were positive. She went back for IV antibiotic infusions and completed them 05/24/23. A second blood culture was negative. She has been taking Flomax and OTC pain relievers. She has been straining her urine. A second CT scan from 05/29/23 showed a 9 mm right distal ureteral and 5 mm right UVJ stone with right hydronephrosis. She will continue kidney stone diet as discussed. She is increasing her water intake. She will follow-up as needed. Plan: evickers Not available 07/10/2023 15:08:25 Plan of Treatment Reminders Order Date Submit Date Provider Last Modified By Organization Details Last Modified Time Details Appointments None recorded. Lab urinalysis, dipstick 2022 023 evickers Not available 15:17:33 urinalysis, dipstick 2022 023 evickers Not available 08:50:16 Referral None recorded. Procedures None recorded. Surgeries None recorded. Imaging None recorded. Medication Orders tamsulosin 0.4 mg capsule 2022 023 [email or web address] [facility], [address], [address], 3 08:44:50 hydrocodone 5 mg-acetamin ophen 325 mg tablet [email or web address] [facility], [address], [address], 3 08:44:50 Patient TargetsNo targets recorded. Patient InstructionsNo instructions recorded. Reason for Referral None Reported. Results Created Date Observation Date Name Description Value Unit Range Abnormal Flag Note LastModifiedBy Organization Detail LastModifiedTime 05/30/2005/30/2023 urina lysis , dipst ick Unknown Analyte Yellow Not Available [facility] [address], [address], 05/30/2023 08:44:50 05/30/20 23 05/30/2023 urina lysis , dipst ick Unknown Analyte Clear Not Available [facility] [address], [address], 05/30/2023 08:44:50 05/30/20 23 05/30/2023 urina lysis , dipst ick Unknown Analyte 1.020 Not Available [facility] [address], [address], 05/30/2023 08:44:50 05/30/20 23 05/30/2023 urina lysis , dipst ick Unknown Analyte 5.0 Not Available [facility] [address], [address], 05/30/2023 08:44:50 05/30/20 23 05/30/2023 urina lysis , dipst ick Unknown Analyte Negati ve Not Available [address], [address], 05/30/2023 08:44:50 05/30/20 23 05/30/2023 urina lysis , dipst ick Unknown Analyte Negati ve Not Available [facility] [address] [place], [address], 05/30/2023 08:44:50 05/30/20 23 05/30/2023 urina lysis , dipst ick Unknown Analyte Negati ve Not Available [facility] [address] [place], [address], 05/30/2023 08:44:50 05/30/2005/30/2023 urina lysis , dipst ick Unknown Analyte Normal Not Available [facility] [address] [place], [address], 05/30/2023 08:44:50 05/30/20 23 05/30/2023 urina lysis , dipst ick Unknown Analyte Negati ve Not Available [facility] [address] [place], [address], 05/30/2023 08:44:50 05/30/20 23 05/30/2023 urina lysis , dipst ick Unknown Analyte Normal Not Available [facility] [address] [place], [address], 05/30/2023 08:44:50 05/30/20 23 05/30/2023 urina lysis , dipst ick Unknown Analyte Negati ve Not Available [facility] [address] [place], [address], 05/30/2023 08:44:50 05/30/20 23 05/30/2023 urina lysis , dipst ick Unknown Analyte Negati ve Not Available [facility] [address] [place], [address], 05/30/2023 08:44:50 05/30/20 23 05/30/2023 urina lysis , dipst ick Unknown Analyte Clean Catch Not Available [facility] [place] [place] [address] [place] [address], [address], 05/30/2023 08:44:50 05/30/20 23 05/30/2023 urina lysis , dipst ick Unknown Analyte Visual Not Available [facility] [address] [place] [address], [address], 05/30/2023 08:44:50 06/01/20 23 06/01/2023 UA WITH CULTU RE IF INDIC ATED color Pale yellow normal Not Available [facility] [address] [place] [address], [address], 06/01/2023 17:48:36 06/01/20 23 06/01/2023 UA WITH CULTU RE IF INDIC ATED appearance Clear normal Not Available [facility] [address] [place] [address], [address], 06/01/2023 17:48:36 06/01/20 23 06/01/2023 UA WITH CULTU RE IF INDIC ATED glucose Normal mg/dL normal normal Not Available [facility] [address] [place] [address], [address], 06/01/2023 17:48:36 06/01/20 23 06/01/2023 UA WITH CULTU RE IF INDIC ATED bilirubin Negati ve mg/dL negati ve normal Not Available [facility] [address] [place] [address], [address], 06/01/2023 17:48:36 06/01/20 23 06/01/2023 UA WITH CULTU RE IF INDIC ATED ketone Negati ve mg/dL negati ve normal Not Available [facility] [address] [place] [address], [address], 06/01/2023 17:48:36 06/01/20 23 06/01/2023 UA WITH CULTU RE IF INDIC ATED specific gravity 1.008 1.003- 1.035 normal Not Available [facility] [address] [place] [address], [address], 06/01/2023 17:48:36 06/01/20 23 06/01/2023 UA WITH CULTU RE IF INDIC ATED blood 25 /uL negati ve abnormal Not Available [facility] [address] [place] [address], [address], 06/01/2023 17:48:36 06/01/20 23 06/01/2023 UA WITH CULTU RE IF INDIC ATED pH 5 5.0 - 8.0 normal Not Available [facility] [address] [place] [address], [address], 06/01/2023 17:48:36 06/01/20 23 06/01/2023 UA WITH CULTU RE IF INDIC ATED protein Negati ve mg/dL negati ve normal Not Available [facility] [address] [place] [address], [address], 06/01/2023 17:48:36 06/01/20 23 06/01/2023 UA WITH CULTU RE IF INDIC ATED urobilinogen Normal mg/dL normal normal Not Available [facility] [address] [place] [address], [address], 06/01/2023 17:48:36 06/01/20 23 06/01/2023 UA WITH CULTU RE IF INDIC ATED nitrite Negati ve negati ve normal Not Available [facility] [address] [place] [address], [address], 06/01/2023 17:48:36 06/01/20 23 06/01/2023 UA WITH CULTU RE IF INDIC ATED leukocyte esterase 500 /uL negati ve abnormal Not Available [facility] [address] [place] [address], [address], 06/01/2023 17:48:36 06/01/20 23 06/01/2023 UA WITH CULTU RE IF INDIC ATED WBC, urine > 30 0-5/hp f abnormal Occ. WBC clump s noted . Not Available [facility] [address] [place] [address], [address], 06/01/2023 17:48:36 06/01/20 23 06/01/2023 UA WITH CULTU RE IF INDIC ATED RBC, urine 3-10 0-2/hp f abnormal Not Available [facility] [address] [place] [address], [address], 06/01/2023 17:48:36 06/01/20 23 06/01/2023 UA WITH CULTU RE IF INDIC ATED squamous epi. cells 0-5 0-5/hp f normal Not Available [facility] [address] [place] [address], [address], 06/01/2023 17:48:36 06/01/20 23 06/01/2023 UA WITH CULTU RE IF INDIC ATED bacteria 2+ /hpf abnormal Not Available [facility] [address] [place] [address], [address], 06/01/2023 17:48:36 06/01/20 23 06/01/2023 UA WITH CULTU RE IF INDIC ATED reflex culture see below normal Resul ts indic ate a urina ry tract infec tion. Cultu re added . Not Available [facility] [address] [place] [address], [address], 06/01/2023 17:48:36 06/01/20 23 06/06/2023 URINE CULTU RE urine culture COLONY COUNT: > 100,00 0 CFU/ML Three or more isolat es; mixed skin marie. Not Available [facility] [address] [place] [address], [address], 06/06/2023 09:19:35 06/01/20 23 06/01/2023 urina lysis panel , auto Unknown Analyte Clean Catch Not Available [facility] [address] [place] [address], [place], [address], 06/01/2023 14:57:08 06/01/20 23 06/01/2023 urina lysis panel , auto Unknown Analyte Yellow Not Available [facility] [address] [place] [address], [address], 06/01/2023 14:57:08 06/01/20 23 06/01/2023 urina lysis panel , auto Unknown Analyte Slight ly Hazy Not Available [facility] [address] [place] [address], [address], 06/01/2023 14:57:08 06/01/20 23 06/01/2023 urina lysis panel , auto Unknown Analyte 1.[address] [facility] [address] [place] [address], [address], 06/01/2023 14:57:08 06/01/20 23 06/01/2023 urina lysis panel , auto Unknown Analyte 1.003- 1.035 Not Available [facility] [address] [place] [address], [place], [address], 06/01/2023 14:57:08 06/01/20 23 06/01/2023 urina lysis panel , auto Unknown Analyte 5.[address] [facility] [address] [place] [address], [address], 06/01/2023 14:57:08 06/01/20 23 06/01/2023 urina lysis panel , auto Unknown Analyte 5.0-8. 0 Not Available [facility] [address] [place] [address], [address], 06/01/2023 14:57:08 06/01/20 23 06/01/2023 urina lysis panel , auto Unknown Analyte 500 Madisyn/ul (++) Not Available [facility] [address] [place] [address], [place], [address], 06/01/2023 14:57:08 06/01/20 23 06/01/2023 urina lysis panel , auto Unknown Analyte Negati ve Not Available [facility] [address] [place] [address], [place], [address], 06/01/2023 14:57:08 06/01/20 23 06/01/2023 urina lysis panel , auto Unknown Analyte Negati ve Not Available [facility] [address] [place] [address], [place], [address], 06/01/2023 14:57:08 06/01/20 23 06/01/2023 urina lysis panel , auto Unknown Analyte Negati ve Not Available [facility] [address] [place] [address], [place], [address], 06/01/2023 14:57:08 06/01/20 23 06/01/2023 urina lysis panel , auto Unknown Analyte Negati ve Not Available [facility] [address] [place] [address], [place], [address], 06/01/2023 14:57:08 06/01/20 23 06/01/2023 urina lysis panel , auto Unknown Analyte Negati ve Not Available [facility] [address] [place] [address], [address], 06/01/2023 14:57:08 06/01/2006/01/2023 urina lysis panel , auto Unknown Analyte Normal Not Available [facility] [address] [place] [address], [place], [address], 06/01/2023 14:57:08 06/01/20 23 06/01/2023 urina lysis panel , auto Unknown Analyte Normal Not Available [facility] [address] [place] [address], [place], [address], 06/01/2023 14:57:08 06/01/20 23 06/01/2023 urina lysis panel , auto Unknown Analyte Negati ve Not Available [facility] [address] [place] [address], [address], 06/01/2023 14:57:08 06/01/20 23 06/01/2023 urina lysis panel , auto Unknown Analyte Negati ve Not Available [facility] [address] [place] [address], [address], 06/01/2023 14:57:08 06/01/20 23 06/01/2023 urina lysis panel , auto Unknown Analyte Normal Not Available [facility] [address] [place] [address], [address], 06/01/2023 14:57:08 06/01/20 23 06/01/2023 urina lysis panel , auto Unknown Analyte Normal 1 mg/dl Not Available [facility] [address] [place] [address], [place], [address], 06/01/2023 14:57:08 06/01/20 23 06/01/2023 urina lysis panel , auto Unknown Analyte Negati ve Not Available [facility] [address] [place] [address], [address], 06/01/2023 14:57:08 06/01/20 23 06/01/2023 urina lysis panel , auto Unknown Analyte Negati ve Not Available [facility] [address] [place] [address], [address], 06/01/2023 14:57:08 06/01/20 23 06/01/2023 urina lysis panel , auto Unknown Analyte Negati ve Not Available [facility] [address], [address], 06/01/2023 14:57:08 06/01/20 23 06/01/2023 urina lysis panel , auto Unknown Analyte Negati ve Not Available [facility] [address], [address], 06/01/2023 14:57:08 06/02/20 23 06/09/2023 STONE ISSA SIS composition SEE BELOW normal Calci um Oxala te Dihyd rate (Wedd ellit e) 30% Calci um Oxala te Monoh ydrat e (Whew ellit e) 35% Carbo daniel Apati te (Dahl lite) 35% See Note 1 Not Available [facility] [address] [place] [address], [address], 06/09/2023 16:23:47 06/02/20 23 06/09/2023 STONE ISSA SIS weight 0.088 g normal Note 1 This test was devel oped and its issa tical perfo rmanc e elbert cteri stics have been deter mined by [facility]. It has not been clear ed or appro sharon by the FDA. This assay has been valid ated pursu ant to the CLIA regul ation s and is used for clini camacho purpo ses. Not Available [facility] [address] [place], [address], 06/09/2023 16:23:47 07/10/20 23 07/10/2023 urina lysis , dipst ick Unknown Analyte Yellow Not Available [facility] [address] [place], [address], 07/10/2023 15:04:56 07/10/20 23 07/10/2023 urina lysis , dipst ick Unknown Analyte Clear Not Available [facility] [address] [place], [address], 07/10/2023 15:04:56 07/10/2007/10/2023 urina lysis , dipst ick Unknown Analyte 1.015 Not Available [facility] [address] [place], [address], 07/10/2023 15:04:56 07/10/2007/10/2023 urina lysis , dipst ick Unknown Analyte 5.0 Not Available [facility] [address] [place], [address], 07/10/2023 15:04:56 07/10/2007/10/2023 urina lysis , dipst ick Unknown Analyte Negati ve Not Available [facility] [address] [place] [address], [address], 07/10/2023 15:04:56 07/10/2007/10/2023 urina lysis , dipst ick Unknown Analyte Negati ve Not Available [facility] [address] [place], [address], 07/10/2023 15:04:56 07/10/2007/10/2023 urina lysis , dipst ick Unknown Analyte Negati ve Not Available [facility] [address] [place] [address], [address], 07/10/2023 15:04:56 07/10/2007/10/2023 urina lysis , dipst ick Unknown Analyte Normal Not Available [facility] [address] [place], [address], 07/10/2023 15:04:56 07/10/2007/10/2023 urina lysis , dipst ick Unknown Analyte Negati ve Not Available [facility] [address] [place] [address], [address], 07/10/2023 15:04:56 07/10/2007/10/2023 urina lysis , dipst ick Unknown Analyte Normal Not Available [facility] [address], [address], 07/10/2023 15:04:56 07/10/20 23 07/10/2023 urina lysis , dipst ick Unknown Analyte Negati ve Not Available [address], [address], 07/10/2023 15:04:56 07/10/20 23 07/10/2023 urina lysis , dipst ick Unknown Analyte Negati ve Not Available [address], [address], 07/10/2023 15:04:56 07/10/2007/10/2023 urina lysis , dipst ick Unknown Analyte Clean Catch Not Available [address], [address], 07/10/2023 15:04:56 07/10/2007/10/2023 urina lysis , dipst ick Unknown Analyte Visual Not Available [address], [address], 07/10/2023 15:04:56 05/29/2005/29/2023 CT, abdom en + pelvi s, w/o contr ast [place] [address] [facility] [place] [address] Patien t Name: LLOIS Robin t : 996 Patise[address] t 59 Orderi ng Provid er: LIYA Hoskins EXAM DATE: 2022 EXAM: CT R/O KIDNEY STONES (A/P W/O) CLINIC AL INFORM ATION: Histor y of kidney stones . TECHNI QUE: Multip le axial CT images of the abdome n and pelvis were obtain ed withou t inject ion of IV contra st using the urinar y stone protoc ol. COMPAR EZRA: None. FINDIN GS ON CT ABDOME N: LOWER THORAX : Lung bases are clear. No obviou s cardia c abnorm ality URINAR Y TRACT: Left kidney is normal withou t eviden ce of hydron ephros is or stone. Right hydron ephros is and hydrou reter is seen due to the presen ce of 2 obstru cting stones in the right distal ureter . The proxim al stone measur es 9 mm in length and 820 Hounsf ield units in attenu ation. The distal stone which is at the right UVJ measur es 5 mm in size and 700 Hounsf ield units in attenu ation. OTHER UPPER ABDOMI NAL ORGANS : Liver, gallbl adder, spleen , pancre as, and adrena ls are normal within the limits on interp retati on impose d by the absenc e of IV contra st. BOWEL AND MESENT HARINI: Stomac h, small bowel and colon are normal . No mesent adithya lympha denopa thy or perito rosetta free fluid. RETROP ERITON EUM: Limite d evalua tion due to absenc e of IV contra st. Aorta, IVC and their branch es are normal in calibe r. No retrop eriton eal lympha denopa thy. ABDOMI NAL WALL AND SKELET AL STRUCT URES: Normal . FINDIN GS ON CT PELVIS : PELVIC CAVITY : Urinar y bladde r and rectos igmoid are normal . Uterus and ovarie s appear normal . No pelvic or inguin al lympha denopa thy, mass or fluid. MUSCUL OSKELE CORIN STRUCT URES: Normal . COMBIN ED IMPRES JAZMIN: Obstru cting stones in the right distal ureter causin g right hydron ephros is and hydrou reter. Interp reted By: Linh Watts MD Electr onical ly Signed By: Linh Watts MD on 023 4:32 PM [facility] [address] , [place], [address], 05/30/2023 12:16:22 Result Notes None recorded. Procedures Surgical History Date Name Laterality Status Provider Name and Address Organization Details Recorded Time 06/01/2023 Kidney Stones completed LAURI ALEXANDER MD [address] [place] [address], [address], [facility] 06/01/2023 17:18:56 Imaging Results None recorded. Procedure Notes None recorded. Medical Equipment None Reported. Allergies Allergen ID Allergen Name Allergen Category Reaction Reaction Severity Criticality Documentation Date Start Date Code Code System Note Provider Name and Address Organization Details Recorded Time 147336 Substance with sulfonami de structure and antibacte rial mechanism of action (substanc e) medicatio n Not available Not available Not available 05/30/2023 82932 8003 SNOMED [facility] 3 08:27:37 587514 Product containin g penicilli n (product) medicatio n Not available Not available Not available 05/30/2023 90393 8001 SNOMED [facility] 3 08:27:46 811274 metformin medicatio n Not available Not available Not available 05/30/2023 6809 RxNorm [facility] 3 08:27:56 Medications Name Sig Start Date Stop Date Status Note LastModified by Organization Details LastModified Time metoprolol succinate ER 50 mg tablet,exten ded release 24 hr Take 1 tablet every day by oral route. active Not Available Not Available No t Available hydrocodone 5 mg-acetamino phen 325 mg tablet Take 1 tablet every 6 hours by oral route as directed for 5 days. 2022 active Not Available Not Available Not Avai lable tamsulosin 0.4 mg capsule Take 1 capsule every day by oral route as directed for 30 days. 2022 active Not Available Not Available Not Avai lable magnesium active Not Available Not Allyson ilable Not Available Vitamin D3 active Not Available Not Av ailable Not Available levothyroxin e (bulk) active Not Available Not Available Not Available Wegovy 1.7 mg/0.75 mL subcutaneous pen injector Inject by subcutaneou s route. active Not Available Not Available No t Available Vitals Date Recorded Body height Body mass index (BMI) Body weight Provider Name and Address Organization Details Last Updated DateTime 05/30/2023 170.18 cm 36 kg/m2 084016.25 g Therese Jamil [facility] 05/30/2023 08:42:51 Date Recorded Body height Body mass index (BMI) Body weight Provider Name and Address Organization Details Last Updated DateTime 07/10/2023 170.18 cm 36 kg/m2 431645.25 g Therese Jamil [facility] 07/10/2023 14:31:27 Social History Question Answer Notes LastModified by Organizat ion Details LastModified Time Tobacco Smoking Status Never Smoker Therese Jamil [facility] 05/30/2023 08:35:34 What Is Your Relationship Status? Information not available 05/30/2023 Sex: Unknown Functional Status Question Answer Note LastModified by Organization D etails LastModified Time What is your level of alcohol consumption? None Information not available 05/30/2023 Are you currently employed? 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 Family History Relationship Description Onset Age of this Age Resolved Age Notes LastModified by Organization Details LastModified Time Unspecified Relation Family history of malignant neoplasm Not available 2022 08:35:01 Unspecified Relation Diabetes mellitus Not available 2022 08:35:15 Unspecified Relation Kidney stone Not available 08:35:22 Medical History Condition Response Kidney Stones Y Urinary Tract Infection Y Gynecological HistoryNo gynecological history recorded. Obstetrics History GPAL:G 2 P 2 0 0 0 Type Value Full Term 2 Total 2 Past Encounters Encounter ID Performer Location Encounter Start Date Encounter Closed Date Diagnosis/Indication Diagnosis SNOMED-CT Code Diagnosis ICD10 Code Diagnosis IMO Codes Diagnosis Note [id number] BOWEN BRUNNER APRN UROLOGY [facility] CL[facility] [address] [place] [address] 05/30/2023 07:58:13 05/30/2023 09:23:57 Ureteric stone 54397524 N20.1 [id number] LAURI ALEXANDER MD SURGERY SCHEDULE [address] [place] [address] 06/01/2023 13:53:36 06/01/2023 13:54:37 [id number] BOWEN BRUNNER APRN UROLOGY [facility] [address] [place] [address] 07/10/2023 14:26:49 07/11/2023 04:11:21 History of calculus of kidney 349236668 Z87.442 Health Concerns Section Related Observation LastModified by Organization Detai ls LastModified Time None Recorded Concern Status LastModified by Organization Details LastModified Time None Recorded Advance Directives Directive None Recorded Payers Insurance Date Sequence Insurance Name Policy Number Policy Post Covered Member ID Post Member ID Guarantor Name 01/01/2024 1 [place] [id number] [facility] [id number] [facility] Notes Date Note Type Note Provider Name and Address Organization Details Recorded Time 05/30/2023 text/html 28-year-old female with urolithiasis. She has a history of PCOS and ovarian cysts. She was seen at the ER in [facility] several years ago and was told she had about 12 stones in her kidneys. She ahs passed at least one stone since then. She went to the ER at [facility] on 05/13/2023 with complaints of right flank pain radiating to the front and nausea with vomiting. A CT scan showed two 6 mm distal uretral stones with right hydronephrosis. She was also found to have pyelonephritis. She was treated with antibiotics. She saw Dr. Alexander in the ER and opted to schedule surgery as an outpatient. A few days after she was discharged, she was notified by the ER that blood cultures were positive. She went back for IV antibiotic infusions and to recheck blood cultures. Blood cultures were negative with recheck. She had right flank pain yesterday and the day before. She had gross hematuria yesterday. She has been using Tylenol and ibuprofen. She ran out of Flomax 2 days ago. She has been straining her urine. A repeat CT scan on 05/29/23 showed a right distal ureteral stone measuring 9 mm and 5 mm right UVJ stone with hydronephrosis. She has never been a smoker. 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 BOWEN BRUNNER, [employer]APE [employer] [address] [place], [address], [facility] 05/30/2023 08:50:21 07/10/2023 text/html 28-year-old female with urolithiasis. She has a history of PCOS and ovarian cysts. She was seen at the ER in [facility] several years ago and was told she had about 12 stones in her kidneys. She has passed at least one stone since then. She went to the ER at [facility] on 05/13/2023 with complaints of right flank pain radiating to the front and nausea with vomiting. A CT scan showed two 6 mm distal uretral stones with right hydronephrosis. She was also found to have pyelonephritis. She was treated with antibiotics. She saw Dr. Alexander in the ER and opted to schedule surgery as an outpatient. A few days after she was discharged, she was notified by the ER that blood cultures were positive. She went back for IV antibiotic infusions and to recheck blood cultures. Blood cultures were negative with recheck. She had right flank pain yesterday and the day before. She had gross hematuria yesterday. She has been using Tylenol and ibuprofen. She ran out of Flomax 2 days ago. She has been straining her urine. A repeat CT scan on 05/29/23 showed a right distal ureteral stone measuring 9 mm and 5 mm right UVJ stone with hydronephrosis. She has never been a smoker. 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 HPI: She returns today for follow-up after right ureteroscopy and stone extraction for a 5 mm and 9mm distal right ureteral stones. She was able to remove her ureteral stent without complication. She denies dysuria or hematuria. She feels well. BOWEN BRUNNER, DIDI [address] [place], [address], [facility] 07/10/2023 15:17:47 OBGyn Episode No OBEpisode recorded.
--- OUTSIDE RECORDS SUMMARY | 2025-08-08 13:05 | XMS_ITS | Data Portability ---
Author Organization [facility] Address [address] [address] Assessment No assessment recorded. Plan of Treatment Reminders Order Date Submit Date Provider Last Modified By Organization Details Last Modified Time Details Appointments FOLLOW UP 30 2024 01:00P Perez Watson PA-C Not available Not available Not available Lab HbA1c (hemoglob in A1c), blood [email or web address], [place], [address], 03/04/2025 14:50:40 Referral None recorded. Procedures None recorded. Surgeries None recorded. Imaging None recorded. Medication Orders Mounjaro 10 mg/0.5 mL subcutane ous pen injector 2024 025 [facility] 591, [address], [address], 07/25/2025 10:20:59 Mounjaro 7.5 mg/0.5 mL subcutane ous pen injector 2023 024 [email or web address] [facility], [address] [place] [address], [address], 07/25/2025 10:20:53 Patient TargetsNo targets recorded. Patient Instructions Encounter Date Encounter Id Patient Instructions Last Modified By Organization Details Last Modified Time 08/06/2024 [id number] learning about healthy weight [email or web address] Not available 08/06/2024 12:45:42 03/04/2025 [id number] learning about type 2 diabetes [email or web address] Not available 03/04/2025 14:50:40 type 2 diabetes: care instructions [email or web address] Not available 03/04/2025 14:50:40 Reason for Referral None Reported. Results Created Date Observation Date Name Description Value Unit Range Abnormal Flag Note LastModifiedBy Organization Detail LastModifiedTime 03/04/20 25 03/04/2025 HbA1c (hemo globi n A1c), blood HbA1c 4.9 % Not Available [facility] [address] [facility], [place], [address], 03/04/2025 13:25:49 Result Notes None recorded. Problems Name Problem SNOMED Code Status Onset Date Resolution Date Notes Provider Name and Address Organization Details Recorded Time Diabetes mellitus 57781569 Active 2023 JOEY Coburn [address] [place] [address], [address], [employer] 12:38:40 Essential hypertension 20616910 Active 2023 JOEY Coburn [address] [place] [address], [address], [employer] 12:38:45 Hypothyroidi sm 35420985 Active 2023 JOEY Coburn [address] [place] [address], [address], [employer] 12:38:47 Generalized anxiety disorder 56825325 Active 2023 JOEY Coburn [address] [place] [address], [address], [employer] 12:38:43 Nausea and vomiting 17704704 Completed 202304/03/[address]25 [address]EY Coburn [address] [place] [address], [address], [employer] 12:38:50 Problem Notes None recorded. Procedures Surgical History Date Name Laterality Status Provider Name and Address Organization Details Recorded Time 06/03/202 5 Diabetic Foot Screen completed JOEY Coburn [address] [place], [address], [employer] 03/04/2025 15:18:15 4 Date of Last Pap Smear completed Misohoni [employer] 08/06/2024 10:52:03 Ovarian Cystectomy completed [facility] [employer] [facility] 08/06/2024 10:50:39 lithotripsy completed [facility] [employer] [facility] [employer] 08/06/2024 10:51:06 repair of meniscus completed Misohoni [facility] 08/06/2024 10:51:53 Imaging Results None recorded. Procedure Notes None recorded. Medical Equipment None Reported. Allergies Allergen ID Allergen Name Allergen Category Reaction Reaction Severity Criticality Documentation Date Start Date Code Code System Note Provider Name and Address Organization Details Recorded Time 58680 Substance with sulfonami de structure and antibacte rial mechanism of action (substanc e) medicatio n Not available Not available Not available 08/06/2024 59258 8003 SNOMED [facility] [employer] 4 10:43:14 89663 Product containin g penicilli n (product) medicatio n Not available Not available Not available 08/06/2024 43001 8001 SNOMED [employer] [employer] 4 10:43:21 14247 metformin medicatio n Not available Not available Not available 08/06/2024 6809 RxNorm [employer] [employer] 4 10:43:27 Medications Name Sig Start Date Stop Date Status Note LastModified by Organization Details LastModified Time clindamycin HCl 300 mg capsule 08/06 completed Not Available Not Available Not Available azithromyci n 250 mg tablet TAKE 2 TABLETS BY MOUTH ON DAY 1, AND THEN TAKE 1 TABLET BY MOUTH ONCE A DAY ON DAY 2 THROUGH DAY 5 08/03 completed Not Available Not Available Not Available metoprolol succinate ER 100 mg tablet,exte nded release 24 hr TAKE 1 TABLET BY MOUTH ONCE DAILY active Not Available Not Available No t Available terconazole 0.8 % vaginal cream 08/06 completed Not Available Not Available Not Available ciprofloxac in 250 mg tablet 03/04 completed Not Available Not Available Not Available ciprofloxac in 500 mg tablet TAKE 1 TABLET BY MOUTH TWICE DAILY FOR 5 DAYS 08/06 completed Not Available Not Available Not Available ondansetron 8 mg disintegrat ing tablet Place 1 tablet 3 times a day by transling ual route as needed for 30 days, for nausea/vo miting. 03/04 completed Not Available Not Available Not Available levothyroxi ne 25 mcg tablet TAKE 1 TABLET BY MOUTH ONCE DAILY active Not Available Not Available No t Available magnesium oxide 400 mg (241.3 mg magnesium) tablet TAKE 1 TABLET BY MOUTH ONCE DAILY active Not Available Not Available No t Available tamsulosin 0.4 mg capsule 03/04 completed Not Available Not Available Not Available hydroxyzine HCl 25 mg tablet TAKE 1 TABLET BY MOUTH TWICE DAILY NEEDED FOR ANXIETY active Not Available Not Available No t Available methylpredn isolone 4 mg tablets in a dose pack 08/06 completed Not Available Not Available Not Available albuterol sulfate HFA 90 mcg/actuati on aerosol inhaler INHALE 1 TO 2 PUFFS BY MOUTH EVERY 4 HOURS NEEDED active Not Available Not Available No t Available cefdinir 300 mg capsule 08/06 completed Not Available Not Available Not Available spironolact one 50 mg tablet TAKE 1 TABLET BY MOUTH ONCE DAILY 03/04 completed Not Available Not Available Not Available nitrofurant oin monohydrate /macrocryst als 100 mg capsule TAKE 1 CAPSULE BY MOUTH TWICE DAILY WITH FOOD 03/04 completed Not Available Not Available Not Available Vitamin D3 125 mcg (5,000 unit) tablet Take 1 tablet every day by oral route. active Not Available Not Available No t Available Wegovy 1.7 mg/0.75 mL subcutaneou s pen injector INJECT 1.7 MG SUBCUTANE OUSLY WEEKLY; ADMINISTE R 13 THROUGH 16 WEEKS OF THERAPY 08/06 completed Not Available Not Available Not Available Ozempic 2 mg/dose (8 mg/3 mL) subcutaneou s pen injector INJECT 2 MG SUBCUTANE OUSLY ONCE A WEEK 08/06 completed Not Available Not Available Not Available Mounjaro 7.5 mg/0.5 mL subcutaneou s pen injector INJECT 1 PEN SUBCUTANE OUSLY ONCE A WEEK 07/25 completed Not Available Not Available Not Available Mounjaro 5 mg/0.5 mL subcutaneou s pen injector INJECT 1 SYRINGE SUBCUTANE OUSLY ONCE A WEEK 03/04 completed Not Available Not Available Not Available Mounjaro 15 mg/0.5 mL subcutaneou s pen injector INJECT 1 PEN SUBCUTANE OUSLY ONCE A WEEK active Not Available Not Available No t Available Mounjaro 10 mg/0.5 mL subcutaneou s pen injector INJECT 1 PEN-INJEC TOR SUBCUTANE OUSLY ONCE A WEEK 07/25 completed Not Available Not Available Not Available Mounjaro 12.5 mg/0.5 mL subcutaneou s pen injector INJECT 1 SYRINGE SUBCUTANE OUSLY ONCE A WEEK active Not Available Not Available No t Available Mounjaro 2.5 mg/0.5 mL subcutaneou s pen injector active Not Available Not Available Not Available Dexcom G7 Sensor device USE DIRECTED 08/06 completed Not Available Not Available Not Available Vitals Date Recorded Body height Body mass index (BMI) Body weight Oxygen saturation Oxygen saturation in Arterial blood by Pulse oximetry Heart rate Body temperature Systolic And Diastolic Provider Name and Address Organization Details Last Updated DateTime 5 172.72 cm 34.5 kg/m2 935485. 19 g 98 % 98 % 90 /min 98.2 [degF] 110/76 mm[Hg] [employer] 5 13:22:02 Date Recorded Body weight Body mass index (BMI) Body height Heart rate Oxygen saturation Oxygen saturation in Arterial blood by Pulse oximetry Systolic And Diastolic Provider Name and Address Organization Details Last Updated DateTime 4 267594. 93 g 34.8 kg/m2 172.72 cm 80 /min 97 % 97 % 112/78 mm[Hg] [employer]. 4 10:43:04 Social History Question Answer Notes LastModified by Organizat ion Details LastModified Time Tobacco Smoking Status Former Smoker Anum [facility] [employer] 08/06/2024 10:48:18 Do You Have An Advance Directive? No Information not available 08/06/2024 Is Your Home Air Conditioned? Yes Information not available 08/06/2024 Are You Blind Or Do You Have Difficulty Seeing? No Information not available 08/06/2024 What Is Your Level Of Caffeine Consumption? Moderate Information not available 08/06/2024 Have You Been To An Area Known To Be High Risk For COVID-19? No Information not available 08/06/2024 Are You Deaf Or Do You Have Serious Difficulty Hearing? No Information not available 08/06/2024 What Type Of Diet Are You Following? DIABETIC Information not available 08/06/2024 What Is The Highest Grade Or Level Of School You Have Completed Or The Highest Degree You Have Received? [id number] Information not available 08/06/2024 Who Is Your Employer? [employer] Information not available 08/06/2024 Have There Been Any Changes To Your Family Or Social Situation? No Information no t available 08/06/2024 When Did You Quit Smoking? 11-15yearssi ncelastcigar ette Stop Date 2014 Information not available 03/04/2025 Which Of Your Hands Is Dominant? Right Information not available 08/06/2024 Do You Have A Medical Power Of Zumba Instructor? No Information not available 08/06/2024 What Was The Date Of Your Most Recent Tobacco Screening? 03/04/2025 Information not available 03/04/2025 Do You Use Protection During Sex? No Information not available 08/06/2024 What Is Your Relationship Status? Information not available 08/06/2024 Do You Use Your Seat Belt Or Car Seat Routinely? Yes Information not available 08/06/2024 Are You Sexually Active? Yes Information not available 08/06/2024 Do You Have Smoke And Carbon Monoxide Detectors In Your Home? Yes Information not available 08/06/2024 Are You Passively Exposed To Smoke? No Information no t available 08/06/2024 Are There Any Smokers In Your House? No Information not available 08/06/2024 How Much Tobacco Do You Smoke? No Information not available 08/06/2024 Do You Participate In Social Media? Yes Information not available 08/06/2024 Has Tobacco Cessation Counseling Been Provided? No Information not available 08/06/2024 Have You Recently Traveled Abroad? No Information not available 08/06/2024 Do You Have Difficulty Walking Or Climbing Stairs? No Information not available 08/06/2024 Are You Currently In School? No Information not available 08/06/2024 What Contraceptive Method Was Reported At Start Of This Visit? None Information not available 08/06/2024 Do You Have Any Dietary Restrictions? Yes Information not available 08/06/2024 Sex: Female Functional Status Question Answer Note LastModified by [employer] Details LastModified Time Do you use any illicit or recreational drugs? No Information not available 08/06/2024 Do you or have you ever used any other forms of tobacco or nicotine? No Information not available 08/06/2024 What is your level of alcohol consumption? None Information not available 08/06/2024 Are you currently employed? Yes Information not available 08/06/2024 Do you have transportation difficulties? No Information not available 08/06/2024 Are you able to walk independently without assistance or assistive devices? [employer]OREST Information not available 08/06/2024 Do you have difficulty doing errands alone? No Information not available 08/06/2024 Are you able to care for yourself independently? Yes Information not available 08/06/2024 Do you have difficulty dressing, bathing, grooming, or toileting? No Information not available 08/06/2024 Mental Status Question Answer Note LastModified by Organizat ion Details LastModified Time Do you feel stressed (tense, restless, nervous, or anxious, or unable to sleep at night)? [id number] Information not available 08/06/2024 Do you have difficulty concentrating, remembering or making decisions? No Information no t available 08/06/2024 Family History Relationship Description Onset Age of this Age Resolved Age Notes LastModified by Organization Details LastModified Time Maternal Grandmother Myocardial infarction Not available 08/06 10:46:01 Paternal Grandmother Myocardial infarction Not available 08/06 10:46:05 Paternal Grandmother Diabetes mellitus Not available 2023 10:46:19 Father Diabetes mellitus Not available 2023 10:46:14 Father Hypertensive disorder Not available 2023 10:46:34 Father Hypercholest erolemia Not available 2023 10:46:49 Mother Hypertensive disorder Not available 2023 10:46:30 Mother Hypercholest erolemia Not available 2023 10:46:45 Paternal Grandfather Kidney stone Not available 1 10/06/2023 10:47:04 Medical History Condition Response Coronary Artery Disease N Other Y Gout N Blood Diseases N Kidney Stones N Hyperthyroidism Y Blood Transfusion N Breast Cancer N Emergency room visit since last appointm ent. N Lung Disease N COPD N Depression N Hypothyroidism N Dermatologic Disorders N Defects or Inherited Disease N Developmental or Behavioral Disorders N Breast Problem N Difficulty Swallowing N Anesthesia Complications N History of STI N Anxiety Disorder N Meniere's disease N Autoimmune disease N Muscle, Joint, or Bone Problems N Vision or Eye Problems N Arthritis N Infertility N Polyps N Mental Disorder N Congenital Anomalies N Acid Reflux (GERD) N Cancer N Stroke N Neurologic/Epilepsy N Endometriosis N Bladder or Kidney Problems N High Cholesterol N Liver Disease N Organ Transplant N Psychiatric/Mental Health Condition N Dialysis N Headaches N Fibromyalgia N Schizophrenia N Kidney Disease N Allergies/Hayfever N Heart Problems Y Ear or Hearing Problems N Hospitalizations N Learning Disorder N Artificial Joints N Thyroid Problems N GI Problems N Acne N ADD/ADHD N Eating Disorder N Anemia N Constipation N Mental Illness N Diabetes Y Ovarian Cancer N Bedwetting N Hepatitis/Liver Disease N Tuberculosis N Eczema N Abuse/Domestic Violence N Diverticulitis N Asthma N Trauma/Violence N Substance Abuse N Reflux/GERD N Depression/ depression N Hepatitis N Heart Disease N Pulmonary Embolism N Tourette Syndrome N Chronic Ear Infections N Pre-Eclampsia N Hypertension N Chicken Pox N Autism Spectrum Disorder (ASD) N Osteoporosis N Thrombophilias N Gynecological History Statement/Question Response Abnormal Pap N Date of LMP 02/27/2025 Menses Monthly Y Date of Last Pap Smear 05/29/2024 Current Control Method None Most Recent Mammogram LMP Approximate Obstetrics History GPAL:G 2 P 2 0 0 2 Type Value Full Term 2 Living 2 Total 2 Past Encounters Encounter ID Performer Location Encounter Start Date Encounter Closed Date Diagnosis/Indication Diagnosis SNOMED-CT Code Diagnosis ICD10 Code Diagnosis IMO Codes Diagnosis Note [id number] JOEY Coburn [facility] [address] [place] [address] 08/06/2024 10:38:16 08/06/2024 11:08:37 Diabetes mellitus 53979800 E11.9 Body mass index 30+ - obesity 065849591 Z68.34 Essential hypertension 05471830 I10 Hypothyroidism 06753055 E03.9 Generalize d anxiety disorder 50683061 F41.1 [id number] JOEY Coburn [facility] [address] [place] [address] 03/04/2025 13:05:37 03/04/2025 13:49:27 Type 2 diabetes mellitus 35127853 E11.9 [id number] Diabetes mellitus 721755 09 E11.9 Health Concerns Section Related Observation LastModified by Organization Detai ls LastModified Time None Recorded Concern Status LastModified by Organization Details LastModified Time None Recorded Advance Directives Directive N: Payers Insurance Date Sequence Insurance Name Policy Number Policy Post Covered Member ID Post Member ID Guarantor Name 03/02/2025 1 [place] [id number] 9 [facility] [id number] [facility] Notes Date Note Type Note Provider Name and Address Organization Details Recorded Time 08/06/2024 text/html Patient presents to establish care.History of HTN, DM, hypothyroidism, anxiety.She has lost 7-8 pounds since May. States she is doing well.Sees endocrinology for hypothyroidism. JOEY Coburn [address] [place] [address], [address], [facility] [employer] 08/06/2024 12:47:59 03/04/2025 text/html ROS as noted in the HPI Patient presents for follow up on diabetes. States that she is doing well. No new issues. JOEY Coburn [address] [place] [address], [address], [facility] [employer] 03/04/2025 15:19:30 OBGyn Episode No OBEpisode recorded.
== END 2025-08-08 23:59 | disposition home or self-care (01) ==
LOC: RT 13:03
PROVIDERS: PCP Physician Assistant; Visit Provider Internal Medicine
DX: I08.1 Rheumatic disorders of both mitral and tricuspid valves (principal)
CPT/HCPCS: 93306